=== PATIENT | female | born 1970 | race Caucasian/White ===

== ENCOUNTER 2023-05-29 20:04 | Emergency (ER) | payer OTHER, SELFPAY ==
--- NOTE | ~2023-05-29 | XR_ITS ---
EXAM: XR shoulder LT min 2V DATE: 05/29/2023 23:43 HISTORY: Fall/ LEFT SHOULDER PAIN . COMPARISON: The. FINDINGS: Normal mineralization. No fracture or dislocation. No lytic or blastic lesion. Moderate AC joint and mild glenohumeral joint osteoarthritis. No erosion or periosteal change. Soft tissues with in normal limits. IMPRESSION: No acute osseous finding in the left shoulder. Reviewed, dictated and finalized at location K. SCAPE ARCHITECT AND PLANNER
--- NOTE | ~2023-05-29 | CT_ITS ---
EXAMINATION: CT abdomen pelvis w con DATE: 05/29/2023 23:50 INDICATION: Right abd pain TECHNIQUE: Computed tomography (CT) of the abdomen and pelvis was performed with 100 mL Omnipaque-350 intravenous contrast. Automated exposure control and iterative reconstruction technique were employe d. The dose-length product was 606.83 mGy-cm. COMPARISON: None. FINDINGS: Lower thorax: Bibasilar scar/atelectasis. Small bilateral pleural fluid collections. Liver: Enlarged. Diffusely low density somewhat heterogeneous liver parenchyma. Biliary/Gallbladder: Gallbladder is absent. Mild dilation of the common bile duct likely secondary to cholecystectomy. Pneumobilia. Pancreas: No mass or duct dilation. Spleen: 1.4 cm splenic hypodensity, possible cyst or hemangioma. Small pericapsular fluid collection. Adrenals:No mass. Kidneys: No suspicious mass, obstructing stone, or hydronephrosis. GI tract: Status post gastric surgery. Mild distal esophageal and gastric wall edema. No small or lar ge bowel dilation. Appendix not confidently visualized Mesentery/Peritoneum: No ascites, mass, or free air. Retroperitoneum: No mass. Pelvis: Normal urinary bladder. Absent uterus. Bilateral ovaries not confidently visualized. Soft Tissues: Soft tissues and body wall unremarkable. Bones: No acute osseous finding. IMPRESSION: Small bilateral pleural effusions. Hepatomegaly with steatosis. Heterogeneous liver parenchyma may be secondary to the steatosis, hepati tis, or cirrhosis. Pneumobilia. Correlate with biliary labs and any history of prior biliary/pancreatic procedures. Small perisplenic fluid collection may represent a small hematoma from recent overt or trivial trauma , possibly due to rupture/leakage of the subjacent splenic cyst/hemangioma. Reviewed, dictated and finalized at location K. INSPECTOR IMPRESSION: Small bilateral pleural effusions. Hepatomegaly with steatosis. Heterogeneous liver parenchyma may be secondary to the steatosis, hepatitis, or cirrhosis. Pneumobilia. Correlate with biliary labs and any history of prior biliary/pancr eatic procedures. Small perisplenic fluid collection may represent a small hematoma from recent o vert or trivial trauma, possibly due to rupture/leakage of the subjacent spleni c cyst/hemangioma.
[2023-05-29 20:25] VITALS: BP 121/76; PULSE 68; RESP 18; TEMP 36.6; O2SAT 97
[2023-05-29 21:28] LABS: Appearance Urine Clear (Clear); Bilirubin Urine Negative (Negative); Blood Urine Negative (Negative); Color Urine Yellow (Yellow); Glucose Urine UA Negative (Negative); Ketones Urine Negative (Negative); Leukocyte Esterase Ur Negative LEU/UL (Negative); Nitrate Urine Negative (Negative); Protein Urine Negative (Negative); Specific Grav Ur 1.019 (1.001-1.035)
[2023-05-29 21:35] LABS: Add Urine Microscopic? NO
[2023-05-29 21:58] LABS: Basophils Absolute Auto 0.1 K/mm3 (0.0-0.1); Basophils Percent Auto 0.6 % (0.2-1.2); Eosinophils Absolute Auto 0.1 K/mm3 (0-0.3); Eosinophils Percent Auto 0.5 % (0-4.4); Hematocrit 39.4 % (37.0-47.0); Hemoglobin 12.2 g/dL (12.0-15.0); Immature Granulocyte Absolute 0.04 K/mm3 (0.00-0.031); Immature Granulocyte Percent A 0.4 % (0-0.5); Lymphocytes Absolute Auto 2.66 K/mm3 (0.9-3.2); Lymphocytes Percent Auto 24.1 % (18.3-44.2); Mean Corpuscular Volume 90.6 fl (80-100); Mean Platelet Volume 8.6 fl (7.4-10.4); Monocytes Absolute Auto 0.5 K/mm3 (0.1-0.6); Monocytes Percent Auto 4.9 % (2.6-8.5); Neutrophils Absolute Auto 7.7 K/mm3 (1.3-6.7); Neutrophils Percent Auto 69.5 % (45.5-73.1); Platelet Count Result 342 k/mm3 (150-375); Red Blood Count 4.35 M/mm3 (4.2-5.4); Red Cell Distribution Width 14.2 % (11.5-14.5); White Blood Count 11.1 K/mm3 (4.5-10.0)
[2023-05-29 22:11] LABS: Alanine Aminotransferase 16 U/L (6-35); Albumin Level 4.2 g/dL (3.5-5.1); Alkaline Phosphatase 91 U/L (38-126); Anion Gap 9 mmol/L (8-16); Aspartate Amino Transferase 22 U/L (14-36); Bilirubin,Total 0.5 mg/dL (0.2-1.3); Blood Urea Nitrogen 10 mg/dL (7-17); Calcium 9.1 mg/dL (8.4-10.2); Carbon Dioxide 24 mmol/L (22-30); Chloride 106 mmol/L (98-107); Estimated CRCL calculation 79 ml/min; Estimated Glomerular Filt Rate > 60; Glucose 97 mg/dL (65-110); Lipase 19 U/L (23-300); Potassium 3.7 mmol/L (3.4-5.0); Sodium 139 mmol/L (137-145)
[2023-05-29 22:48] VITALS: BP 121/88; PULSE 57; RESP 14; O2SAT 96
[2023-05-29] MEDS: ONDANSETRON INJ 4 MG/2 ML VIAL IV PUSH (23:26)
[2023-05-29] MEDS: MORPHINE SULFATE (*CRX) 4 MG/ML INJ IV PUSH (23:26)
[2023-05-30] MEDS: METOCLOPRAMIDE HCL INJ 10 MG/2 ML VIAL IV PUSH (00:50)
--- NOTE | 2023-05-30 00:57 | ED.ABDPAIN ---
HPI - Abdominal Pain General Chief Complaint: Abdominal Pain Stated Complaint: abd pain and nausea, hx gastric sleeve 2022 Time Seen by Provider: 05/29/23 22:44 History of Present Illness HPI narrative: Patient is a 52-year-old female who presents to the emergency department this evening complaining of generalized abdominal pain. Patient states that approximately 2-3 weeks ago she was seen in urgent care for abdominal pain and was informed that she has a kidney stone. Patient states at that time she had hematuria and calcium oxalate in her urine. Patient states that she has also been nauseous but denies any vomiting episodes. She denies any current hematuria or dysuria and is currently denying any constipation or diarrhea. Patient states that pain is in her mid epigastric region and sometimes radiates to her right flank. Patient states that she took Zofran at home for her nausea which did not alleviate her symptoms. She is currently denying any chest pain or shortness of breath. There are no other modifying, alleviating, or precipitating factors at this time. Related Data Allergies Allergy/AdvReac Type Severity Reaction Status Date / Time azithromycin Allergy Unknown Unknown Verified 05/29/23 23:31 codeine Allergy Unknown Unknown Verified 05/29/23 23:31 Sulfa (Sulfonamide Allergy Unknown Unknown Verified 05/29/23 23:31 Antibiotics) tetracycline Allergy Unknown Unknown Verified 05/29/23 23:31 lisinopril AdvReac Intermediate Unknown Verified 05/29/23 23:31 Review of Systems Review of Systems: All systems are reviewed and are negative unless stated otherwise in the HPI. Exam Narrative: General: Alert, awake, afebrile, in no acute distress. HEENT: PERRL, no rhinorrhea, no post nasal drip, oropharynx clear. Neck: Trachea midline, no JVD, no lymphadenopathy. Cardiovascular: Regular rate and rhythm, no murmurs, rubs or gallops, no peripheral edema. Respiratory: Clear to auscultation bilaterally, no tachypnea, no wheezing, no rhonchi, no rubs, no respiratory distress. Abdomen: Soft, nontender, nondistended, no rebound, no guarding, no peritoneal signs. Musculoskeletal: No joint swelling or deformity, normal muscle tone. Skin: No rashes or petechia, no signs of infection. Psychiatric: Alert and oriented, normal behavior and judgment for situation. Neurological: Alert and oriented to person, place, and time. Follows all commands. No focal deficits, speech is clear and fluent. Course Vital Signs Vital signs: Vital Signs Temperature 97.9 F 05/29/23 20:25 Pulse Rate 68 05/29/23 20:25 Respiratory Rate 18 05/29/23 20:25 Blood Pressure 121/76 05/29/23 20:25 Pulse Oximetry 97 05/29/23 20:25 Oxygen Delivery Room Air 05/29/23 20:25 Temperature 97.9 F 05/29/23 20:25 Pulse Rate 57 L 05/30/23 01:22 Respiratory Rate 16 05/30/23 01:22 Blood Pressure 129/81 05/30/23 01:22 Pulse Oximetry 97 05/30/23 01:22 Oxygen Delivery Room Air 05/29/23 20:25 MDM - Abdominal Pain MDM Narrative Medical decision making narrative: The patient was evaluated by myself in the emergency department. History is obtained from patient who is an independent historian and physical exam was performed. External medical records were reviewed at this time. IV was established and pertinent tests were ordered. Patient was administered 4 mg of IV Zofran and 4 mg of IV morphine for nausea and pain. Patient's nausea did not improve after the Zofran and she was administered 10 mg of IV Reglan at this time. EKG was obtained which revealed sinus bradycardia at a rate of 55 beats per minute. EKG was independently interpreted by me and is currently pending official cardiology read. Laboratory results obtained revealing no acute process. Imaging studies obtained included CT abdomen and pelvis with IV contrast which was independently interpreted by me revealing hepatic steatosis, splenic hemangioma otherwise no acute process
--- NOTE | 2023-05-30 01:01 | ECG_ITS ---
Measurements Intervals [place] Rate: 55 P: 33 DE: 149 QRS: -7 QRSD: 93 T: -5 QT: 440 QTc: 422 Interpretive Statements SINUS BRADYCARDIA VOLTAGE CRITERIA FOR LVH BORDERLINE ST-T WAVE ABNORMALITY- ANT/INF LEADS BASELINE ARTIFACT- I, III, AVL BORDERLINE ECG COMPARED TO ECG 08/07/2018 13:54:17 SINUS BRADYCARDIA NOW PRESENT Electronically Signed On 05-30-2023 6:49:00 SAFETY ATTENDANT by Shubham Quinn D.O.
[2023-05-30 01:22] VITALS: BP 129/81; PULSE 57; RESP 16; O2SAT 97
== END 2023-05-30 02:12 | disposition home or self-care (01) ==
PROVIDERS: Emergency Provider Emergency Medicine
DX: R10.84 Generalized abdominal pain (principal); K76.0 Fatty (change of) liver, not elsewhere classified; Z98.84 Bariatric surgery status; M25.512 Pain in left shoulder; Z87.442 Personal history of urinary calculi; R00.1 Bradycardia, unspecified; R94.31 Abnormal electrocardiogram [ECG] [EKG]
CPT/HCPCS: 36415; 73030; 74177; 80053; 81003; 83690; 85025; 93005; 96374; 96375; 99284; J2270; J2405; J2765; Q9967

== ENCOUNTER 2023-10-23 18:11 | Emergency (ER) | payer MEDICAID, SELFPAY ==
[2023-10-23 18:20] VITALS: BP 124/79; PULSE 71; RESP 12; TEMP 36.6; O2SAT 99
--- NOTE | 2023-10-23 20:00 | PC.NURSE ---
Patient states she has a history of migraines and feels like this is way worse than migraine pain. 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 patient states that she has had multiple concussions and in CT scans for those concussions she was told that she has degenerative changes to the cervical spine and is concerned with the amount of pain she is feeling.
--- NOTE | 2023-10-23 20:31 | ED.NECK ---
HPI - Neck Pain/Injury General Chief Complaint: Neck Pain/Injury Stated Complaint: NECK PAIN/BILATERAL SHOULDER PAIN Time Seen by Provider: 10/23/23 19:55 Source: patient Limitations: no limitations History of Present Illness HPI Narrative: Patient is a 52-year-old female presents to the emergency department complaining of neck pain that radiates to her bilateral shoulders. Patient notes that back in July towards the end of the month she take a baseball to the head from her son and was diagnosed with a concussion and since then she has been having frequent episodes of pain in her neck that radiates to her bilateral shoulders and she has been worked up for this as an outpatient is seen a neurologist to his planning to refer her to a pain specialist which she has not been referred to a neurosurgeon she also notes that she has had CTs of her head and cervical spine in addition to MRIs of her head and cervical spine in which she was told she has degenerative disc disease. Patient notes that her most recent flare-up is been going on for the past couple days and she has been trying NSAIDs, Tylenol, baclofen, cyclobenzaprine and not getting any significant relief. 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 Patient denies urinary incontinence, stool incontinence, saddle anesthesia, numbness, weakness, paresthesias. Related Data Allergies Allergy/AdvReac Type Severity Reaction Status Date / Time azithromycin Allergy Unknown Unknown Verified 05/29/23 23:31 codeine Allergy Unknown Unknown Verified 05/29/23 23:31 Sulfa (Sulfonamide Allergy Unknown Unknown Verified 05/29/23 23:31 Antibiotics) tetracycline Allergy Unknown Unknown Verified 05/29/23 23:31 lisinopril AdvReac Intermediate Unknown Verified 05/29/23 23:31 Review of Systems Review of Systems: A 10 system review of systems was completed on the patient and is negative except for what is stated in the HPI. Nursing and ancillary documentation was reviewed. PMFSH Comments At time of signature, I have reviewed and agree with nursing past medical, surgical, social and family history unless otherwise noted. Please see the nursing chart for further information. There is no relevant family history pertinent to the presenting complaint. Exam Narrative: CONST: No acute distress. Well nourished. HENMT: Head is normocephalic and atraumatic. Moist mucous membranes. No posterior oropharynx erythema. EYES: No conjunctival icterus, injection, or pallor. PERRL. NECK: No meningeal signs. No carotid bruits bilaterally. Mild bilateral paracervical muscle spasms and mild bilateral trapezius spasms. RESP: Able to speak in full sentences. CARDIO: Regular rate. Regular rhythm. 2+ radial pulses bilaterally. GI: Nondistended. SKIN: No rashes or lesions noted on exposed skin. NEURO: Oriented x3. Moves all extremities. Motor strength is 5/5 bilateral upper extremities. Sensation intact to light touch throughout bilateral upper extremities. EXTREM/MSK/BACK: No pedal edema. PSYCH: Normal affect. Course Vital Signs Vital signs: Vital Signs Temperature 97.9 F 10/23/23 18:20 Pulse Rate 71 10/23/23 18:20 Respiratory Rate 12 10/23/23 18:20 Blood Pressure 124/79 10/23/23 18:20 Pulse Oximetry 99 10/23/23 18:20 Oxygen Delivery Room Air 10/23/23 18:20 Temperature 97.9 F 10/23/23 18:20 Pulse Rate 71 10/23/23 18:20 Respiratory Rate 12 10/23/23 18:20 Blood Pressure 124/79 10/23/23 18:20 Pulse Oximetry 99 10/23/23 18:20 Oxygen Delivery Room Air 10/23/23 18:20 MDM - Neck Pain/Injury MDM Narrative Medical decision making narrative: Patient presents with the above complaint. Initial vitals are remarkable for no significant abnormalities. Physical examination as noted above. Differential diagnosis includes was not limited to: Cervical radiculopathy, muscle spasms, muscul
[2023-10-23] MEDS: KETOROLAC 30 MG/ML VIAL (*BKC) IM (20:45)
[2023-10-23] MEDS: diazePAM (*CRX) 5 MG TABLET PO (20:46)
[2023-10-23] MEDS: HYDROcodone/acetaminophen (*CRX) 5-325 MG TABLET 1 TAB PO (21:09)
[2023-10-23 21:33] VITALS: BP 137/72; PULSE 72; RESP 18; TEMP 36.6; O2SAT 98
== END 2023-10-23 21:35 | disposition home or self-care (01) ==
PROVIDERS: Emergency Provider Student in an Organized Health Care Education/Training Program; PCP Family Medicine
DX: M54.12 Radiculopathy, cervical region (principal); S16.1XXA Strain of muscle, fascia and tendon at neck level, initial encounter; W21.05XA Struck by basketball, initial encounter
CPT/HCPCS: 96372; 99283; A9270; J1885

== ENCOUNTER → 2024-10-03 16:12 | Emergency (ER) | payer OTHER, SELFPAY ==
[2024-10-03 16:16] VITALS: BP 141/85; PULSE 66; TEMP 36.3; O2SAT 98
--- OUTSIDE RECORDS SUMMARY | 2024-10-03 16:16 | XMS_ITS | Encounter Summary ---
Author Organization [facility] Address 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
--- OUTSIDE RECORDS SUMMARY | 2024-10-03 16:16 | XMS_ITS | Encounter Summary ---
Author Organization [facility] Address [facility] [place] [address] Care Team Providers Care Voice Over Announcer Name Role Phone Angel Andrade MD Unavailable [phone] Simon Hughes MD Primary Care Provider [phone] Emerson Watson MD Primary Care Provider [phone] Emerson Watson MD Primary Care Provider [phone] Emerson Watson MD Primary Care Provider [phone] Emerson Watson MD Primary Care Provider [phone] Reji Ramirez MD Unavailable [phone] Encounter Details Date Type Department Care Team (Late st Contact Info) Description 03/25/2022 MyChart Message Enc [facility] [address] [place] [address] Emerson Watson MD [address] [place], [place] [id number] Rose Guallpa 1970 Social History Tobacco Use Types Packs/Day Years Used Date Smoking Tobacco: Never Smokeless Tobacco: Never Alcohol Use Standard Drinks/Week Comments Yes 0 (1 standard drink = 0.6 oz pur e alcohol) 2 drinks per week PHQ-2 Answer Date Recorded PHQ-2 Score - If the patient scores above 3, please move on to questions 3-9 0 10/01/2020 Comments No Sex and Gender Information Value Date Recorded Sex Assigned at Female 04/10/2024 11:52 AM LIVESTOCK LABORER Legal Sex Female 7:00 PM CDT Gender Identity Female 05/08/2024 9:04 PM LIVESTOCK LABORER Sexual Orientation Straight 05/08/2024 9: 04 PM LIVESTOCK LABORER COVID-19 Exposure Response Date Recorded In the last 10 days, have yo u been in contact with someone who was confirmed or suspected to have Coronavirus/COVID-19? No / Unsure 03/23/2022 10:57 AM LIVESTOCK LABORER documented as of this encounter Functional Status * RETIRED Are you deaf or do you have serious difficulty hearing Answer Date of Assessment Author Status No 09/25/2019 10:23 PM CDT Acti ve * RETIRED Are you blind or do you have serious difficulty seeing, even when wearing glasses? Answer Date of Assessment Author Status No 09/25/2019 10:23 PM CDT Acti ve * Do you have serious difficulty walking or climbing stairs? Answer Date of Assessment Author Status No 09/25/2019 10:23 PM CDT Arcelia Ahn RN Active * Do you have difficulty dressing or bathing? Answer Date of Assessment Author Status No 09/25/2019 10:23 PM CDT Arcelia Ahn RN Active * Because of a physical, mental, or emotional condition, do you have difficulty doing errands alone such as visiting a doctor's office or shopping? Answer Date of Assessment Author Status No 09/25/2019 10:23 PM CDT Arcelia Ahn RN Active documented as of this encounter Mental Status * Because of a physical, mental, or emotional condition, do you have serious difficulty concentrating, remembering, or making decisions? Answer Entry Date Author Status No 09/25/2019 10:23 PM CDT Arcelia Ahn, RN Active documented in this encounter Progress Notes * Emerson Watson MD - 03/31/2022 4:55 PM CST Addressed on other thread. Will need OV to assess and med changes STOCK LABORER documented in this encounter Plan of Treatment Upcoming Encounters Date Type Department Care Team (Late st Contact Info) Description 01/21/2025 2:20 PM CDT Office Visit [address] [place] [address] Emerson Watson MD [address] [place] [address] documented as of this encounter Visit Diagnoses Not on filedocumented in this encounter Additional Health Concerns Infection Onset Date Last Indicated Resolved Time COVID-19 Rule Out 07/26/2022 07/26/2022 07/26/2022 4:24 PM CDT COVID-19 Rule Out 03/10/2023 03/10/2023 03/10/2023 2:55 PM LIVESTOCK LABORER COVID-19 Rule Out 03/18/2023 03/18/2023 03/18/2023 2:42 PM LIVESTOCK LABORER RSV 03/18/2023 03/18/2023 03/28/2023 12:3 2 AM LIVESTOCK LABORER Influenza - Seasonal 03/18/2023 03/18/2023 024 12:32 AM LIVESTOCK LABORER COVID-19 Rule Out 11/24/2023 11/24/2023 11/24/2023 10:13 AM CDT COVID-19 Rule Out 03/22/2024 03/22/2024 03/22/2024 4:59 PM LIVESTOCK LABORER COVID-19 Rule Out 04/30/2024 04/30/2024 04/30/2024 1:33 PM LIVESTOCK LABORER Assessment Noted Time PHQ-9 Depression Total Score: 0 10/02/19 2:26 PM CDT documented as of this encounter Care Teams Voice Over Announcer Relationship Specialty Start Date End Date Simon Hughes MD [address] [place] [address] [place] [address] PCP - General INTERNAL MEDICINE 09/10/21 06/15/22 Emerson Watson MD [facility] [place] [address] PCP - General FAMILY PRACTICE 06/16/22 08/01/22 Emerson Watson MD [address] [place] [address] PCP - General FAMILY PRACTICE 08/03/22 08/07/22 Emerson Watson MD [address] [facility] [place] [address] PCP - General FAMILY PRACTICE 08/02/22 08/02/22 Emerson Watson MD [address] [place] [address] [place] [address] PCP - General FAMILY PRACTICE 08/11/22 Angel Andrade MD [address] [address] Referring Physician GASTROENTEROLOGY 12/17/20 [place] [address] [place] [address] SURGERY 03/10/23 documented as of this encounter
--- OUTSIDE RECORDS SUMMARY | 2024-10-03 16:16 | XMS_ITS | Encounter Summary ---
Author Organization [facility] Address [facility] [place] [address] Care Team Providers Care Pipe Welder Name Role Phone Angel Andrade MD Unavailable [phone] Emerson Watson MD Primary Care Provider [phone] Reji Ramirez MD Unavailable [phone] Encounter Details Date Type Department Care Team (Late st Contact Info) Description 10/31/2023 Democracy Enginet Message Enc [facility] [address] [place] [address] Emerson Watson MD [address] [place] [address] Medication Options for neck pain Social History Tobacco Use Types Packs/Day Years Used Date Smoking Tobacco: Never Passive Smoke Exposure: Never Smokeless Tobacco: Never Alcohol Use Standard Drinks/Week Comments Yes 0 (1 standard drink = 0.6 oz pur e alcohol) 2 drinks per week Humiliation, Afraid, Rape, and Kick questionnair e Answer Date Recorded Within the last year, have y ou been afraid of your partner or ex-partner? No 06/27/2022 Within the last year, have y ou been humiliated or emotionally abused in other ways by your partner or ex-partner? No Within the last year, have y ou been kicked, hit, slapped, or otherwise physically hurt by your partner or ex-partner? No 06/27/2022 Within the last year, have y ou been raped or forced to have any kind of sexual activity by your partner or ex-partner? No 06/27/2022 Social Connection and Isolat ion Panel [NHANES] Answer Date Recorded In a typical week, how many times do you talk on the phone with family, friends, or neighbors? More than three times a week 05/16/2022 How often do you get togethe r with friends or relatives? More than three times a week 05/16/2022 How often do you attend chur or adventist services? More than 4 times per year 05/16/2022 Do you belong to any clubs o r organizations such as latter-day groups, unions, fraternal or athletic groups, or school groups? Yes 05/16/2022 How often do you attend meet ings of the clubs or organizations you belong to? More than 4 times per year 05/16/2022 Are you , , di vorced, , never , or living with a partner? 05/16/2022 AUDIT-C Answer Date Recorded Q1: How often do you have a drink containing alc ohol? Monthly or less 05/16/2022 Q2: How many drinks containi ng alcohol do you have on a typical day when you are drinking? 3 or 4 05/16/2022 Q3: How often do you have si x or more drinks on one occasion? Never 05/16/2022 Overall Financial Resource Strain (CARDIA) Answe r Date Recorded How hard is it for you to pa y for the very basics like food, housing, medical care, and heating? Not hard at all 06/27/2022 PHQ-2 Answer Date Recorded Patient Health Questionnaire-2 Score 0 08/24/2023 [facility] - Occupational Stress Questionnaire Answer Date Recorded Do you feel stress - tense, restless, nervous, or anxious, or unable to sleep at night because your mind is troubled all the time - these days? To some extent 05/16/2022 Exercise Vital Sign Answer Date Recorde d On average, how many days pe r week do you engage in moderate to strenuous exercise (like a brisk walk)? 0 days 05/16/2022 On average, how many minutes do you engage in exercise at this level? 0 min 05/16/2022 Hunger Vital Sign Answer Date Recorded Within the past 12 months, y ou worried that your food would run out before you got the money to buy more. Never true 06/28/19 23 Within the past 12 months, t he food you bought just didn't last and you didn't have money to get more. Never true 06/27/2022 PRAPARE - Transportation Answer Date Re corded In the past 12 months, has l ack of transportation kept you from medical appointments or from getting medications? No 05/2022 In the past 12 months, has l ack of transportation kept you from meetings, work, or from getting things needed for daily living? No 06/27/2022 Housing Stability Vital Sign Answer Gregory e Recorded In the last 12 months, was t here a time when you were not able to pay the mortgage or rent on time? No 06/27/2022 In the last 12 months, how many places have you lived? 1 06/27/2022 In the last 12 months, was t here a time when you did not have a steady place to sleep or slept in a custodial (including now)? No 06/27/2022 Comments No Sex and Gender Information Value Date Recorded Sex Assigned at Female 04/10/2024 11:52 AM ROOFER HELPER VINYL COATING Legal Sex Female 7:00 PM CDT Gender Identity Female 05/08/2024 9:04 PM ROOFER HELPER VINYL COATING Sexual Orientation Straight 05/08/2024 9: 04 PM ROOFER HELPER VINYL COATING documented as of this encounter Functional Status * Are you deaf or do you have serious difficulty hearing Answer Date of Assessment Author Status No 06/27/2022 11:33 PM Kimberly Ponce RN Active * Are you blind or do you have serious difficulty seeing, even when wearing glasses? Answer Date of Assessment Author Status No 06/27/2022 11:33 PM Kimberly Ponce RN Active * Do you have serious difficulty walking or climbing stairs? Answer Date of Assessment Author Status No 06/27/2022 11:33 PM Kimberly Ponce RN Active * Do you have difficulty dressing or bathing? Answer Date of Assessment Author Status No 06/27/2022 11:33 PM Kimberly Ponce RN Active * Because of a physical, mental, or emotional condition, do you have difficulty doing errands alone such as visiting a doctor's office or shopping? Answer Date of Assessment Author Status No 06/27/2022 11:33 PM CDT Kimberly Polanco RN Active documented as of this encounter Mental Status * Because of a physical, mental, or emotional condition, do you have serious difficulty concentrating, remembering, or making decisions? Answer Entry Date Author Status No 06/27/2022 11:33 PM CDT Kimberly Polanco RN Active documented in this encounter Progress Notes * Emerson Watson MD - 11/01/2023 10:07 AM CDT TCAs third line treatment for nerve pain. Can trial and would likely see some improvement in symptoms. Would like psych to manage. documented in this encounter Plan of Treatment Upcoming Encounters Date Type Department Care Team (Late st Contact Info) Description 01/21/2025 2:20 PM CDT Office Visit [facility] [address] [place] [address] Emerson Watson MD [address] [place] [address] documented as of this encounter Visit Diagnoses Not on filedocumented in this encounter Additional Health Concerns Infection Onset Date Last Indicated Resolved Time COVID-19 Rule Out 11/24/2023 11/24/2023 11/24/2023 10:13 AM CDT COVID-19 Rule Out 03/22/2024 03/22/2024 03/22/2024 4:59 PM ROOFER HELPER VINYL COATING COVID-19 Rule Out 04/30/2024 04/30/2024 04/30/2024 1:33 PM ROOFER HELPER VINYL COATING Assessment Noted Time PHQ-9 Depression Total Score: 0 02/14/20 12:57 PM ROOFER HELPER VINYL COATING documented as of this encounter Care Teams Pipe Welder Relationship Specialty Start Date End Date Emerson Watson MD [address] [place] [address] PCP - General FAMILY PRACTICE 08/11/22 Angel Andrade MD [address] [facility] [address], [place] [address] Referring Physician GASTROENTEROLOGY 12/17/20 [place] [address] [place] [address] SURGERY 03/10/23 documented as of this encounter
--- OUTSIDE RECORDS SUMMARY | 2024-10-03 16:16 | XMS_ITS | Encounter Summary ---
Author Organization [employer] Address [address] [place] [address] Care Team Providers Care Plant Control Aide Name Role Phone Emerson Watson MD Primary Care Provider Encounter Details Date Type Department Care Team (Latest Contact Info) Description 01/12/2005 Outpatient Historical HIS PATIENT IN A BED Michel Irby MD [address] [place], [place] [id number] DYSMENORRHEA (Primary Dx) Social History Tobacco Use Types Packs/Day Years Used Date Smoking Tobacco: Never Assessed Comments Unknown Sex and Gender Information Value Date Recorded Sex Assigned at Not on file Legal Sex Female 3:33 AM TIP BANDER Gender Identity Not on file Sexual Orientation Not on file documented as of this encounter Plan of Treatment Not on file documented as of this encounter Procedures Procedure Name Priority Date/Time Associated Diagnosis Comments URINALYSIS WITH REFLEX CULTURE Routine 01/13/2005 8:30 AM CDT URINALYSIS W/REFLEX MICROSCOPIC Routine 01/13/2005 8:30 AM CDT CBC WITH DIFFERENTIAL Routine 01/13/2005 4:35 AM CDT CBC WITH DIFFERENTIAL Routine 01/13/2005 4:35 AM CDT POC , URINE Routine 01/12/2005 8:20 AM CDT HEMOGLOBIN AND HEMATOCRIT Routine 01/12/2005 8:05 AM CDT BASIC METABOLIC PANEL Routine 01/12/2005 8:05 AM CDT documented in this encounter Results * URINALYSIS (01/13/2005 8:30 AM CDT) COLOR UA Yellow INTERFACE SYSTEM CLARITY UA Clear Clear INTERFACE SYSTEM SPECIFIC GRAVITY UA 1.010 1.001 - 1.035 INTERFACE SYSTEM PH UA 6.5 5.0 - 8.0 INTERFACE SYSTEM LEUKOCYTE ESTERASE UA Negative Negative INTERFACE SYSTEM NITRITE UA Negative Negative INTERFACE SYSTEM PROTEIN UA Negative Negative INTERFACE SYSTEM GLUCOSE UA Negative Negative INTERFACE SYSTEM KETONES UA Negative Negative INTERFACE SYSTEM UROBILINOGEN UA <1 <1 mg/dL INTE RFACE SYSTEM BILIRUBIN UA Negative Negative INTERFA CE SYSTEM BLOOD UA Negative Negative INTERFACE SYSTEM 01/13/2005 8:30 AM CDT [facility] URINE ORDERABLES Final Result Performing Organization Address [facility] Phone Number INTERFACE SYSTEM Refer to clinic/hospital department * URINALYSIS WITH REFLEX CULTURE (01/13/2005 8:30 AM CDT) Pathologist [facility] URINE CULTURE ORDER Not indicated INTERFACE SYSTEM Comment: Criteria for a reflex culture include one or more of the following: Abn ormal nitrite, leukocyte esterase, WBCs or RBCs. Lack of qualifying criteria does not exclude the possiblity of a urinary tract infection. Dilute urine, drug interference, etc. may decrease the sensitivity of the criteria analytes. 01/13/2005 8:30 AM CDT [facility] URINE ORDERABLES Final Result Performing Organization Address [facility] Phone Number INTERFACE SYSTEM Refer to clinic/hospital department * (ABNORMAL) CBC WITH DIFFERENTIAL (01/13/2005 4:35 AM CDT) NEUTROPHILS 79(H) 45 - 70 % INTERFAC E SYSTEM LYMPHOCYTES 13(L) 16 - 45 % INTERFAC E SYSTEM MONOCYTES 8 3 - 13 % INTERFACE SYSTEM EOSINOPHILS 0 0 - 7 % INTERFAC E SYSTEM BASOPHILS 0 0 - 2 % INTERFACE SYSTEM NEUTROPHIL ABSOLUTE 13.56(H) 1.90 - 7.00 K/uL INTERFACE SYSTEM LYMPHOCYTE ABSOLUTE 2.22 0.70 - 4.50 K/uL INTERFACE SYSTEM MONOCYTE ABSOLUTE 1.36(H) 0.10 - 1.30 K/uL INTERFACE SYSTEM EOSINOPHIL ABSOLUTE 0.01 0.00 - 0.70 K/uL INTERFACE SYSTEM BASOPHILS ABSOLUTE 0.04 0.00 - 0.20 K/uL INTERFACE SYSTEM 01/13/2005 4:35 AM CDT Michel Irby MD HEMATOLOGY ORDERABLES Final R esult Performing Organization Address [facility] Co de Phone Number INTERFACE SYSTEM Refer to clinic/hospital department * (ABNORMAL) CBC WITH DIFFERENTIAL (01/13/2005 4:35 AM CDT) WBC 17.2(H) 4.0 - 9.8 K/uL INTERFACE SYSTEM RBC 4.26 3.90 - 4.90 M/uL INTERFACE SYSTEM HEMOGLOBIN 12.3 11.8 - 14.8 g/dL INTERFACE SYSTEM HEMATOCRIT 38.7 35.5 - 44.0 % INTERFACE SYSTEM MCV 90.8 82.0 - 99.0 fL INTERFACE SYSTEM MCH 28.9 27.2 - 32.6 pg INTERFACE SYSTEM MCHC 31.8 31.5 - 35.5 % INTERFACE SYSTEM RDW 13.7 11.5 - 14.5 % INTERFACE SYSTEM RDW-STDEV 45.1 37.1 - 48.7 fL INTERFACE SYSTEM PLATELETS 357(H) 140 - 350 K/uL INTERFACE SYSTEM MPV 9.0(L) 9.3 - 12.4 fL INTERFACE SYSTEM 01/13/2005 4:35 AM CDT Michel Irby MD HEMATOLOGY ORDERABLES Final R esult Performing Organization Address [facility] Co de Phone Number INTERFACE SYSTEM Refer to clinic/hospital department * POC , URINE (01/12/2005 8:20 AM CDT) HCG QUAL URINE Negative Negative INTER FACE SYSTEM SPECIFIC GRAVITY UA 1.015 1.001 - 1.035 INTERFACE SYSTEM 01/12/2005 8:20 AM CDT Michel Irby MD POINT OF CARE TESTING Final R esult Performing Organization Address [facility] Phone Number INTERFACE SYSTEM Refer to clinic/hospital department * BASIC METABOLIC PANEL (01/12/2005 8:05 AM CDT) GLUCOSE 87 65 - 109 mg/dL INTERFACE SYSTEM CREATININE 0.9 0.4 - 1.2 mg/dL INTERFACE SYSTEM CALCIUM 9.3 8.6 - 10.2 mg/dL INTERFACE SYSTEM BUN 13 6 - 20 mg/dL INTERFACE SYSTEM SODIUM 135 135 - 145 mmol/L INTERFACE SYSTEM POTASSIUM 3.7 3.5 - 4.9 mmol/L INTERFACE SYSTEM CHLORIDE 98 96 - 108 mmol/L INTERFACE SYSTEM CO2 28 22 - 30 mmol/L INTERFACE SYSTEM 01/12/2005 8:05 AM CDT Michel Irby MD CHEMISTRY ORDERABLES Final Re sult Performing Organization Address [facility] Phone Number INTERFACE SYSTEM Refer to clinic/hospital department * HEMOGLOBIN AND HEMATOCRIT (01/12/2005 8:05 AM CDT) HEMOGLOBIN 14.2 11.8 - 14.8 g/dL INTERFACE SYSTEM HEMATOCRIT 42.8 35.5 - 44.0 % INTERFACE SYSTEM 01/12/2005 8:05 AM CDT Michel Irby MD HEMATOLOGY ORDERABLES Final R esult Performing Organization Address [facility] Phone Number INTERFACE SYSTEM Refer to clinic/hospital department documented in this encounter Visit Diagnoses Diagnosis Dysmenorrhea- Primary documented in this encounter Care Teams Plant Control Aide Relationship Specialty Start Date End Date Emerson Watson MD [address] [place] [address] [place] [address] PCP - General Family Practice 09/20/22 documented as of this encounter
--- OUTSIDE RECORDS SUMMARY | 2024-10-03 16:16 | XMS_ITS | Encounter Summary ---
Author Organization [facility] Address [facility] [place] [address] Care Team Providers Care Build Master Name Role Phone Angel Andrade MD Unavailable [phone] Emerson Watson MD Primary Care Provider [phone] Reji Ramirez MD Unavailable [phone] Encounter Details Date Type Department Care Team (Late st Contact Info) Description 09/19/2023 XbyMet Message Enc [facility] [address] [place] [address] Emerson Watson MD [address] [place] [address] Health Form for Work Social History Tobacco Use Types Packs/Day Years [...] How often do you attend chur or catholic services? More than 4 times per year 05/16/2022 Do you belong to any clubs o r organizations such as restorationism groups, unions, fraternal or athletic groups, or [...] Recorded Patient Health Questionnaire-2 Score 0 08/24/2023 [facility] - [...] place to sleep or slept in a nursing home (including now)? No 06/27/2022 Comments No Sex and Gender Information Value Date Recorded Sex Assigned at Female 04/10/2024 11:52 AM BOXER OPERATOR Legal Sex Female 7:00 PM CDT Gender Identity Female 05/08/2024 9:04 PM BOXER OPERATOR Sexual Orientation Straight 05/08/2024 9: 04 PM BOXER OPERATOR documented as of this encounter Functional Status [...] Progress Notes * Emerson Watson MD - 09/19/2023 11:34 AM CDT This was filled out at least a week ago and should have been scanned in/taken care of. Not on my desk. * Rosa Patel MA - 09/19/2023 10:32 AM CDT do you have this form to complete? Please advise documented in this encounter Plan of Treatment Upcoming Encounters Date Type Department Care Team (Late st Contact Info) Description 01/21/2025 2:20 PM CDT Office Visit [facility] [address] [place] [address] Emerson Watson MD [address] [place] [address] documented as of this encounter Visit Diagnoses Not on filedocumented in this encounter Additional Health Concerns Infection Onset Date Last Indicated Resolved Time COVID-19 Rule Out 11/24/2023 11/24/2023 11/24/2023 10:13 AM CDT COVID-19 Rule Out 03/22/2024 03/22/2024 03/22/2024 4:59 PM BOXER OPERATOR COVID-19 Rule Out 04/30/2024 04/30/2024 04/30/2024 1:33 PM BOXER OPERATOR Assessment Noted Time PHQ-9 Depression Total Score: 0 02/14/20 12:57 PM BOXER OPERATOR documented as of this encounter Care Teams Build Master Relationship Specialty Start Date End Date Emerson Watson MD [address] [place] [address] [place] [address] PCP - General FAMILY PRACTICE 08/11/22 Angel Andrade MD [address] [address] Referring Physician GASTROENTEROLOGY 12/17/20 [place] [address] [facility] [address] SURGERY 03/10/23 documented as of this encounter
--- OUTSIDE RECORDS SUMMARY | 2024-10-03 16:16 | XMS_ITS | Encounter Summary ---
Author Organization [employer] Address [address] [place] [address] Care Team Providers Care Manager Intensive Care Unit Name Role Phone Emerson Watson MD Primary Care Provider [phone] Encounter Details Date Type Department Care Team (Latest Contact Info) Description 05/11/2001 Outpatient Historical HIS [facility] Henri Chris MD [address] [facility] [address] [place] [address] HEART DISEASE NOS (Primary Dx) Social History Tobacco Use Types Packs/Day Years Used Date Smoking Tobacco: Never Assessed Comments Unknown Sex and Gender Information Value Date Recorded Sex Assigned at Not on file Legal Sex Female 3:33 AM DIRECTOR OF INDUSTRIAL RELATIONS Gender Identity Not on file Sexual Orientation Not on file documented as of this encounter Plan of Treatment Not on file documented as of this encounter Visit Diagnoses Diagnosis Heart disease, unspecified- Primary documented in this encounter Care Teams Manager Intensive Care Unit Relationship Specialty Start Date End Date Emerson Watson MD [facility] [place] [address] PCP - General Family Practice 09/20/22 documented as of this encounter
--- OUTSIDE RECORDS SUMMARY | 2024-10-03 16:16 | XMS_ITS | Patient Health Record ---
Author Organization [facility] Address [address] [facility] [address] [place] [address] Support Name Relationship Address Phone Rose Guallpa Guarantor Unknown [phone] Reason For Referral No Information Plan Of Treatment No Information
--- OUTSIDE RECORDS SUMMARY | 2024-10-03 16:16 | XMS_ITS | Encounter Summary ---
Author Organization [facility] Address [address] [place] [address] Care Team Providers Care Arbitrator Name Role Phone Emerson Watson MD Primary Care Provider [phone] Encounter Details Date Type Department Care Team (Late st Contact Info) Description 05/11/2001 Outpatient Historical [facility] [address] [facility] [address] [address] Henri Pina MD [address] [facility] [address] [place] [address] Social History Tobacco Use Types Packs/Day Years Used Date Smoking Tobacco: Never Assessed Comments Unknown Sex and Gender Information Value Date Recorded Sex Assigned at Not on file Legal Sex Female 3:33 AM FIELD ARTILLERY OPERATIONS MAN Gender Identity Not on file Sexual Orientation Not on file documented as of this encounter Plan of Treatment Not on file documented as of this encounter Visit Diagnoses Not on filedocumented in this encounter Care Teams Arbitrator Relationship Specialty Start Date End Date Emerson Watson MD [address] [place] [address] [place] [address] PCP - General Family Practice 09/20/22 documented as of this encounter
--- OUTSIDE RECORDS SUMMARY | 2024-10-03 16:16 | XMS_ITS | Clinical Summary ---
Author Organization [facility] Address [address] [place] [address] Care Team Providers Care Diabetes Territory Manager Name Role Phone Dandre Chavez MD Unavailable [phone] Danielito Irving MD Unavailable [phone] Norm Carrillo MD Primary Care Provider [phone] Allergies Active Allergy Reactions Criticality Noted Date Comments Lisinopril Hives,Other (See comments),Edema High Lip swelling Sulfa (Sulfonamide Antibiotics) Hives Medium 09/09/2017 Tetracycline Hives Medium Medications FLUoxetine (PROzac) 40 mg capsule Take 80 mg by mouth daily Active erenumab-aooe (Aimovig Autoinjector) 140 mg/mL auto-injector Inject 140 mg under the skin every 30 (thirty) days Active ALPRAZolam (XANAX) 1 mg tablet Take 1 mg by mouth 4 (four) times a day as needed for anxiety Active metoprolol XL (TOPROL-XL) 50 mg extended release tablet Take 50 mg by mouth 2 (two) times a day Active traZODone (DESYREL) 100 mg tablet Take 200 mg by mouth nightly Active amitriptyline (ELAVIL) 25 mg tablet Take 25 mg by mouth nightly Active amLODIPine (NORVASC) 10 mg tablet Take 10 mg by mouth nightly Active hyoscyamine ER (LEVBID) 0.375 mg 12 hr tabletIndications: diarrhea Take 0.375 mg by mouth 2 (two) times a day Active metoclopramide (REGLAN) 5 mg tablet Take 5 mg by mouth 4 (four) times a day as needed Active pantoprazole DR (PROTONIX) 20 mg EC tablet Take 2 tablets (40 mg total) by mouth daily for 14 days 28 tablet 10/27/19 Active Additional Information Patient not taking.Reported on 01/24/2022 sucralfate (CARAFATE) 1 gram tablet Take 1 tablet (1 g total) by mouth 4 (four) times a day for 10 days 40 tablet 10/27/19 Active Additional Information Patient not taking.Reported on 01/24/2022 SUMAtriptan (IMITREX) 6 mg/0.5 mL solution Inject 0.5 mL (6 mg total) under the skin once as needed (migraine) 0.5 mL 01/05/20 Active ondansetron ODT (ZOFRAN-ODT) 4 mg disintegrating tablet Take 1 tablet (4 mg total) by mouth every 8 (eight) hours as needed for nausea or vomiting 20 tablet 02/04/20 Active Active Problems Problem Noted Date Diagnosed Date Mixed hyperlipidemia 01/25/2022 BMI 39.0-39.9,adult 01/24/2022 Assessment & Plan (01/24/2022 5:05 PM CDT): BMI is elevated, today's instructions and counseling include lifestyle education regarding diet Post-operative state 07/27/2021 Bile duct obstruction 06/18/2021 Overview (06/18/2021): Added automatically from request for surgery [id number] Epigastric pain 05/16/2021 Epigastric abdominal pain 12/17/2020 Hepatic steatosis 12/17/2020 Intractable abdominal pain 10/16/2019 Overview (10/24/2019): Added automatically from request for surgery [id number] Gastroesophageal reflux dise ase with esophagitis without hemorrhage 08/28/2014 Overview (06/30/2016): GERD Benign hypertension 07/08/2013 Overview (06/29/2016): Hypertension, benign Migraine with aura and witho ut status migrainosus, not intractable 08/16/2012 Overview (07/01/2016): Migraines Gastric ulcer 04/04/2012 Overview (06/30/2016): Gastric ulcer Class 2 severe obesity due t o excess calories with serious comorbidity and body mass index (BMI) of 39.0 to 39.9 in adult 11/02/2010 Overview (06/30/2016): Obesity (BMI 30.0-34.9) Assessment & Plan (01/24/2022 5:06 PM CDT): BMI is elevated, today's instructions and counseling include lifestyle education regarding diet Irritable bowel syndrome 11/02/1992 Overview (06/29/2016): IBS (irritable bowel syndrome) Resolved Problems Problem Noted Date Diagnosed Date Resolved Date Candidal esophagitis 12/17/2020 022 Chronic prescription benzodiazepine use 12/17/2020 06/28/2021 Nausea 12/17/2020 06/28/2021 Overview (12/18/2020): Added automatically from request for surgery [id number] Acute tonsillitis due to oth er specified organisms 04/07/2018 06/28/2021 Assessment & Plan (04/07/2018 10:02 AM HEAD MILLER): Patient demonstrates acute exudate of tonsillitis. Patient was initially seen at [facility] urgent care. I spoke with the provider and patient was placed on clindamycin 300 mg q.i.d. And a Medrol Dosepak. Since starting that medication yesterday she has has noticed some improvement. I do not see any evidence of a peritonsillar abscess. Patient is to continue with this medication as prescribed. I expect this to be a self-limiting problem. Patient is also instructed increase her daily water consumption and maintain good oral hygiene care. Patient is to follow back up in my office in two weeks should her symptoms continue to be present. Has tingling sensation 07/03/201506/28 Overview (06/30/2016): Has tingling sensation Aldosteronism ([facility]) 06/29/2015 04/0 06/2021 Overview (07/02/2016): Hyperaldosteronism Fibrositis 08/28/2014 06/28/2021 Overview (06/30/2016): Fibromyalgia Depression 08/28/2014 06/28/2021 Overview (06/30/2016): Depression Hypokalemia 08/25/2014 06/28/2021 Overview (06/30/2016): Hypokalemia Arthralgia 08/06/2014 06/28/2021 Overview (06/30/2016): Joint pain Ankle swelling 07/31/2014 06/28/2021 Overview (06/30/2016): Ankle swelling Low back pain 07/31/2014 06/28/2021 Overview (06/30/2016): Lower back pain Knee pain 03/05/2014 06/28/2021 Overview (06/30/2016): Pain in knee Anaclitic depression 06/01/2011 022 Fatigue 06/01/2011 06/28/2021 Blurring of visual image 06/01/201106/2021 Photophobia 06/01/2011 06/28/2021 Pain in eye 06/01/2011 06/28/2021 Numbness 06/01/2011 06/28/2021 Endometriosis 06/01/2011 06/28/2021 Anxiety 09/02/2009 06/28/2021 Overview (07/06/2017): Description: not under control Hypertension 09/02/2009 01/24/2022 Cephalalgia 09/02/2009 06/28/2021 Immunizations Immunization Administration Dates Next Due Influenza, Quadrivalent, Spl it, Preservative Free, Intradermal 01/29/2015 Influenza, Quadrivalent, Spl it, Preservative Free, Intramuscular 01/24/2022,03/06/2020,12/24/2015 Influenza, Split 01/02/2013 Influenza, Trivalent, IM (MDV) 01/26/2015,2013,01/26/2012 Influenza, Unspecified 01/29/2015,2014,01/02/2013,01/25 Tdap 04/26/2019,09/28/2018 Surgical History Surgery Date Site/Laterality Comments HYSTERECTOMY Hysterectomy OTHER SURGICAL HISTORY benign lump removed from right breast CHOLECYSTECTOMY 2011 lap Cholecystectomy TUBAL LIGATION 2004 tubes tied OTHER SURGICAL HISTORY 2004 benign mass HYSTERECTOMY 2006 Hysterectomy OTHER SURGICAL HISTORY 2012 headache, left arm phlebitis: Drug therapy OTHER SURGICAL HISTORY 2012 Ankle pain: NSAIDS, ice, elevation, short leg orthosis OTHER SURGICAL HISTORY Anxiety: Psychiatric Consult TOTAL ABDOMINAL HYSTERECTOMY W/ BILATERAL SALPINGOOPHORECTOMY Hysterectomy, total abdominal, BSO CHOLECYSTECTOMY Cholecystectomy OTHER SURGICAL HISTORY 2016 Leg pain: Emergency room OTHER SURGICAL HISTORY 2016 Migraine headache: Emergency room visit OTHER SURGICAL HISTORY 2016 Hypokalemia: Hospitalization Medical History Medical History Date Comments Gastric ulcer stomach ulcer Tension headache Headache, tensi on Hypertension Hypertension Hx Other Medical Headache, migra ine Hx Other Medical stomach ulcers Hx Other Medical benign lump rem loc from right breast Anemia Anemia Depression Depression Constipation constipation Irritable bowel syndrome Irritab le bowel disease Hx Other Medical Gastroesophagea l reflux disease Hx Other Medical 2005 Headache, migra ine Hx Other Medical headache, left arm phlebitis; Comments: Discharged home. Hx Other Medical Ankle pain; Com ments: Return x 3 weeks Anxiety disorder Anxiety Hx Other Medical Leg pain; Comme nts: See ER records Hx Other Medical Migraine headac he; Comments: see ER records Hx Other Medical Hypokalemia; Co mments: see hospital records Migraine Family History Medical History Relation Name Comments Anxiety disorder Father Anxiety; Cancer Father Cancer; Gout Father Gout; Hyperlipidemia Father Hyperlipidemi a; Hypertension Father Hypertension; Other Father Alive and well; Prostate cancer Father Cancer, pros ray; Anxiety disorder Mother Anxiety; Gallbladder disease Mother gallblad dae disease; Hyperlipidemia Mother Hyperlipidemi a; Hypertension Mother Hypertension; Melanoma Mother Melanoma; Other Mother Alive and well; Skin cancer Mother cancer, skin; Prostate cancer Other 1 Family histo ry of Cancer, prostate; Heart disease Other 2 Family history of Heart disease; Hypertension Other 3 Family history of Hypertension; Lung cancer Other 4 Family history of Cancer, lung; Other Other 5 Family history of Cancer - stomach; Other Other 6 Family history of Cancer, esophageal; Diabetes Other 7 Family history of Diabetes mellitus; Gallbladder disease Sister 1 gallblad dae disease; Migraines Sister 2 Migraines; Other Sister 3 Urticaria & ang ioedema; Relation Name Status Comments Father Alive Mother Alive Other 1 Other 2 Other 3 Other 4 Other 5 Other 6 Other 7 Sister 1 Sister 2 Sister 3 Social History Tobacco Use Types Packs/Day Years Used Date Smoking Tobacco: Never Smokeless Tobacco: Never Tobacco Cessation:Counseling Given: Not Answered Alcohol Use Standard Drinks/Week Comments Yes 0 (1 standard drink = 0.6 oz pur e alcohol) socially Social Connection and Isolat ion Panel [NHANES] Answer Date Recorded In a typical week, how many times do you talk on the phone with family, friends, or neighbors? More than three times a week 07/06/2021 How often do you get togethe r with friends or relatives? Once a week 07/06/2021 How often do you attend chur or catholic services? More than 4 times per year 07/06/2021 Do you belong to any clubs o r organizations such as yazidi groups, unions, fraternal or athletic groups, or school groups? No 07/06/2021 How often do you attend meet ings of the clubs or organizations you belong to? Never 07/06/2021 Are you , , di vorced, , never , or living with a partner? 07/06/2021 AUDIT-C Answer Date Recorded Q1: How often do you have a drink containing alc ohol? Monthly or less 06/28/2021 Q2: How many drinks containi ng alcohol do you have on a typical day when you are drinking? 1 or 2 06/28/2021 Q3: How often do you have si x or more drinks on one occasion? Never 06/28/2021 Overall Financial Resource Strain (CARDIA) Answe r Date Recorded How hard is it for you to pa y for the very basics like food, housing, medical care, and heating? Not hard at all 07/06/2021 PHQ-2 Answer Date Recorded PHQ-2 Total Score (If total score is 3 or more points, staff should administer the PHQ-9) 0 01/24/2022 PRAPARE - Transportation Answer Date Re corded In the past 12 months, has l ack of transportation kept you from medical appointments or from getting medications? No 06/25 In the past 12 months, has l ack of transportation kept you from meetings, work, or from getting things needed for daily living? No 07/06/2021 Comments No Sex and Gender Information Value Date Recorded Sex Assigned at Not on file Legal Sex Female 5:23 PM HEAD MILLER Gender Identity Not on file Sexual Orientation Not on file Obstetrics History Last Filed Vital Signs Vital Sign Reading Time Taken Comments Blood Pressure 129/87 02/03/2022 5:07 PM [facility] M[facility]ER Pulse 60 02/03/2022 5:07 PM [facility] M[facility]ER Temperature 36.6 C (97.8 F) 02/03/2022 1:04 PM HEAD M[facility]ER Respiratory Rate 16 02/03/2022 5:07 PM HEAD M[facility]ER Oxygen Saturation 95% 02/03/2022 5:07 PM HEAD M[facility]ER Inhaled Oxygen Concentration - - Weight 103.4 kg (227 lb 15.3 oz) 02/03/2022 1:04 PM HEAD M[facility]ER Height 162.6 cm (5' 4) 02/03/2022 1:04 PM [facility] M[facility]ER Body Mass Index 39.13 02/03/2022 1:04 PM HEAD M[facility]ER Plan of Treatment Health Maintenance Due Date Last Done Comments Breast Cancer Screening-Mammogram 1969 Hepatitis B Screening 11/05/1987 Pneumococcal vaccine <65 (1 of 2 - PCV) 1988 Zoster Vaccine (1 of 2) 11/05/2019 Depression Screening 01/24/2023 01/24/2022 Regular Well Visit/Exam 18-64 01/24/2023 01/24/2022 Covid-19 Vaccine (4 - 2023-2 5 season) 2023 04/01/2021, 05/15/2020, 04/17/2020 Colon Cancer Screening-Colonoscopy 10/22/2024 10/22/2014 Influenza Vaccine (Season Ended) 2024 01/24/2022, 03/06/2020, 12/24/2015, Additional history exists DTaP/Tdap/Td Vaccine (3 - Td or Tdap) 04/26/2029 04/26/2019, 09/28/2018 Hepatitis C Screening Completed 04/26/2012 Colon Cancer Screening-CT Colonography Discontinued 10/22/2014 Colon Cancer Screening-DNA Stool Discontinued 10/23/19 15 Colon Cancer Screening-FIT Discontinued 10/22/2014 Colon Cancer Screening-Sigmoidoscopy Discontinued 10/22/2014 Medical Devices Explanted Type Area Casting Room Operator Device Identifier Shelf Expiration Date Model / Serial / Lot [employer] [id number] Shields Flexi-Stent 7fr 9cm Small Pigtail Flexible .035in Stent - [id number] Implanted:Qty : 1 on 12/18/2020 by Dandre Chavez MD at [facility] Explanted:Qty : 1 on 12/21/2020 by Dandre Chavez MD at [facility] [place] Stent N/A: Pancreas [employer] 07/24/2025 [id number] / / [id number] Conmed Aranza [id number] [place] Viabil 10mm 8.5fr 6cm 200cm Fully Covered Self Expand Pull - [id number] - [id number] Implanted:Qty : 1 on 12/18/2020 by Dandre Chavez MD at [facility] [place] Explanted:Qty : 1 on 12/21/2020 by Dandre Chavez MD at [facility] [place] Stent N/A: Bile Duct [employer] Aranza 01/22/2023 [id number] / [id number] / [employer] [id number] [place] Viabil 10mm 8.5fr 6cm 200cm Fully Covered Self Expand Pull - [id number] - [id number] Implanted:Qty : 1 on 10/23/2019 by Dandre Chavez MD at [facility] [place] Explanted:Qty : 1 on 10/25/2019 by Dandre Chavez MD N/A: Bile Duct [employer]med Aranza 06/09/2022 [id number] / [id number] / [employer] [id number] Shields Flexi-Stent 5fr 9cm Small Pigtail Flexible .035in Stent - [id number] Implanted:Qty : 1 on 10/23/2019 by Dandre Chavez MD at [facility] [place] Explanted:Qty : 1 on 10/25/2019 by Dandre Chavez MD N/A: Pancreas [employer] 04/26/2024 [id number] / / [id number] Procedures Procedure Name Priority Date/Time Associated Diagnosis Comments COLONOSCOPY REPORT 10/22/2014 SERUM HEPATITIS PANEL Routine 04/26/2012 12:36 PM [facility] M[facility]ER from Last 3 Months or Most Recently Relevant to Health Maintenance Results * COLONOSCOPY REPORT (10/22/2014) Anatomical Region Laterality Modality Other Narrative 10/22/2014 Ordered by an unspecified provider. us Historical Provider GI PROCEDURE ORDERABLES F inal Result * Serum Hepatitis panel (04/26/2012 12:36 PM HEAD MILLER) HBV surface ag NONREAC NONREAC HISTO RICAL RESULTS HAV ab, IgM NONREAC NONREAC HISTORIC AL RESULTS Comment: Early acute infection (within the prior 2 weeks) is not ruled out by this test. HBV core ab, IgM NONREAC NONREAC HISTORICAL RESULTS HCV ab NONREAC NONREAC HISTORICAL RESULTS Comment: EARLY ACUTE INFECTION (OCCURING DURING THE PRIOR 8-9 WEEKS) IS NOT RULED OUT BY THIS TEST. Serum 04/26/2012 12:3 6 PM [facility]ER Yamilka Oropeza MD LAB BLOOD ORDERABLES Final Result HISTORICAL RESULTS from Last 3 Months or Most Recently Relevant to Health Maintenance Insurance [facility] CHOICE PLUS [facility] CHOICE PLUS Advance Directives For more information, please contact: [phone] * Full Code (Latest Code Status on File) Date Activated Date Inactivated Comments 07/02/2021 1:38 PM 07/08/2021 9:14 PM * Full Code Date Activated Date Inactivated Comments 05/17/2021 12:52 AM 05/18/2021 9:19 PM * Full Code Date Activated Date Inactivated Comments 05/16/2021 11:59 PM 05/17/2021 12:52 AM * Full Code Date Activated Date Inactivated Comments 12/17/2020 9:04 PM 12/22/2020 6:37 PM * Full Code Date Activated Date Inactivated Comments 12/17/2020 7:26 PM 12/17/2020 9:04 PM Care Teams Diabetes Territory Manager Relationship Specialty Start Date End Date Norm Carrillo MD [address] [facility] [address], [place] [address] PCP - General Internal Medicine 01/06/22 Dandre Chavez MD [address] [facility] [address] [place] [address] Consulting Physician Gastroenterology 10/25/19 Danielito Irving MD [address] [facility] [address] [place] [address] Surgeon General Surgery 07/07/21
--- OUTSIDE RECORDS SUMMARY | 2024-10-03 16:16 | XMS_ITS | Clinical Summary ---
Author Organization [facility] Address [address] [place]: Epic Prelude ADT [place] [address] Care Team Providers Care Plywood Layup Line Core Feeder Name Role Phone Emerson Watson MD Primary Care Provider [phone] Allergies Active Allergy Reactions Criticality Noted Date Comments Jam Inhibitors Swelling,Hives,Unkn own High 12/24/2015 Other reaction(s): Unknown Amoxicillin Hives High 06/05/2018 Azithromycin Hives High 11/09/2011 Other reaction(s): Unknown Other reaction(s): Unknown Lisinopril Swelling High 08/31/2022 Sulfa (Sulfonamide Antibiotics) Hives,Other (See Comments),Rash,Unkn own High 12/24/2015 Reaction: Hives, Skin Rash, , , Reaction: Unknown, , , , Other reaction(s): Unknown Sulfa Dyne Hives High 06/07/2011 Tetracycline Hives High 06/07/2011 Other reaction(s): Hives, Unknown, Urticaria Other reaction(s): Unknown Reaction: Hives, , , , , , Topiramate Other (See Comments) 06/07/2011 Valsartan-Hydrochlorot hiazide Other (See Comments) 04/23/2020 Severe hypokalemia Medications ALPRAZolam 1 mg tablet Take 1 mg by mouth 4 times daily as needed. Active traZODone (DESYREL) 100 mg Oral tablet Take 300 mg by mouth daily at bedtime. Active FLUoxetine (PROzac) 20 mg capsule Take 40 mg by mouth daily. Takes 2 capsules every AM for a total of 80 mg per day. Active amLODIPine 5 mg tablet Take 5 mg by mouth daily. Active SPIRONOLACTONE ORAL Take 25 mg by mouth daily. Active cyclobenzaprine (FLEXERIL) 5 mg Tablet Take 5 mg by mouth 2 times daily as needed. 3 Active ondansetron (ZOFRAN ODT) 4 mg Tablet, Rapid Dissolve Take 4 mg by mouth every 8 hours as needed. 2 Active SUMAtriptan (IMITREX) 6 mg/0.5 mL Pen Injector Inject 6 mg by subcutaneous injection every 1 hour as needed. 3 Active famotidine (PEPCID) 20 mg tablet Take 1 Tablet (20 mg) by mouth 2 times daily. 60 Tablet 2 09/27/2022 4:00 PM CDT 3 Active ondansetron (Zofran) 4 mg Tablet Take 1 Tablet (4 mg) by mouth every 8 hours as needed for Nausea or Nausea/Vomiting. 50 Tablet 09/27/2022 4:00 PM CDT 3 Active HYDROcodone-jam taminophen (HYCET) 7.5-325 mg/15 mL SolutionIndicat ions:Postoperat madisyn abdominal pain,SBO (small bowel obstruction) (CMS/HCC) Take 15 mL by mouth every 6 hours as needed for Pain. Max Daily Amount: 60 mL 280 mL 3 Active Active Problems Patient Care Coordination No te Formatting of this note migh t be different from the original. Primary Care: Simon Hughes MD Referring Provider: Simon Hughes MD [address] [place] [address] Other: Dr Aleah Peraza MD Problem Noted Date Diagnosed Date SBO (small bowel obstruction) 09/30/2022 Postoperative abdominal pain 09/30/2022 Nausea and vomiting 09/30/2022 Insomnia, unspecified 09/23/2011 Fibromyalgia syndrome 09/23/2011 High blood pressure 06/07/2011 MDD (major depressive disorder) 06/07/2011 Generalized anxiety disorder 06/07/2011 OCD (obsessive compulsive disorder) 06/07/2011 Gastric ulcer, unspecified a s acute or chronic, without mention of hemorrhage, perforation, or obstruction 06/07/2011 IBS (irritable bowel syndrome) 06/07/2011 Family History Medical History Relation Name Comments Anxiety Father Cancer Father Hypertension Father Breast Cancer Maternal Aunt Anxiety Mother Hypertension Mother Relation Name Status Comments Father Maternal Aunt Mother Social History Tobacco Use Types Packs/Day Years Used Date Smoking Tobacco: Never Smokeless Tobacco: Never Tobacco Cessation:Counseling Given: Not Answered Alcohol Use Standard Drinks/Week Comments Not Currently 0 (1 standard drink = 0.6 oz pur e alcohol) rare Feeling Safe Answer Date Recorded Are you in a relationship wi th someone who hurts you emotionally and/or physically? 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 Gender Identity Not on file Sexual Orientation Not on file Occupation Industry Job Start Date Job End Date Not on file Not on file Not on file Not on file Last Filed Vital Signs Vital Sign Reading Time Taken Comments Blood Pressure 143/76 09/30/2022 8:28 AM CDT Pulse 58 09/30/2022 8:28 AM CDT Temperature 36.5 C (97.7 F) 09/30/2022 8:28 AM CDT Respiratory Rate 16 09/30/2022 8:28 AM CDT Oxygen Saturation 95% 09/30/2022 8:28 AM CDT Inhaled Oxygen Concentration - - Weight 99.8 kg (220 lb) 09/29/2022 3:43 PM CDT Height 162.6 cm (5' 4) 09/29/2022 3:43 PM CDT Body Mass Index 37.76 09/29/2022 3:43 PM CDT Plan of Treatment Health Maintenance Due Date Last Done Comments HEPATITIS B VACCINES (1 of 3 - 19+ 3-dose series) 1988 COLORECTAL SCREENING 2014 Colorectal Cancer Screening 2014 FIT-DNA Q 3 years 2014 FIT/FOBT Q 1 year 2014 Flex Sig/CT Colonography Q 5 years 2014 ZOSTER VACCINE (1 of 2) 11/05/2019 BREAST CANCER SCREENING 07/15/2021 07/16/19 21, 02/01/2016, 12/15/2004 INFLUENZA VACCINE (#1) 2024 0, 12/24/2015, 01/29/2015, Additional history exists DTAP/TDAP/TD VACCINES (3 - T d or Tdap) 04/26/2029 04/26/2019, 09/28/2018 Medical Devices Implanted Type Area Cheese Specialist Device Identifier Shelf Expiration Date Model / Serial / Lot Seamguard Endogia 60 Prpl [id number] - [id number] Implanted:Qt y: 1 on 09/26/2022 by Reji Ramirez MD at [facility] N/A: Stomach [employer] [id number] 05/14/2025 12BSGTRI 60P / / [id number] Seamguard Endogia 60 Blk [id number] - [id number] Implanted:Qt y: 1 on 09/26/2022 by Reji Ramirez MD at [facility] N/A: Stomach [employer] [id number] 03/01/2025 12BSGTRI 60B / / [id number] Seamguard Endogia 60 Blk [id number] - [id number] Implanted:Qt y: 1 on 09/26/2022 by Reji Ramirez MD at [facility] N/A: Stomach [employer] [id number] 03/01/2025 12BSGTRI 60B / / [id number] Seamguard Endogia 60 Prpl [id number] - [id number] Implanted:Qt y: 1 on 09/26/2022 by Reji Ramirez MD at [facility] N/A: Stomach [employer] [id number] 05/14/2025 12BSGTRI 60P / / [id number] Seamguard Endogia 60 Prpl [id number] - [id number] Implanted:Qt y: 1 on 09/26/2022 by Reji Ramirez MD at [facility] N/A: Stomach [employer] [id number] 05/14/2025 12BSGTRI 60P / / [id number] Procedures Procedure Name Priority Date/Time Associated Diagnosis Comments MAMMO 3D RANJANA DIAGNOSTIC BILAT W OR WO CAD Routine 07/15/2020 1:01 PM CDT Lump of right breast from Last 3 Months or Most Recently Relevant to Health Maintenance Results * MAMMO DIAG BILAT 3D RANJANA W OR WO CAD (07/15/2020 1:01 PM CDT) Anatomical Region Laterality Modality Breast Bilateral Mammography 07/15/2020 1:01 PM CDT Impressions 07/16/2020 7:15 AM CDT IMPRESSION: Negative and stable bilateral diagnostic tomogram. Negative limited right breast sonogram. Recommend clinical follow-up. OVERALL FINAL ASSESSMENT: BI-RADS CATEGORY 1: Negative DICTATION LOCATION: [facility] Narrative 07/16/2020 7:15 AM CDT BILATERAL DIAGNOSTIC DIGITAL MAMMOGRAM WITH 3D TOMOSYNTHESIS AND CAD AND LIMITED RIGHT BREAST SONOGRAM DATE: 07/15/2020 1:01 PM HISTORY: Abnormal outside CT report right breast. TECHNIQUE: A bilateral diagnostic tomogram was performed and is compared to outside studies from [facility] dated 09/21/2007. Low Dose full field Digital Breast tomosynthesis examination was performed with 2D and 3D acquisitions. Examination is read in conjunction with computer aided detection. BREAST COMPOSITION: Scattered fibroglandular densities. FINDINGS: No new masses, suspicious calcifications, or areas of asymmetry or distortion are identified. The images were reviewed using the CAD system. Sonography of the lower outer right breast was performed. This is where the CT described an abnormal finding. Sonography demonstrates heterogeneously dense or echogenic fibroglandular tissue. There is a tiny collection of benign-appearing cysts at 8:00. No suspicious mass, shadowing or distortion is identified. Procedure Note Nora Reilly MD - 07/16/2020 BILATERAL DIAGNOSTIC DIGITAL MAMMOGRAM WITH 3D TOMOSYNTHESIS AND CAD AND LIMITED RIGHT BREAST SONOGRAM DATE: 07/15/2020 1:01 PM HISTORY: Abnormal outside CT report right breast. TECHNIQUE: A bilateral diagnostic tomogram was performed and is compared to outside studies from [facility] dated 09/21/2007. Low Dose full field Digital Breast tomosynthesis examination was performed with 2D and 3D acquisitions. Examination is read in conjunction with computer aided detection. BREAST COMPOSITION: Scattered fibroglandular densities. FINDINGS: No new masses, suspicious calcifications, or areas of asymmetry or distortion are identified. The images were reviewed using the CAD system. Sonography of the lower outer right breast was performed. This is where the CT described an abnormal finding. Sonography demonstrates heterogeneously dense or echogenic fibroglandular tissue. There is a tiny collection of benign-appearing cysts at 8:00. No suspicious mass, shadowing or distortion is identified. IMPRESSION: Negative and stable bilateral diagnostic tomogram. Negative limited right breast sonogram. Recommend clinical follow-up. OVERALL FINAL ASSESSMENT: BI-RADS CATEGORY 1: Negative DICTATION LOCATION: [facility] Aleah Peraza MD MAMMO ORDERABLES Final Result from Last 3 Months or Most Recently Relevant to Health Maintenance [place] [address] [address] [id number] RX [employer] RX Member Subscriber Plan / Payer (Ef fective 2022-Present) Name:Rose Guallpa Relation to Subscriber:Spouse Payer ID:Not on file Group ID:[id number] Type:RX Commercial Address: [place] RX AGUILAR PLANS (INTERNAL) [facility] Plans Advance Directives For more information, please contact: [phone] * Full Code (Latest Code Status on File) Date Activated Date Inactivated Comments 09/30/2022 1:24 AM 09/30/2022 7:01 PM * Full Code Date Activated Date Inactivated Comments 09/26/2022 3:36 PM 09/28/2022 9:04 PM * Full Code Date Activated Date Inactivated Comments 09/26/2022 8:56 AM 09/26/2022 3:36 PM * Full Code Date Activated Date Inactivated Comments 09/01/2022 11:32 AM 09/01/2022 5:31 PM Care Teams Plywood Layup Line Core Feeder Relationship Specialty Start Date End Date Emerson Watson MD [address] [place] [address] [place] [address] PCP - General Family Practice 09/20/22
--- OUTSIDE RECORDS SUMMARY | 2024-10-03 16:16 | XMS_ITS | Patient Health Record ---
Author Organization [facility] Address [address] [place] [address] Care Team Providers Care Prevention Rn Name Role Phone Mitali Wade Primary Care Provider Unavail able JOANN ERAZO, INOCENTE Unavailable [phone] Allergies Allergen (clinical drug ingredient) Drug/Non Drug Allergy documented on EMR Reaction Allergy Type Onset Date Status Codeine Sulfate Unknown Drug Allergy A ctive Lisinopril Unknown Drug Allergy Active Sulfamethoxazole Unknown Drug Allergy Active Tetracycline HCl Unknown Drug Allergy Active Reason For Referral No Information Medications Medication SIG (Take, Route, Frequency, Duration) Notes Start Date End Date Status ALPRAZolam Active Hyoscyamine Sulfate SL 0.125 MG 1 tablet under the tongue and allow to dissolve as needed Sublingual QID for 30 days 11/25/2020 Active Protonix 40 MG 1 tablet Orally BID before meals for 30 day(s) 11/25/2020 Active oxyCODONE HCl 5 MG 1 tablet as needed Orally every 6 hrs Active Ondansetron 4 MG DISSOLVE 1 TABLET ON TONGUE 4 TIMES A DAY for 30 Active Reglan 5 MG 1 tablet before meal s Orally Twice a day Active Cyclobenzaprine HCl Not-Taking Metoprolol Tartrate 50 MG 1 tablet with food Orally Twice a day Active Bystolic Not-Taking Fluoxetine Active Dicyclomine HCl 10 MG 1 capsules Orally 3 times a day for 90 Not-Taking Aimovig Active traZODone HCl Active Ubrelvy Active SUMAtriptan Succinate 6 MG/0.5ML 0.5 ml may repeat dose after 1 hour as needed Subcutaneous Once a day Active Hyoscyamine Sulfate ER 0.375 MG TAKE 1 TABLET BY MOUTH EVERY 12 HOURS for 30 Active Dicyclomine HCl 20 MG 1 tablet Orally 3 time a day for 30 day(s) 05/24/2021 Active Ondansetron 4 MG 1 tablet on the tong ue and allow to dissolve Orally Once a day for 30 day(s) 05/24/2021 Active Social History Tobacco Use: Social History Observation Description Date Details (start date - stop date) Never Smoker NA - NA Tobacco Use/Smoking Question Answer Notes Are you a nonsmoker Problems Problem Type SNOMED Code ICD Code Onset Dates Problem Status W/U Status Risk Notes Problem Irritable bowel syndrome with diarrhea (095881726) Irritable bowel syndrome with diarrhea (K58.0) Active confirmed Problem 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 Problem Dysphagia (34710950) Dysphagia, unspecified (R13.10) Active confirmed Problem 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 Plan Of Treatment Pending Test Test Name Order Date Endoscopic Retrograde Cholangiopancreato graphy (ERCP) 10/16/2019 Insurance Providers Payer Name Payer Address Payer Phone Subscriber Number Group Number Insured Name Patient Relationship to Insured Coverage Start Date Coverage End Date [facility] [address] [place], [place] [id number] [phone] [id number] Rose Quintana Self - patient is the insured Medical (General) History Medical History History ICD Code Anxiety, depression, fibromy algia, GERD, Hypertension, Migraines, IBS, gallbladder disease SOD/papillary stenosis Pancreas divisum Surgical History Surgery Date(Month/Year) EGD [place] slight tortuosit y of esophagus, gastric erythema and nodularity, mild duodenal petechial erythema. Path- minimal chronic gastritis, neg for HP. Mild chronic duodentitis. No increase in IEL. Cholecystectomy Breast lumpectomy Hysterectomy Colonsocopy yrs ago ERCP 10/23/2019 Aliperti federico iary papillary stenosis s/p biliary sphincterotomy. Pancreas divisum s/p minor papilla sphincterotomy. Dual duct stents placed. Stents removed 10/25/2019. Morphologic changes of the P D of unclear clinical significance, might represent chronic pancreatitis. ERCP Aliperti biliary sphinecterotomy mi nor papilla sphincterotomy 10/23/2019 ERCP Aliperti biliary sphinc terotomywith dual stenting removed 12/21/20 12/18/20 EUS [place] 12/07/20
--- OUTSIDE RECORDS SUMMARY | 2024-10-03 16:16 | XMS_ITS | Referral Summary ---
Author Organization [facility] Address [address] [place] [address] Care Team Providers Care Installer Inspector Final Name Role Phone Dandre Chavez MD Unavailable [phone] Danielito Irving MD Unavailable [phone] Norm Carrillo MD Primary Care Provider [phone] Allergies Active Allergy Reactions Criticality Noted Date [...] (06/18/2021): Added automatically from request for surgery [id number] Epigastric pain 05/16/2021 Epigastric abdominal pain 12/17/2020 Hepatic steatosis 12/17/2020 Intractable abdominal pain 10/16/2019 Overview (10/24/2019): Added automatically from request for surgery [id number] Gastroesophageal reflux dise ase with esophagitis without [...] (12/18/2020): Added automatically from request for surgery [id number] Acute tonsillitis due to oth er specified organisms 04/07/2018 06/28/2021 Assessment & Plan (04/07/2018 10:02 AM CONE FORMER): Patient demonstrates acute exudate of tonsillitis. Patient was initially seen at [facility] urgent care. I spoke with the [...] 07/03/201506/28 Overview (06/30/2016): Has tingling sensation Aldosteronism ([facility]/HCC) 06/29/2015 04/0 06/2021 Overview (07/02/2016): Hyperaldosteronism Fibrositis [...] (MDV) 01/26/2015,2013,01/26/2012 Influenza, Unspecified 01/29/2015,2014,01/02/2013,01/25 Tdap 04/26/2019,09/28/2018 Social History Tobacco Use Types Packs/Day Years [...] week 07/06/2021 How often do you attend [facility] or jew services? More than 4 times per year 07/06/2021 Do you belong to any clubs o r organizations such as gnosticism groups, unions, fraternal or athletic groups, or [...] on file Legal Sex Female 5:23 PM CONE FORMER Gender Identity Not on file Sexual Orientation Not on file Last Filed Vital Signs Vital Sign Reading Time Taken Comments Blood Pressure 129/87 02/03/2022 5:07 PM CONE FORMER Pulse 60 02/03/2022 5:07 PM CONE FORMER Temperature 36.6 C (97.8 F) 02/03/2022 1:04 PM CONE FORMER Respiratory Rate 16 02/03/2022 5:07 PM CONE FORMER Oxygen Saturation 95% 02/03/2022 5:07 PM CONE FORMER Inhaled Oxygen Concentration - - Weight 103.4 kg (227 lb 15.3 oz) 02/03/2022 1:04 PM CONE FORMER Height 162.6 cm (5' 4) 02/03/2022 1:04 PM CONE FORMER Body Mass Index 39.13 02/03/2022 1:04 PM CONE FORMER Plan of Treatment Not on file Medical Devices Explanted Type Area Fruit Shipper Device Identifier Shelf Expiration Date Model / Serial / Lot [employer] 6575 Shields Flexi-Stent 7fr 9cm Small Pigtail Flexible .035in Stent - [id number] Implanted:Qty : 1 on 12/18/2020 by Dandre Chavez MD at [facility] Explanted:Qty : 1 on 12/21/2020 by Dandre Chavez MD at [facility] Stent N/A: Pancreas [employer] 07/24/2025 [id number] / / [id number] Conmed Aranza [id number] [place] Viabil 10mm 8.5fr 6cm 200cm Fully Covered Self Expand Pull - [id number] - [id number] Implanted:Qty : 1 on 12/18/2020 by Dandre Chavez MD at [facility] Explanted:Qty : 1 on 12/21/2020 by Dandre Chavez MD at [facility] Stent N/A: Bile Duct Conmed Aranza 01/22/2023 [id number] / [id number] / Conmed Aranza [id number] [place] Viabil 10mm 8.5fr 6cm 200cm Fully Covered Self Expand Pull - [id number] - [id number] Implanted:Qty : 1 on 10/23/2019 by Dandre Chavez MD at [facility] Explanted:Qty : 1 on 10/25/2019 by Dandre Chavez MD N/A: Bile Duct Conmed Arnaza 06/09/2022 [id number] / [id number] / [employer] [id number] Shields Flexi-Stent 5fr 9cm Small Pigtail Flexible .035in Stent - [id number] Implanted:Qty : 1 on 10/23/2019 by Dandre Chavez MD at [facility] Explanted:Qty : 1 on 10/25/2019 by Dandre Chavez MD N/A: Pancreas [employer] 04/26/2024 [id number] / / [id number] Procedures Procedure Name Priority Date/Time Associated Diagnosis Comments COLONOSCOPY REPORT 10/22/2014 SERUM HEPATITIS PANEL Routine 04/26/2012 12:36 PM CONE FORMER from Last 3 Months or Most Recently Relevant to Health Maintenance Results * COLONOSCOPY REPORT (10/22/2014) Anatomical Region Laterality Modality Other Narrative 10/22/2014 Ordered by an unspecified provider. us Historical Provider MD DAVIS PROCEDURE ORDERABLES F inal Result * Serum Hepatitis panel (04/26/2012 12:36 PM CONE FORMER) HBV surface ag NONREAC NONREAC HISTO RICAL [...] THIS TEST. Serum 04/26/2012 12:3 6 PM CONE FORMER Yamilka Oropeza MD LAB BLOOD ORDERABLES Final Result HISTORICAL RESULTS from Last 3 Months or Most Recently Relevant to Health Maintenance Insurance [facility] CHOICE PLUS [facility] CHOICE PLUS [place] [id number] Advance Directives For more information, please contact: [phone] * Full Code (Latest Code Status on [...] 7:26 PM 12/17/2020 9:04 PM Care Teams Installer Inspector Final Relationship Specialty Start Date End Date Norm Carrillo MD [address] [address] PCP - General Internal Medicine 01/06/22 Dandre Chavez MD [address] [facility] [address] [place] [address] Consulting Physician Gastroenterology 10/25/19 Danielito Irving MD [address] [facility] [address] [place] [address] Surgeon General Surgery 07/07/21
--- OUTSIDE RECORDS SUMMARY | 2024-10-03 16:16 | XMS_ITS | Clinical Summary ---
Author Organization [facility] Address [address] [place] [address] Care Team Providers Care Linter Operator Name Role Phone Angel Andrade MD Unavailable Emerson Watson MD Primary Care Provider Reji Ramirez MD Unavailable [phone] Allergies Active Allergy Reactions Criticality Noted Date Comments Jam Inhibitors Swelling,Other (see comment) 09/14/2023 Amoxicillin-Pot Clavulanate Swelling 09/14/2023 Azithromycin Hives 09/14/2023 Valsartan-Hydrochlorot hiazide Other (see comment) 04/23/2020 Severe hypokalemia Lisinopril Swelling High 08/17/2019 Tetracycline Hives,Unknown Medium 08/17/2019 Medications traZODone 100 MG tablet Take 2 tablets (200 mg total) by mouth nightly at bedtime. Active ALPRAZolam (XANAX) 1 MG tablet Take 1 tablet (1 mg total) by mouth 3 (three) times daily as needed for Anxiety. 2 Active vilazodone (VIIBRYD) 40 MG tablet Take 1 tablet (40 mg total) by mouth every morning. 5 Active ondansetron (ZOFRAN-ODT) 4 MG disintegrating tabletIndications:N ausea Take 1 tablet (4 mg total) by mouth every 8 (eight) hours as needed for Nausea. 20 tablet 5 Active amLODIPine (NORVASC) 5 MG tabletIndications:E ssential hypertension Take 1 tablet (5 mg total) by mouth daily. 90 tablet 1 5 Active spironolactone (ALDACTONE) 25 MG tabletIndications:E ssential hypertension,Hypera ldosteronism ([facility]) Take 1 tablet (25 mg total) by mouth daily. 90 tablet 1 5 Active pantoprazole EC (PROTONIX) 40 MG tabletIndications:G astroesophageal reflux disease without esophagitis Take 1 tablet (40 mg total) by mouth daily. 90 tablet 1 5 Active famotidine (PEPCID) 20 MG tabletIndications:G astroesophageal reflux disease without esophagitis Take 1 tablet (20 mg total) by mouth 2 (two) times daily as needed for Heartburn. 180 tablet 1 5 Active Cholecalciferol (VITAMIN D3) 50 MCG (2000 UT) CapIndications:Santa min D deficiency Take 1 caps. PO DAILY 90 capsule 1 5 Active SUMAtriptan Succinate (IMITREX) 6 MG/0.5ML Solution Auto-injectorIndica tions:Migraine with aura and without status migrainosus, not intractable Inject 0.5 mLs (6 mg total) into the skin every hour as needed. Maximum of 2 doses per day. 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 Vitamin D deficiency 02/15/2023 Prediabetes 02/13/2023 Nausea and vomiting 09/30/2022 SBO (small bowel obstruction) ([facility]) 09/30/2022 Colitis 08/03/2022 Overview (08/03/2022): Added automatically from request for surgery [id number] Postoperative abdominal pain 08/03/2022 Overview (09/14/2023): Added automatically from request for surgery [id number] Skin lesion 08/03/2022 Overview (09/06/2022): Added automatically from request for surgery [id number] Stage 2 chronic kidney disease 03/23/2022 Post-operative state 07/27/2021 Epigastric pain 12/17/2020 Hepatic steatosis 12/17/2020 Elevated C-reactive protein 11/02/2020 Shortness of breath 10/12/2020 Sunburn, second degree 09/16/2020 Overview (09/14/2023): Last Assessment & Plan: Supportive care Concern for some mild dehydration, however due to lower extremity edema we will hold off on IV fluids Encourage p.o. intake of fluids Mixed hyperlipidemia 10/18/2019 Intractable abdominal pain 10/16/2019 Overview (09/14/2023): Added automatically from request for surgery [id number] Added automatically from request for surgery [id number] Gastritis and duodenitis 10/11/2019 Migraine without aura and wi thout status migrainosus, not intractable 07/14/2017 B12 deficiency anemia 12/24/2015 PN (peripheral neuropathy) 12/24/2015 Hyperaldosteronism (HHS/HCC) 06/29/2015 Overview (09/11/2019): Hyperaldosteronism GERD (gastroesophageal reflux disease) 5 Overview (09/14/2023): GERD Gastroesophageal reflux dise ase with esophagitis without hemorrhage 08/28/2014 Overview (09/14/2023): GERD Hypokalemia 08/25/2014 Overview (09/14/2023): Hypokalemia Migraine with aura and witho ut status migrainosus, not intractable 08/16/2012 Overview (09/14/2023): Migraines Fibromyalgia syndrome 09/23/2011 Insomnia, unspecified 09/23/2011 Acute stomach ulcer 06/07/2011 Overview (09/14/2023): Gastric ulcer OCD (obsessive compulsive disorder) 06/07/2011 MDD (major depressive disorder) 06/07/2011 Overview (09/11/2019): Depression Tiredness 06/01/2011 HERNANDEZ (generalized anxiety disorder) 09/02/2009 Overview (09/04/2019): Description: not under control Hypertension 09/02/2009 Overview (09/14/2023): Hypertension, benign Irritable bowel syndrome with diarrhea 3 Overview (09/14/2023): IBS (irritable bowel syndrome) Overweight (BMI 25.0-29.9) Resolved Problems Problem Noted Date Diagnosed Date Resolved Date Skin lesion 08/03/2022 08/16/2022 Overview (08/03/2022): Added automatically from request for surgery [id number] Chest pain 05/16/2022 02/03/2023 Encounter for health-related screening 10/12/2020 09/18/2023 Atypical chest pain 09/25/2019 08/17/19 Acute tonsillitis due to oth er specified organisms 04/07/2018 09/19/2019 Overview (09/11/2019): Last Assessment & Plan: Patient demonstrates acute exudate of tonsillitis. Patient was initially seen at [facility] urgent care. I spoke with the [...] should her symptoms continue to be present. Ankle swelling 07/31/2014 08/16/2022 Overview (09/11/2019): Ankle swelling Endometriosis 06/01/2011 03/06/2020 Overview (09/11/2019): Obesity (BMI 30.0-34.9) Encounters Date Type Department Care Team Description 07/26/2024 2:16 PM CDT - 07/26/2024 8:27 PM CDT Emergency [facility] Emergency [place] [address] Rikki Hopson DO Headache Discharge Disposition: Home or Self Care (Routine Discharge) 07/26/2024 Travel 07/19/[address] [place] [id number] Emerson Watson MD Medication Problem 07/18/2024 Results Follow-Up [address] [place] [id number] Emerson Watson MD CHLAMYDIA GC RNA 07/17/2024 Results Follow-Up [address] [place] [id number] Emerson Watson MD VAGINITIS SCREEN (VDS) 07/17/[address] [facility] Med/Surg [address] [place] [address] Renee Martin, RN Follow Up Call (Sent to [employer], left message w/ Call back number.) 07/16/2024 3:23 PM CDT - 07/16/2024 11:59 PM CDT Hospital Encounter [facility] Laboratory [address] [place] [address] Emerson Watson MD Discharge Disposition: Home or Self Care (Routine Discharge) 07/16/2024 Travel 07/16/[address] [place] [id number] Emerson Watson MD Lab Order 07/16/2024 Orders Only [facility] [address] [address] Emerson Watson MD 07/15/2024 7:32 PM CDT - 07/15/2024 11:59 PM CDT Hospital Encounter [facility] [address] [place] [address] Emerson Watson MD Discharge Disposition: Home or Self Care (Routine Discharge) 07/15/2024 1:40 PM CDT Office Visit [address] [place] [address] Emerson Watson MD Urinary Incontinence (Patient is presenting with lower back pain, burning with urinating. /Symptoms started over a week ago./Just hasn't got any better. /Pt was in the ER a couple of weeks ago and did have a urinalysis./Patient is concerned about possible STIs and wants a women provider to do a women exam on her. /) 07/15/2024 Travel 07/11/2024 Results Follow-Up [address] [place] [address] Emerson Watson MD CBC W/DIFF AUTOMATED, COMPREHENSIVE METABOLIC PANEL, LIPID PANEL, Additional followed-up results: 4 07/09/2024 11:51 AM CDT - 07/09/2024 11:59 PM CDT Hospital Encounter [facility] Laboratory [address] [place] [address] Emerson Watson MD Discharge Disposition: Home or Self Care (Routine Discharge) 07/09/2024 Travel 07/05/2024 2:40 PM CDT Office Visit [facility] [address] [address] Emerson Watson MD TCM (Pt is here for TCM from [facility]) 07/05/2024 Travel 07/05/[address] [place] [address] Emerson Watson MD TCM from Last 3 Months Immunizations Immunization Administration Dates Next Due Fluzone 6 Months+ Quad (0.5 mL Prefilled Syringe) 02/13/2023,03/06/2020 Influenza (Generic) 01/01/2024, 5,01/14/2014,2012,01/26/2012 Influenza Adult (Generic) 01/24/2022,,12/24/2015,2014 PFIZER COVID-19 (12+) MRNA, LNP-S, PF, MASHA-SUCROSE, 30 MCG/0.3 ML (COMIRNATY) 02/13/2023 Tdap (Generic) 04/26/2019,09/28/2018 Family History Medical History Relation Comments No Known Problems Daughter 1 No Known Problems Daughter 2 Anxiety Father Hypertension Father Heart Attack Maternal Grandfather Cancer Maternal Grandmother stomach ca Diabetes Maternal Grandmother Heart Attack Maternal Grandmother Anxiety Mother Hypertension Mother Cancer Paternal Grandfather ? Cancer Paternal Grandmother esophageal Heart Attack Paternal Uncle Anxiety Sister afib Sister No Known Problems Son 1 No Known Problems Son 2 No Known Problems Son 3 No Known Problems Son 4 Relation Status Comments Daughter 1 Alive Daughter 2 Alive Father Alive Maternal Grandfather Maternal Grandmother Mother Alive Paternal Grandfather Alive Paternal Grandmother Paternal Uncle Sister Alive Son 1 Alive Son 2 Alive Son 3 Alive Son 4 Alive Social History Tobacco Use Types Packs/Day Years Used Date Smoking Tobacco: Never Passive Smoke Exposure: Never Smokeless Tobacco: Never Tobacco Cessation:Counseling Given: Not Answered Alcohol Use Standard Drinks/Week Comments Yes 0 (1 standard drink = 0.6 oz pur e alcohol) socially [id number] Health Literacy Answer Date Recor ded How often do you need to hav e someone help you when you read instructions, pamphlets, or other written material from your doctor or pharmacy? Never 07/02/2024 [facility] Utilities Answer Date Recorded In the past 12 months has e [employer], [employer], oil, or water [employer] threatened to shut off services in your home? No 07/02/2024 Humiliation, Afraid, Rape, and Kick questionnair e Answer Date Recorded Within the last year, have y ou been afraid of your partner or ex-partner? No 07/02/2024 Within the last year, have y ou been humiliated or emotionally abused in other ways by your partner or ex-partner? No Within the last year, have y ou been kicked, hit, slapped, or otherwise physically hurt by your partner or ex-partner? No 07/02/2024 Within the last year, have y ou been raped or forced to have any kind of sexual activity by your partner or ex-partner? No 07/02/2024 Social Connection and Isolat ion Panel [NHANES] Answer Date Recorded In a typical week, how many times do you talk on the phone with family, friends, or neighbors? More than three times a week 05/16/2022 How often do you get togethe r with friends or relatives? More than three times a week 05/16/2022 How often do you attend chur or faith services? More than 4 times per year 05/16/2022 Do you belong to any clubs o r organizations such as gnosticist groups, unions, fraternal or athletic groups, or school groups? Yes 05/16/2022 How often do you attend meet ings of the clubs or organizations you belong to? More than 4 times per year 05/16/2022 Are you , , di vorced, , never , or living with a partner? 05/16/2022 AUDIT-C Answer Date Recorded Q1: How often do you have a drink containing alcohol? 4 or more times a week 07/02/2024 Q2: How many drinks containi ng alcohol do you have on a typical day when you are drinking? 3 or 4 Q3: How often do you have si x or more drinks on one occasion? Less than monthly 07/02/2024 Overall Financial Resource Strain (CARDIA) Answe r Date Recorded How hard is it for you to pa y for the very basics like food, housing, medical care, and heating? Not very hard 07/02/2024 PHQ-2 Answer Date Recorded Patient Health Questionnaire-2 Score 0 07/05/2024 [facility] - Occupational Stress [...] the money to buy more. Never true 07/03/19 25 Within the past 12 months, t he food you bought just didn't last and you didn't have money to get more. Never true 07/02/2024 PRAPARE - Transportation Answer Date Re corded In the past 12 months, has l ack of transportation kept you from medical appointments or from getting medications? No 10/2024 In the past 12 months, has l ack of transportation kept you from meetings, work, or from getting things needed for daily living? No 07/02/2024 Housing Stability Vital Sign Answer Gregory e [...] place to sleep or slept in a fci (including now)? No 06/27/2022 Housing Stability Vital Sign Answer Gregory e Recorded In the last 12 months, was t here a time when you were not able to pay the mortgage or rent on time? No 07/02/2024 In the past 12 months, how m any times have you moved where you were living? 0 07/02/2024 At any time in the past 12 m [facility], were you homeless or living in a fci (including now)? No 07/02/2024 Comments No Sex and Gender Information Value Date Recorded Sex Assigned at Female 04/10/2024 11:52 AM FORMULATION SCIENTIST Legal Sex Female 7:00 PM CDT Gender Identity Female 05/08/2024 9:04 PM FORMULATION SCIENTIST Sexual Orientation Straight 05/08/2024 9: 04 PM FORMULATION SCIENTIST Last Filed Vital Signs Vital Sign Reading Time Taken Comments Blood Pressure 133/76 07/26/2024 8:20 PM CDT Pulse 59 07/26/2024 8:20 PM CDT Temperature 36.4 C (97.6 F) 07/26/2024 1:52 PM CDT Respiratory Rate 16 07/26/2024 8:20 PM CDT Oxygen Saturation 94% 07/26/2024 8:20 PM CDT Inhaled Oxygen Concentration - - Weight 72.4 kg (159 lb 9.8 oz) 07/26/2024 1:52 P M CDT Height 162.6 cm (5' 4) 07/26/2024 1:52 PM CDT Body Mass Index 27.4 07/26/2024 1:52 PM CDT Plan of Treatment Upcoming Encounters Date Type Department Care Team (Late st Contact Info) Description 01/21/2025 2:20 PM CDT Office Visit [facility] [place] [address] Emerson Watson MD [address] [place] [address] Health Maintenance Due Date Last Done Comments Annual Physical 1972 Hepatitis C 11/05/1987 Hepatitis B Vaccines (1 of 3 - 19+ 3-dose series) 1988 Pneumococcal Vaccine: 50+ Years (1 of 1 - PCV) 11/05/2019 Zoster Vaccines (1 of 2) 11/05/2019 COVID-19 Vaccine (5 - season) 2023 02/13/2023, 04/01/2021, 05/15/2020, Additional history exists Colorectal Cancer Screening Colonoscopy (10 Years) 10/22/2024 10/22/2014 Mammogram Screening 06/28/2025 06/29/2023, 07/15/2020, 02/01/2016 DTaP, Tdap and Td Vaccines (3 - Td or Tdap) 04/26/2029 04/26/2019, 09/28/2018 PHQ-2 (Physician [place]) Completed 07/05/2024 Meningococcal B Vaccine Aged Out No l onger eligible based on patient's age to complete this topic Meningococcal Vaccine Aged Out No lizett zee eligible based on patient's age to complete this topic RSV Immunizations Under 20 Months Aged Out No longer eligible based on patient's age to complete this topic Goals Goal Patient Goal Type Associated Problems Recent Progress Patient-Stated? Author Patient will return to prior living situation and remain independent in ADLs upon discharge from hospital Lifestyle Isabel Herring RN Procedures Procedure Name Priority Date/Time Associated Diagnosis Comments CBC W/DIFF AUTOMATED STAT 07/26/2024 4:20 PM CDT COMPREHENSIVE METABOLIC PANEL STAT 07/26/2024 4:20 PM CDT CHLAMYDIA GC RNA Routine 07/16/2024 3:32 PM CDT Dysuria Vaginal irritation VAGINITIS SCREEN (VDS) Routine 07/15/2024 2:13 PM CDT Dysuria Vaginal irritation URINALYSIS AUTO DIP Routine 07/15/2024 1 :51 PM CDT Dysuria VITAMIN B-12 Routine 07/09/2024 11:53 AM CDT Encounter for vitamin deficiency screening Gastroesophageal reflux disease without esophagitis Anemia due to vitamin B12 deficiency, unspecified B12 deficiency type VITAMIN D, 25 OH Routine 07/09/2024 11:5 3 AM CDT Annual physical exam Overweight (BMI 25.0-29.9) Encounter for vitamin deficiency screening Gastroesophageal reflux disease without esophagitis TSH W/REFLEX Routine 07/09/2024 11:53 AM CDT Annual physical exam Overweight (BMI 25.0-29.9) Thyroid disorder screen Essential hypertension HEMOGLOBIN, GLYCOSYLATED Routine 07/09/2024 11:53 AM CDT Annual physical exam Overweight (BMI 25.0-29.9) Screening for diabetes mellitus (DM) LIPID PANEL Routine 07/09/2024 11:53 AM CDT Annual physical exam Overweight (BMI 25.0-29.9) Lipid screening Mixed hyperlipidemia COMPREHENSIVE METABOLIC PANEL Routine 07/09/2024 11:53 AM CDT Annual physical exam Overweight (BMI 25.0-29.9) Essential hypertension Hyperaldosteronism (HHS/HCC) Gastroesophageal reflux disease without esophagitis CBC W/DIFF AUTOMATED Routine 07/09/2024 11:53 AM CDT Annual physical exam Overweight (BMI 25.0-29.9) Essential hypertension Gastroesophageal reflux disease without esophagitis Anemia due to vitamin B12 deficiency, unspecified B12 deficiency type MAMMOGRAM GENERIC (SCAN ORDER) 06/29/2023 COLONOSCOPY GENERIC (SCAN ORDER) 10/22/2014 from Last 3 Months or Most Recently Relevant to Health Maintenance Results * (ABNORMAL) COMPREHENSIVE METABOLIC PANEL (07/26/2024 4:20 PM CDT) Only the most recent of2 resultswithin the time period is included. GLUCOSE 88 70 - 99 MG/DL 07/26/2024 4:57 PM CDT [facility] BUN 8 7 - 18 MG/DL 07/26/2024 4:57 PM CDT [facility] CREATININE S/P/B 0.79 0.55 - 1.02 MG/DL 07/26/2024 4:57 PM CDT [facility] SODIUM S/P/B 142 136 - 145 MMOL/L 07/26/2024 4:57 PM CDT [facility] POTASSIUM S/P/B 3.5 3.5 - 5.1 MMOL/L 07/26/2024 4:57 PM CDT [facility] CHLORIDE S/P/B 111 97 - 115 MMOL/L 07/26/2024 4:57 PM CDT [facility] CO2 23.4 21 - 32 MMOL/L 07/26/2024 4:57 PM CDT [facility] CALCIUM S/P/B 8.8 8.5 - 10.1 MG/DL 07/26/2024 4:57 PM CDT [facility] BILIRUBIN TOTAL S/P/B 0.5 0.2 - 1.2 MG/DL 07/26/2024 4:57 PM CDT [facility] Comment: THIS ASSAY IS NOT RECOMMENDED FOR PATIENTS UNDERGOING TREATMENT WITH ELTROMBOPAG DUE TO THE POTENTIAL FOR FALSELY ELEVATED RESULTS. TOTAL PROTEIN S/P/B 7.0 6.4 - 8.2 G/DL 07/26/2024 4:57 PM CDT [facility] ALBUMIN S/P/B 3.7 3.4 - 5.0 G/DL 07/26/2024 4:57 PM CDT [facility] AST 13(L) 15 - 37 U/L 07/26/2024 4:57 PM CDT [facility] ALT 20 14 - 55 U/L 07/26/2024 4:57 PM CDT [facility] ALKALINE PHOSPHATASE S/P/B 82 50 - 136 U/L 07/26/2024 4:57 PM CDT [facility] ANION GAP 7.6 2 - 10 MMOL/L 07/26/2024 4:57 PM CDT [facility] BUN CREATININE RATIO 10.1 6 - 26 07/26/2024 4:57 PM T [facility] A/G RATIO 1.1 1.0 - 2.0 RATIO 07/26/2024 4:57 PM T [facility] GFR ESTIMATE 89(L) >90 ML/MIN/1.7 3 M2 07/26/2024 4:57 PM CDT [facility] Comment: NOTE: eGFR is not calculated for patients <18 years of age or gender unknown. This is an estimated GFR calculation using the new CKD EPI creatinine equation without race and so does not require a correction factor for race. This estimated GFR should not be used for calculating drug doses. 07/26/2024 4:20 PM CDT us Rikki Hopson DO LABORATORY Final Result [facility] [address] [place] [address], [place] [phone] * (ABNORMAL) CBC W/DIFF AUTOMATED (07/26/2024 4:20 PM CDT) Only the most recent of2 resultswithin the time period is included. WBC 8.69 4.5 - 11.0 x10'3/uL 07/26/2024 4:37 PM CDT [facility] RBC 4.48 4.20 - 5.40 x10'6/uL 07/26/2024 4:37 PM CDT [facility] HGB 13.0 12.0 - 16.0 G/DL 07/26/2024 4:37 PM CDT [facility] HCT 40.3 38.0 - 48.0 % 07/26/2024 4:37 PM CDT [facility] MCV 90.0 81.0 - 99.0 FL 07/26/2024 4:37 PM CDT [facility] MCH 29.0 27.0 - 31.0 PG 07/26/2024 4:37 PM CDT [facility] MCHC 32.3 32.0 - 36.0 G/DL 07/26/2024 4:37 PM CDT [facility] RDW 12.8 11.5 - 14.5 % 07/26/2024 4:37 PM CDT [facility] PLT 281 130 - 400 x10'3/uL 07/26/2024 4:37 PM CDT [facility] MPV 8.9(L) 9.3 - 12.2 FL 07/26/2024 4:37 PM CDT [facility] DIFFERENTIAL TYPE AUTOMATED DIFFERENTIAL 07/26/2024 4:37 PM CDT [facility] NEUTROPHILS % 73.4 % 07/26/2024 4:37 PM CDT [facility] LYMPHOCYTES % 20.4 % 07/26/2024 4:37 PM CDT [facility] MONOCYTES % 4.8 % 07/26/2024 4:37 PM CDT [facility] EOSINOPHILS 0.6 % 07/26/2024 4:37 PM CDT [facility] BASOPHILS 0.6 % 07/26/2024 4:37 PM CDT [facility] IMMATURE GRANS % 0.2 % 07/27/19 4:37 PM CDT [facility] ABS. NEUTROPHILS 6.38 1.80 - 7.70 x10'3/uL 07/26/2024 4:37 PM CDT [facility] ABS. LYMPHOCYTES 1.77 1.00 - 4.80 x10'3/uL 07/26/2024 4:37 PM CDT [facility] ABS. MONOCYTES 0.42 0.24 - 0.86 x10'3/uL 07/26/2024 4:37 PM CDT [facility] ABS. EOSINOPHILS 0.05 0.04 - 0.36 x10'3/uL 07/26/2024 4:37 PM CDT [facility] ABS. BASOPHILS 0.05 0.01 - 0.08 x10'3/uL 07/26/2024 4:37 PM CDT [facility] ABS. IMMATURE GRANULOCYTES 0.02 0.00 - 0.49 x10'3/uL 07/26/2024 4:37 PM CDT [facility] 07/26/2024 4:20 PM CDT us Rikki Hopson DO LABORATORY Final Result [facility] [address] [place] [address], [place] [phone] * CHLAMYDIA GC RNA (07/16/2024 3:32 PM CDT) SPECIMEN SOURCE URINE 3:30 PM CDT [facility] CHLAMYDIA PCR NEGATIVE NEGATIVE 07/18/2024 11:43 AM CDT [facility] Comment:PERFORMED BY NUCLEIC ACID AMPLIFICATION N.GONORRHOEAE RNA TMA NEGATIVE NEGATIVE 07/18/2024 11:43 AM CDT [facility] Comment:PERFORMED BY NUCLEIC ACID AMPLIFICATION URINE SPECIMEN / Unknown 07/16/2024 3:32 PM CDT Emerson Watson MD MICROBIOLOGY - GENERAL ORDER KHANH Final Result [facility] [address] [place] [address], [place] [phone] [facility] [address] [place] [address], [place] [phone] * VAGINITIS SCREEN (VDS) (07/15/2024 2:13 PM CDT) SOURCE VAGINAL SPECIMEN 07/16/2024 3:52 PM CDT [facility] TRICHOMONAS NEGATIVE 07/16/2024 3:52 PM CDT [facility] Comment:NOT DETECTED BY DNA PROBE GARDNERELLA VAGINALIS POSITIVE 07/16/2024 3:52 PM CDT [facility] Comment:DETECTED BY DNA PROB E PHYLLIS SPECIES NEGATIVE 3:52 PM CDT [facility] Comment:NOT DETECTED BY DNA PROBE VAGINAL STRUCTURE / Unknown 07/15/2024 2:13 PM CDT us Emerson Watson MD MICROBIOLOGY - GENERAL ORDER KHANH Final Result [facility] [address] [place] [address], [place] [phone] [id number] * URINALYSIS AUTO DIP (07/15/2024 1:51 PM CDT) COLOR (U) YELLOW YELLOW [facility] [address]), [place] [employer] CLEAR CLEAR [facility] (201), [place] GLUCOSE (U) NEGATIVE NEGATIVE MG/DL [facility] (201), [place] BILIRUBIN (U) NEGATIVE NEGATIVE [facility] (201), [place] KETONES MG/DL (U) NEGATIVE NEGATIVE MG/DL [facility] (201), [place] SPECIFIC GRAVITY (U) 1.010 1.001 - 1.035 [facility] (201), [place] BLOOD (U) NEGATIVE NEGATIVE [facility] [address]), [place] U PH 6.5 5.0 - 9.[address] [facility] [address]), [place] PROTEIN (U) NEGATIVE NEGATIVE mg/dL [facility] DR [address]ie201), [place] UROBILINOGEN 0.2 0.2 - 1.0 EU/dL = mg/dL [facility] (201), [place] NITRITES NEGATIVE NEGATIVE MG/DL [facility] (201), [place] LEUKOCYTES (U) NEGATIVE NEGATIVE [facility] [address]ie201), [place] URINE SPECIMEN OBTAINED BY CLEAN CATCH PROCEDURE / Unknown 07/15/2024 1:51 PM CDT Emerson Watson MD URINE ORDERABLES Final Resul t [facility] (201), [place] [address] [place] [address], * TSH W/REFLEX (07/09/2024 11:53 AM CDT) TSH 1.472 0.358 - 3.74 uIU/ML 07/09/2024 1:07 PM CDT [facility] Comment: HIGH DOSES OF BIOTIN MAY INTERFERE WITH THIS TEST RESULT. CORRELATION TO CLINICAL HISTORY AND PRESENTATION RECOMMENDED. FREE T4 NOT INDICATED 07/09/2024 11:5 3 AM CDT us Emerson Watson MD LABORATORY Final Result [facility] [address] [place] [address], [place] [phone] * HEMOGLOBIN, GLYCOSYLATED (07/09/2024 11:53 AM CDT) HGB A1C 5.5 <5.7 % 07/09/2024 9:15 PM CDT [facility] Comment: ADA GUIDELINES 2010 5.7 TO 6.4% INCREASED RISK OF DIABETES > OR = 6.5% CONSISTENT WITH DIABETES ESTIMATED AVG GLUCOSE 111 mg/dL 07/09/2024 9:15 PM CDT [facility] 07/09/2024 11:5 3 AM CDT us Emerson Watson MD LABORATORY Final Result Performing Organization Address City/[facility]/ZIP Co de Phone Number [facility] [address] [place] [address], [place] [phone] * VITAMIN B-12 (07/09/2024 11:53 AM CDT) VITAMIN B12 S/P/B 457 193 - 986 PG/ML 07/09/2024 1:07 PM CDT [facility] 07/09/2024 11:5 3 AM CDT us Emerson Watson MD LABORATORY Final Result [facility] [address] [place] [address], * LIPID PANEL (07/09/2024 11:53 AM CDT) CHOLESTEROL 146 <200 MG/DL 07/09/2024 1:07 PM CDT [facility] TRIGLYCERIDES 88 <150 MG/DL 07/09/2024 1:07 PM T [facility] HDL 62 >40.0 MG/DL 07/09/2024 1:07 PM T [facility] LDL (CALCULATED) 66 <100 MG/DL 07/10/19 1:07 PM CDT [facility] NON HDL CHOLESTEROL 84 <130 MG/DL 07/09 1:07 PM CDT [facility] Comment: NOTE: WHEN THE TRIGLYCERIDES ARE >200 mg/dL, NON HDL C IS A SECONDARY TARGET OF THERAPY, WITH A GOAL 30 mg/dL HIGHER THAN THE IDENTIFIED LDL C GOAL. CHOL/HDL RATIO 2.4 0.0 - 4.5 07/09/2024 1:07 PM T [facility] VLDL CALCULATION 18 5 - 55 MG/DL 07/09/2024 1:07 PM T [facility] LIPID INTERPRETATION 07/09/2024 1:07 PM T [facility] Comment: NIH CONCENSUS REPORT RECOMMENDATIONS: ADULT CHILD LOW RISK: CHOLESTEROL <200 <170 TRIGLYCERIDE <150 --- HDL >=60 --- LDL <100 <110 BORDERLINE: CHOLESTEROL 200-239 170-199 TRIGLYCERIDE 150-199 --- HDL 40-59 --- LDL 100-159 110-129 HIGH RISK: CHOLESTEROL >=240 >=200 TRIGLYCERIDE >=200 --- HDL <40 --- LDL >=160 >=130 07/09/2024 11:5 3 AM CDT Emerson Watson MD LABORATORY Final Result [facility] [address] [place] [address], [place] [phone] * VITAMIN D, 25 OH (07/09/2024 11:53 AM CDT) VITAMIN D 25 HYDROXY S/P/B 40 30 - 100 NG/ML 07/09/2024 1:09 PM CDT [facility] Comment: INTERPRETATION DEFICIENT <20 INSUFFICIENT 20-29 SUFFICIENT 30-100 07/09/2024 11:5 3 AM CDT Emerson Watson MD LABORATORY Final Result [facility] [address] [place] [address], [place] [phone] * MAMMOGRAM GENERIC (SCAN ORDER) (06/29/2023) Anatomical Region Laterality Modality Other 06/29/2023 [facility] Scanned SCANNING Final Resu lt * COLONOSCOPY GENERIC (10/22/2014) 10/22/2014 Narrative 10/22/2014 Ordered by an unspecified provider. us Documents Scanned SCANNING Final Result from Last 3 Months or Most Recently Relevant to Health Maintenance Insurance [employer] Advance Directives * Full Code (Latest Code Status on File) Date Activated Date Inactivated Comments 07/02/2024 10:36 AM 07/03/2024 12:19 PM * Full Code Date Activated Date Inactivated Comments 06/27/2022 11:54 PM 06/28/2022 6:50 PM * Full Code Date Activated Date Inactivated Comments 05/17/2022 4:01 AM 05/17/2022 3:27 PM * Full Code Date Activated Date Inactivated Comments 09/25/2019 8:34 PM 09/26/2019 8:32 PM Care Teams Linter Operator Relationship Specialty Start Date End Date Emerson Watson MD [address] [place] [address] [place] [address] PCP - General FAMILY PRACTICE 08/11/22 Angel Andrade MD [address] [facility] [address] [address] Referring Physician GASTROENTEROLOGY 12/17/20 [place] [address] [place] [address] SURGERY 03/10/23
--- OUTSIDE RECORDS SUMMARY | 2024-10-03 16:16 | XMS_ITS | Encounter Summary ---
Author Organization [facility] Address [facility] [place] [address] Care Team Providers Care Yield Analyst Name Role Phone Delia Ozuna MD Primary Care Provider Un available None, Provider Primary Care Provider Unavaila Mitali Branch PA-C Primary Care Provider + [phone] Angel Andrade MD Unavailable [phone] Simon Hughes MD Primary Care Provider [phone] Pedro Phan MD Primary Care Provider + Simon Hughes MD Primary Care Provider [phone] Emerson Watson MD Primary Care Provider + [phone] Emerson Watson MD Primary Care Provider [phone] Emerson Watson MD Primary Care Provider + [phone] Emerson Watson MD Primary Care Provider [phone] Reji Ramirez MD Unavailable [phone] Encounter Details Date Type Department Care Team (Late st Contact Info) Description 09/26/2019 Prep for Procedure [facility] [address] [place] [address] Adeola Ng MD [address] [place] [address] Social History Tobacco Use Types Packs/Day Years Used Date Smoking Tobacco: Never Smokeless Tobacco: Never Alcohol Use Standard Drinks/Week Comments Yes 0 (1 standard drink = 0.6 oz pur e alcohol) socially Comments No Sex and Gender Information Value Date Recorded Sex Assigned at Female 04/10/2024 11:52 AM NURSE ANESTHESIA PROGRAM DIRECTOR Legal Sex Female 7:00 PM CDT Gender Identity Female 05/08/2024 9:04 PM NURSE ANESTHESIA PROGRAM DIRECTOR Sexual Orientation Straight 05/08/2024 9: 04 PM NURSE ANESTHESIA PROGRAM DIRECTOR COVID-19 Exposure Response Date Recorded In the last month, have you been in contact with someone who was confirmed or suspected to have Coronavirus / COVID-19? No / Unsure 09/28/2019 1:41 PM CDT documented as of this encounter Functional Status [...] PM CDT Arcelia Ahn RN Active documented in this encounter Plan of Treatment Upcoming Encounters Date Type Department Care Team (Late st Contact Info) Description 01/21/2025 2:20 PM CDT Office Visit [facility] [address] [place] [address] Emerson Watson MD [address] [place] [address] [place] [address] documented as of this encounter Results * PRE-SURGICAL/PRE-PROCEDURE CORONAVIRUS (COVID 19) (09/28/2019 1:40 PM CDT) CORONAVIRUS SARS COV 2 PCR (RESP) NOT DETECTED NOT DETECTED 09/29/2019 8:59 PM CDT [facility] Comment: A Not Detected (negative) test result for this test means that SARS- CoV-2 RNA was not present in the specimen above the limit of detection. A negative result does not rule out the possibility of COVID-19 and should not be used as the sole basis for treatment or patient management decisions. If COVID-19 is still suspected, based on exposure history together with other clinical findings, re-testing should be considered in consultation with public health authorities. Laboratory test results should always be considered in the context of clinical observations and epidemiological data in making a final diagnosis and patient management decisions. Please review the Fact Sheets and FDA authorized labeling available for health care providers and patients using the following websites: https://www.[employer]Duck.com/home/Covid-19/HCP/Quest[employer]/fact- sheet.html https://[email or web address]/home/Covid-19/Patients/ Quest[employer]/fact-sheet.html This test has been authorized by the FDA under an Emergency Use Authorization (EUA) for use by authorized laboratories. Due to the current public health emergency, [facility] is receiving a high volume of samples from a wide variety of swabs and media for COVID-19 testing. In order to serve patients during this public health crisis, samples from appropriate clinical sources are being tested. Negative test results derived from specimens received in non-commercially manufactured viral collection and transport media, or in media and sample collection kits not yet authorized by FDA for COVID-19 testing should be cautiously evaluated and the patient potentially subjected to extra precautions such as additional clinical monitoring, including collection of an additional specimen. Methodology: Nucleic Acid Amplification Test (NAAT) includes PCR or TMA Additional information about COVID-19 can be found at the [facility] website: www.My[employer]du.[email or web address]/Covid19. Test performed at [facility] [place] [address] [id number] Director: SKINNY MOLINA DO,MPH NASOPHARYNGEAL SWAB / Unknown 09/28/2019 1:40 PM CDT us Adeola Ng MD MICROBIOLOGY - GENERAL ORDER KHANH Final Result [facility] [address] [facility] [place] [address] documented in this encounter Visit Diagnoses Diagnosis Pre-op testing- Primary Preoperative examination, unspecified documented in this encounter Additional Health Concerns Infection Onset Date Last Indicated Resolved Time COVID-19 Rule Out 09/28/2019 09/28/2019 09/29/2019 8:59 PM CDT COVID-19 Rule Out 10/02/2019 10/02/2019 10/04/2019 2:08 AM CDT COVID-19 Rule Out 11/22/2019 11/22/2019 11/24/2019 11:10 AM CDT COVID-19 Rule Out 12/12/2019 12/12/2019 12/15/2019 2:30 AM CDT COVID-19 Rule Out 02/24/2020 02/24/2020 02/26/2020 4:47 PM NURSE ANESTHESIA PROGRAM DIRECTOR COVID-19 Rule Out 04/23/2020 04/23/2020 04/24/2020 5:21 PM NURSE ANESTHESIA PROGRAM DIRECTOR COVID-19 Rule Out 09/24/2020 09/24/2020 09/24/2020 9:55 PM CDT COVID-19 Rule Out 02/21/2021 02/21/2021 02/21/2021 5:22 PM NURSE ANESTHESIA PROGRAM DIRECTOR COVID-19 Rule Out 03/13/2021 03/13/2021 03/13/2021 3:13 AM NURSE ANESTHESIA PROGRAM DIRECTOR COVID-19 Rule Out 04/04/2021 04/04/2021 04/04/2021 2:40 PM NURSE ANESTHESIA PROGRAM DIRECTOR COVID-19 Rule Out 04/04/2021 04/04/2021 04/06/2021 2:04 AM NURSE ANESTHESIA PROGRAM DIRECTOR COVID-19 Rule Out 12/11/2021 12/11/2021 12/11/2021 8:30 PM CDT COVID-19 Rule Out 07/26/2022 07/26/2022 07/26/2022 4:24 PM CDT COVID-19 Rule Out 03/10/2023 03/10/2023 03/10/2023 2:55 PM NURSE ANESTHESIA PROGRAM DIRECTOR COVID-19 Rule Out 03/18/2023 03/18/2023 03/18/2023 2:42 PM NURSE ANESTHESIA PROGRAM DIRECTOR RSV 03/18/2023 03/18/2023 03/28/2023 12:3 2 AM NURSE ANESTHESIA PROGRAM DIRECTOR Influenza - Seasonal 03/18/2023 03/18/2023 024 12:32 AM NURSE ANESTHESIA PROGRAM DIRECTOR COVID-19 Rule Out 11/24/2023 11/24/2023 11/24/2023 10:13 AM CDT COVID-19 Rule Out 03/22/2024 03/22/2024 03/22/2024 4:59 PM NURSE ANESTHESIA PROGRAM DIRECTOR COVID-19 Rule Out 04/30/2024 04/30/2024 04/30/2024 1:33 PM NURSE ANESTHESIA PROGRAM DIRECTOR documented as of this encounter Care Teams Yield Analyst Relationship Specialty Start Date End Date Delia Ozuna MD PCP - General INTERNAL MEDICINE 09/16/19 03/25/20 None, MD Verito PCP - General 03/27/20 04/22/20 Mitali Mcdowell PA-C [address] [facility] [address] [place] [address] PCP - General PHYSICIAN ADULT CROSSING GUARD 04/23/20 02/07/21 Simon Hughes MD [address] [place] [address] PCP - General INTERNAL MEDICINE 02/08/21 08/03/21 Pedro Phan MD [address] [place] [id number] PCP - General FAMILY PRACTICE 08/04/21 09/09/21 Simon Hughes MD [address] [place] [address] PCP - General INTERNAL MEDICINE 09/10/21 06/15/22 Emerson Watson MD [address] [place] [address] PCP - General FAMILY PRACTICE 06/16/22 08/01/22 Emerson Watson MD [address] [place] [address] PCP - General FAMILY PRACTICE 08/03/22 08/07/22 Emerson Watson MD [address] [place] [address] PCP - General FAMILY PRACTICE 08/02/22 08/02/22 Emerson Watson MD [address] [place] [address] PCP - General FAMILY PRACTICE 08/11/22 Angel Andrade MD [address] [facility] [address], [place] [address] Referring Physician GASTROENTEROLOGY 12/17/20 [place] [address] [place] [address] SURGERY 03/10/23 documented as of this encounter
--- OUTSIDE RECORDS SUMMARY | 2024-10-03 16:16 | XMS_ITS | Encounter Summary ---
Author Organization [employer] Address 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 Gender Identity Not on file Sexual Orientation Not on file documented as of this encounter Plan of Treatment Not on file documented as of this encounter Procedures Procedure Name Priority Date/Time Associated Diagnosis Comments CBC WITH DIFFERENTIAL Routine 10/03/2006 8:08 AM CDT CBC WITH DIFFERENTIAL Routine 10/03/2006 8:08 AM CDT CBC WITH DIFFERENTIAL Routine 10/02/2006 12:07 PM CDT CBC WITH DIFFERENTIAL Routine 10/02/2006 12:07 PM CDT DIC PROFILE Routine 10/02/2006 9:15 AM CDT CBC WITH DIFFERENTIAL Routine 10/02/2006 8:00 AM CDT CBC WITH DIFFERENTIAL Routine 10/02/2006 8:00 AM CDT CBC WITH DIFFERENTIAL Routine 10/02/2006 3:55 AM CDT CBC WITH DIFFERENTIAL Routine 10/02/2006 3:55 AM CDT ED HOLD Routine 10/01/2006 9:12 PM CDT CBC WITH DIFFERENTIAL Routine 10/01/2006 9:12 PM CDT CBC WITH DIFFERENTIAL Routine 10/01/2006 9:12 PM CDT C-REACTIVE PROTEIN Routine 10/01/2006 9: 12 PM CDT COMPREHENSIVE METABOLIC PANEL Routine 10/01/2006 9:12 PM CDT documented in this encounter Results * (ABNORMAL) CBC WITH DIFFERENTIAL (10/03/2006 8:08 AM CDT) NEUTROPHILS 73(H) 45 - 70 % INTERFAC E SYSTEM LYMPHOCYTES 15(L) 16 - 45 % INTERFAC E SYSTEM MONOCYTES 10 3 - 13 % INTERFACE SYSTEM EOSINOPHILS 3 0 - 7 % INTERFAC E SYSTEM BASOPHILS 0 0 - 2 % INTERFACE SYSTEM NEUTROPHIL ABSOLUTE 8.00(H) 1.90 - 7.00 K/uL INTERFACE SYSTEM LYMPHOCYTE ABSOLUTE 1.61 0.70 - 4.50 K/uL INTERFACE SYSTEM MONOCYTE ABSOLUTE 1.06 0.10 - 1.30 K/uL INTERFACE SYSTEM EOSINOPHIL ABSOLUTE 0.28 0.00 - 0.70 K/uL INTERFACE SYSTEM BASOPHILS ABSOLUTE 0.03 0.00 - 0.20 K/uL INTERFACE SYSTEM 10/03/2006 8:08 AM CDT Narrative INTERFACE SYSTEM - 10/03/2006 8:26 AM CDT Ordered by an unspecified provider. us Historical Provider HEMATOLOGY ORDERABLES Edited INTERFACE SYSTEM Refer to clinic/hospital department * (ABNORMAL) CBC WITH DIFFERENTIAL (10/03/2006 8:08 AM CDT) Pathologist [facility] WBC 11.0(H) 4.0 - 9.8 K/uL INTERFACE SYSTEM RBC 3.22(L) 3.90 - 4.90 M/uL INTERFACE SYSTEM HEMOGLOBIN 9.2(L) 11.8 - 14.8 g/dL INTERFACE SYSTEM HEMATOCRIT 28.4(L) 35.5 - 44.0 % INTERFACE SYSTEM MCV 88.2 82.0 - 99.0 fL INTERFACE SYSTEM MCH 28.6 27.2 - 32.6 pg INTERFACE SYSTEM MCHC 32.4 31.5 - 35.5 % INTERFACE SYSTEM RDW 14.5 11.5 - 14.5 % INTERFACE SYSTEM RDW-STDEV 45.6 37.1 - 48.7 fL INTERFACE SYSTEM PLATELETS 324 140 - 350 K/uL INTERFACE SYSTEM MPV 8.7(L) 9.3 - 12.4 fL INTERFACE SYSTEM 10/03/2006 8:08 AM CDT Narrative INTERFACE SYSTEM - 10/03/2006 8:26 AM CDT Ordered by an unspecified provider. Historical Provider HEMATOLOGY ORDERABLES Edited Performing Organization Address City/State/[facility] Co de Phone Number INTERFACE SYSTEM Refer to clinic/hospital department * (ABNORMAL) CBC WITH DIFFERENTIAL (10/02/2006 12:07 PM CDT) Pathologist [facility] NEUTROPHILS 83(H) 45 - 70 % INTERFAC E SYSTEM LYMPHOCYTES 10(L) 16 - 45 % INTERFAC E SYSTEM MONOCYTES 6 3 - 13 % INTERFACE SYSTEM EOSINOPHILS 1 0 - 7 % INTERFAC E SYSTEM BASOPHILS 0 0 - 2 % INTERFACE SYSTEM NEUTROPHIL ABSOLUTE 10.93(H) 1.90 - 7.00 K/uL INTERFACE SYSTEM LYMPHOCYTE ABSOLUTE 1.27 0.70 - 4.50 K/uL INTERFACE SYSTEM MONOCYTE ABSOLUTE 0.80 0.10 - 1.30 K/uL INTERFACE SYSTEM EOSINOPHIL ABSOLUTE 0.10 0.00 - 0.70 K/uL INTERFACE SYSTEM BASOPHILS ABSOLUTE 0.02 0.00 - 0.20 K/uL INTERFACE SYSTEM 10/02/2006 12:0 7 PM CDT Michel Irby MD HEMATOLOGY ORDERABLES Edited INTERFACE SYSTEM Refer to clinic/hospital department * (ABNORMAL) CBC WITH DIFFERENTIAL (10/02/2006 12:07 PM CDT) WBC 13.1(H) 4.0 - 9.8 K/uL INTERFACE SYSTEM RBC 3.37(L) 3.90 - 4.90 M/uL INTERFACE SYSTEM HEMOGLOBIN 9.5(L) 11.8 - 14.8 g/dL INTERFACE SYSTEM HEMATOCRIT 29.5(L) 35.5 - 44.0 % INTERFACE SYSTEM MCV 87.5 82.0 - 99.0 fL INTERFACE SYSTEM MCH 28.2 27.2 - 32.6 pg INTERFACE SYSTEM MCHC 32.2 31.5 - 35.5 % INTERFACE SYSTEM RDW 14.1 11.5 - 14.5 % INTERFACE SYSTEM RDW-STDEV 44.0 37.1 - 48.7 fL INTERFACE SYSTEM PLATELETS 354(H) 140 - 350 K/uL INTERFACE SYSTEM MPV 8.9(L) 9.3 - 12.4 fL INTERFACE SYSTEM 10/02/2006 12:0 7 PM CDT us Michel Irby MD HEMATOLOGY ORDERABLES Edited Performing Organization Address [facility] Phone Number INTERFACE SYSTEM Refer to clinic/hospital department * (ABNORMAL) DIC PROFILE (10/02/2006 9:15 AM CDT) FIBRINOGEN 562(H) 211 - 402 mg/dL INTERFACE SYSTEM PROTIME 13.2 12.7 - 15.1 Seconds INTERFACE SYSTEM INR 1.0 0.9 - 1.1 INTERFACE SYSTEM Comment: INR Therapeutic Range: Adult: 2.0 - 3.0 for pulmonary embolism or prophylaxis against venous thrombosis or systemic embolization. 2.0 - 3.0 for patients with tissue heart valves. 2.5 - 3.5 for patients with mechanical heart valves or post AL. Pediatric (12 years and under): 1.5 - 3.0 Although the target range in children is not well established , INR values of 1.5 - 3.0 are recommended for most patients. Higher values have been used in children with prosthetic cardiac valves and hereditary clotting disorders. (<3 days) therapeutic ranges have not been established. PTT 27.0 24.4 - 36.4 Seconds INTERFACE SYSTEM Comment: PTT Therapeutic Range: Heparin Level PTT (seconds) <0.10 units/mL <53 0.10 - 0.30 units/mL 53 - 67 0.30 - 0.70 units/mL* 67 - 95* 0.70 - 1.00 units/mL 95 - 116 *corresponds to therapeutic range for unfractionated heparin D-DIMER QUANT 2.12(H) <=0.42 ug/mL FEU INTERFACE SYSTEM Comment: DVT Screen reference range <0.45 ug/mL FEU D. Dimer Interpretation: The reference range is not clearly established in uncomplicated pregnanc ies. Values above the upper limit of the reference range are common from the 31st to 40th week of . High negative predictive values for DVT have been reported with the current methodology, as part of a comprehensive medical examination, including risk stratification. 10/02/2006 9:15 AM CDT Narrative INTERFACE SYSTEM - 10/02/2006 9:54 AM CDT Ordered by an unspecified provider. [facility] Provider HEMATOLOGY ORDERABLES Edited Performing Organization Address City/[facility] de Phone Number INTERFACE SYSTEM Refer to clinic/hospital department * (ABNORMAL) CBC WITH DIFFERENTIAL (10/02/2006 8:00 AM CDT) NEUTROPHILS 75(H) 45 - 70 % INTERFAC E SYSTEM LYMPHOCYTES 15(L) 16 - 45 % INTERFAC E SYSTEM MONOCYTES 8 3 - 13 % INTERFACE SYSTEM EOSINOPHILS 2 0 - 7 % INTERFAC E SYSTEM BASOPHILS 0 0 - 2 % INTERFACE SYSTEM NEUTROPHIL ABSOLUTE 8.38(H) 1.90 - 7.00 K/uL INTERFACE SYSTEM LYMPHOCYTE ABSOLUTE 1.66 0.70 - 4.50 K/uL INTERFACE SYSTEM MONOCYTE ABSOLUTE 0.86 0.10 - 1.30 K/uL INTERFACE SYSTEM EOSINOPHIL ABSOLUTE 0.27 0.00 - 0.70 K/uL INTERFACE SYSTEM BASOPHILS ABSOLUTE 0.02 0.00 - 0.20 K/uL INTERFACE SYSTEM 10/02/2006 8:00 AM CDT Faustino Hood MD HEMATOLOGY ORDERABLES Edited Performing Organization Address [facility] Co de Phone Number INTERFACE SYSTEM Refer to clinic/hospital department * (ABNORMAL) CBC WITH DIFFERENTIAL (10/02/2006 8:00 AM CDT) WBC 11.2(H) 4.0 - 9.8 K/uL INTERFACE SYSTEM RBC 3.18(L) 3.90 - 4.90 M/uL INTERFACE SYSTEM HEMOGLOBIN 9.0(L) 11.8 - 14.8 g/dL INTERFACE SYSTEM HEMATOCRIT 27.8(L) 35.5 - 44.0 % INTERFACE SYSTEM MCV 87.4 82.0 - 99.0 fL INTERFACE SYSTEM MCH 28.3 27.2 - 32.6 pg INTERFACE SYSTEM MCHC 32.4 31.5 - 35.5 % INTERFACE SYSTEM RDW 14.0 11.5 - 14.5 % INTERFACE SYSTEM RDW-STDEV 43.8 37.1 - 48.7 fL INTERFACE SYSTEM PLATELETS 329 140 - 350 K/uL INTERFACE SYSTEM MPV 8.7(L) 9.3 - 12.4 fL INTERFACE SYSTEM 10/02/2006 8:00 AM CDT Faustino Hood MD HEMATOLOGY ORDERABLES Edited INTERFACE SYSTEM Refer to clinic/hospital department * (ABNORMAL) CBC WITH DIFFERENTIAL (10/02/2006 3:55 AM CDT) NEUTROPHILS 73(H) 45 - 70 % INTERFAC E SYSTEM LYMPHOCYTES 17 16 - 45 % INTERFAC E SYSTEM MONOCYTES 7 3 - 13 % INTERFACE SYSTEM EOSINOPHILS 2 0 - 7 % INTERFAC E SYSTEM BASOPHILS 0 0 - 2 % INTERFACE SYSTEM NEUTROPHIL ABSOLUTE 8.25(H) 1.90 - 7.00 K/uL INTERFACE SYSTEM LYMPHOCYTE ABSOLUTE 1.91 0.70 - 4.50 K/uL INTERFACE SYSTEM MONOCYTE ABSOLUTE 0.79 0.10 - 1.30 K/uL INTERFACE SYSTEM EOSINOPHIL ABSOLUTE 0.26 0.00 - 0.70 K/uL INTERFACE SYSTEM BASOPHILS ABSOLUTE 0.03 0.00 - 0.20 K/uL INTERFACE SYSTEM 10/02/2006 3:55 AM CDT Narrative INTERFACE SYSTEM - 10/02/2006 4:04 AM CDT Ordered by an unspecified provider. us Historical Provider HEMATOLOGY ORDERABLES Edited Performing Organization Address City/[facility] de Phone Number INTERFACE SYSTEM Refer to clinic/hospital department * (ABNORMAL) CBC WITH DIFFERENTIAL (10/02/2006 3:55 AM CDT) WBC 11.2(H) 4.0 - 9.8 K/uL INTERFACE SYSTEM RBC 3.13(L) 3.90 - 4.90 M/uL INTERFACE SYSTEM HEMOGLOBIN 9.0(L) 11.8 - 14.8 g/dL INTERFACE SYSTEM HEMATOCRIT 27.3(L) 35.5 - 44.0 % INTERFACE SYSTEM MCV 87.2 82.0 - 99.0 fL INTERFACE SYSTEM MCH 28.8 27.2 - 32.6 pg INTERFACE SYSTEM MCHC 33.0 31.5 - 35.5 % INTERFACE SYSTEM RDW 14.0 11.5 - 14.5 % INTERFACE SYSTEM RDW-STDEV 43.7 37.1 - 48.7 fL INTERFACE SYSTEM PLATELETS 312 140 - 350 K/uL INTERFACE SYSTEM MPV 8.6(L) 9.3 - 12.4 fL INTERFACE SYSTEM 10/02/2006 3:55 AM CDT Narrative INTERFACE SYSTEM - 10/02/2006 4:04 AM CDT Ordered by an unspecified provider. Historical Provider HEMATOLOGY ORDERABLES Edited Performing Organization Address [facility] Phone Number INTERFACE SYSTEM Refer to clinic/hospital department * (ABNORMAL) CBC WITH DIFFERENTIAL (10/01/2006 9:12 PM CDT) NEUTROPHILS 74(H) 45 - 70 % INTERFAC E SYSTEM LYMPHOCYTES 17 16 - 45 % INTERFAC E SYSTEM MONOCYTES 7 3 - 13 % INTERFACE SYSTEM EOSINOPHILS 3 0 - 7 % INTERFAC E SYSTEM BASOPHILS 0 0 - 2 % INTERFACE SYSTEM NEUTROPHIL ABSOLUTE 8.74(H) 1.90 - 7.00 K/uL INTERFACE SYSTEM LYMPHOCYTE ABSOLUTE 1.98 0.70 - 4.50 K/uL INTERFACE SYSTEM MONOCYTE ABSOLUTE 0.81 0.10 - 1.30 K/uL INTERFACE SYSTEM EOSINOPHIL ABSOLUTE 0.32 0.00 - 0.70 K/uL INTERFACE SYSTEM BASOPHILS ABSOLUTE 0.02 0.00 - 0.20 K/uL INTERFACE SYSTEM 10/01/2006 9:12 PM CDT Norris Perdomo MD HEMATOLOGY ORDERABLES Edited Performing Organization Address City/[facility] Phone Number INTERFACE SYSTEM Refer to clinic/hospital department * (ABNORMAL) CBC WITH DIFFERENTIAL (10/01/2006 9:12 PM CDT) WBC 11.9(H) 4.0 - 9.8 K/uL INTERFACE SYSTEM RBC 3.59(L) 3.90 - 4.90 M/uL INTERFACE SYSTEM HEMOGLOBIN 10.4(L) 11.8 - 14.8 g/dL INTERFACE SYSTEM HEMATOCRIT 31.6(L) 35.5 - 44.0 % INTERFACE SYSTEM MCV 88.0 82.0 - 99.0 fL INTERFACE SYSTEM MCH 29.0 27.2 - 32.6 pg INTERFACE SYSTEM MCHC 32.9 31.5 - 35.5 % INTERFACE SYSTEM RDW 14.0 11.5 - 14.5 % INTERFACE SYSTEM RDW-STDEV 43.9 37.1 - 48.7 fL INTERFACE SYSTEM PLATELETS 391(H) 140 - 350 K/uL INTERFACE SYSTEM MPV 9.1(L) 9.3 - 12.4 fL INTERFACE SYSTEM 10/01/2006 9:12 PM CDT Norris Perdomo MD HEMATOLOGY ORDERABLES Edited Performing Organization Address [facility] Phone Number INTERFACE SYSTEM Refer to clinic/hospital department * (ABNORMAL) C-REACTIVE PROTEIN (10/01/2006 9:12 PM CDT) CRP 2.1(H) 0.0 - 0.8 mg/dL INTERFACE SYSTEM 10/01/2006 9:12 PM CDT Norris Perdomo MD CHEMISTRY ORDERABLES Edited Performing Organization Address [facility] Phone Number INTERFACE SYSTEM Refer to clinic/hospital department * COMPREHENSIVE METABOLIC PANEL (10/01/2006 9:12 PM CDT) GLUCOSE 99 65 - 99 mg/dL INTERFACE SYSTEM CREATININE 0.61 0.51 - 0.95 mg/dL INTERFACE SYSTEM CALCIUM 8.8 8.4 - 10.2 mg/dL INTERFACE SYSTEM ALKALINE PHOSPHATASE 64 35 - 104 U/L INTERFACE SYSTEM AST 16 12 - 32 U/L INTERFACE SYSTEM ALT 9 0 - 31 U/L INTERFACE SYSTEM TOTAL PROTEIN 6.4 6.3 - 8.6 g/dL INTERFACE SYSTEM ALBUMIN 3.9 3.4 - 4.8 g/dL INTERFACE SYSTEM BILIRUBIN TOTAL 0.7 0.2 - 1.0 mg/dL INTERFACE SYSTEM BUN 10 6 - 20 mg/dL INTERFACE SYSTEM SODIUM 138 135 - 145 mmol/L INTERFACE SYSTEM POTASSIUM 4.1 3.5 - 4.9 mmol/L INTERFACE SYSTEM CHLORIDE 104 96 - 108 mmol/L INTERFACE SYSTEM CO2 24 22 - 30 mmol/L INTERFACE SYSTEM GFR, >60 >=60 mL/min/1.7 sq meter INTERFACE SYSTEM GFR >60 >=60 mL/min/1.7 sq meter INTERFACE SYSTEM Comment: Estimated GFR rate interpretative information for both Americans and non- Americans is available on the [facility] Intranet at: [email or web address] Select: Lab Policies and Procedures Select: Reference Ranges - GFR 10/01/2006 9:12 PM CDT Norris Perdomo MD CHEMISTRY ORDERABLES Edited Performing Organization Address City/[facility] Co de Phone Number INTERFACE SYSTEM Refer to clinic/hospital department * ED HOLD (10/01/2006 9:12 PM CDT) SPECIMEN HOLD, BLOOD 7 days INTERFACE SYSTEM 10/01/2006 9:12 PM CDT Norris Perdomo MD CHEMISTRY ORDERABLES Edited Performing Organization Address City/[facility] Co de Phone Number INTERFACE SYSTEM Refer to clinic/hospital department documented in this encounter Visit Diagnoses Diagnosis Abdominal pain, unspecified site- Primary documented in this encounter Care Teams Stripper Cutter Machine Relationship Specialty Start Date End Date Emerson Watson MD [address] [place] [address] [place] [address] PCP - General Family Practice 09/20/22 documented as of this encounter
--- OUTSIDE RECORDS SUMMARY | 2024-10-03 16:16 | XMS_ITS | Encounter Summary ---
Author Organization [facility] Address [facility] [place] [address] Care Team Providers Care Binder Cutter Name Role Phone Angel Andrade MD Unavailable [phone] Simon Hughes MD Primary Care Provider [phone] Emerson Watson MD Primary Care Provider [phone] Emerson Watson MD Primary Care Provider [phone] Emerson Watson MD Primary Care Provider [phone] Emerson Watson MD Primary Care Provider [phone] Reji Ramirez MD Unavailable [phone] Encounter Details Date Type Department Care Team (Late st Contact Info) Description 04/13/2022 MyChart Message Enc [facility] [address] [place] [address] Emerson Watson MD [address] [place] [id number] Recent blood pressures Social History Tobacco Use Types Packs/Day Years Used Date Smoking Tobacco: Never Smokeless Tobacco: Never Alcohol Use Standard Drinks/Week Comments Yes 0 (1 standard drink = 0.6 oz pur e alcohol) 2 drinks per week PHQ-2 Answer Date Recorded Patient Health Questionnaire-2 Score 0 04/01/2022 Comments No Sex and Gender Information Value Date Recorded Sex Assigned at Female 04/10/2024 11:52 AM ROVING TELLER Legal Sex Female 7:00 PM CDT Gender Identity Female 05/08/2024 9:04 PM ROVING TELLER Sexual Orientation Straight 05/08/2024 9: 04 PM ROVING TELLER COVID-19 Exposure Response Date Recorded In the last 10 days, have yo u been in contact with someone who was confirmed or suspected to have Coronavirus/COVID-19? No / Unsure 04/01/2022 4:19 PM ROVING TELLER documented as of this encounter Functional Status [...] Ahn RN Active documented in this encounter Progress Notes * Emerson Watson MD - 04/14/2022 7:17 AM CST Continue to monitor and bring in logs to visit next week. No changes at this time NG TELLER documented in this encounter Plan of Treatment Upcoming Encounters Date Type Department Care Team (Late st Contact Info) Description 01/21/2025 2:20 PM CDT Office Visit [address] [place] [address] Emerson Watson MD [address] [place] [address] documented as of this encounter Visit Diagnoses Not on filedocumented in this encounter Additional Health Concerns Infection Onset Date Last Indicated Resolved Time COVID-19 Rule Out 07/26/2022 07/26/2022 07/26/2022 4:24 PM CDT COVID-19 Rule Out 03/10/2023 03/10/2023 03/10/2023 2:55 PM ROVING TELLER COVID-19 Rule Out 03/18/2023 03/18/2023 03/18/2023 2:42 PM ROVING TELLER RSV 03/18/2023 03/18/2023 03/28/2023 12:3 2 AM ROVING TELLER Influenza - Seasonal 03/18/2023 03/18/2023 024 12:32 AM ROVING TELLER COVID-19 Rule Out 11/24/2023 11/24/2023 11/24/2023 10:13 AM CDT COVID-19 Rule Out 03/22/2024 03/22/2024 03/22/2024 4:59 PM ROVING TELLER COVID-19 Rule Out 04/30/2024 04/30/2024 04/30/2024 1:33 PM ROVING TELLER Assessment Noted Time PHQ-9 Depression Total Score: 0 10/02/19 2:26 PM CDT documented as of this encounter Care Teams Binder Cutter Relationship Specialty Start Date End Date Simon Hughes MD [address] [place] [address] [place] [address] PCP - General INTERNAL MEDICINE 09/10/21 06/15/22 Emerson Watson MD [address] [place] [address] PCP - General FAMILY PRACTICE 06/16/22 08/01/22 Emerson Watson MD [address] [place] [address] PCP - General FAMILY PRACTICE 08/03/22 08/07/22 Emerson Watson MD [address] [place] [address] PCP - General FAMILY PRACTICE 08/02/22 08/02/22 Emerson Watson MD [address] [place] [address] [place] [address] PCP - General FAMILY PRACTICE 08/11/22 Angel Andrade MD [address] [address] Referring Physician GASTROENTEROLOGY 12/17/20 [place] [address], [place] [address] SURGERY 03/10/23 documented as of this encounter
--- OUTSIDE RECORDS SUMMARY | 2024-10-03 16:16 | XMS_ITS | Encounter Summary ---
Author Organization [employer] Address [address] [place] [address] Care Team Providers Care Movie Stunt Performer Name Role Phone Emerson Watson MD Primary Care Provider Encounter Details Date Type Department Care Team (Late st Contact Info) Description 09/26/2006 Outpatient Historical HIS PATIENT IN A BED Michel Irby MD [address] [place], [place] [id number] Pelvic Peritoneal Adhesions, Female (Postoperative) (Postinfection) (Primary Dx) Social History Tobacco Use Types Packs/Day Years Used Date Smoking Tobacco: Never Assessed Comments Unknown Sex and Gender Information Value Date Recorded Sex Assigned at Not on file 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 Gender Identity Not on file Sexual Orientation Not on file documented as of this encounter Plan of Treatment Not on file documented as of this encounter Procedures Procedure Name Priority Date/Time Associated Diagnosis Comments HEMOGLOBIN AND HEMATOCRIT Routine 09/26/2006 12:37 PM CDT documented in this encounter Results * HEMOGLOBIN AND HEMATOCRIT (09/26/2006 12:37 PM CDT) HEMOGLOBIN 13.7 11.8 - 14.8 g/dL INTERFACE SYSTEM HEMATOCRIT 40.8 35.5 - 44.0 % INTERFACE SYSTEM 09/26/2006 12:3 7 PM CDT us Michel Irby MD HEMATOLOGY ORDERABLES Edited INTERFACE SYSTEM Refer to clinic/hospital department documented in this encounter Visit Diagnoses Diagnosis Pelvic peritoneal adhesions, female (postoperative) (postinfection)- Primary documented in this encounter Care Teams Movie Stunt Performer Relationship Specialty Start Date End Date Emerson Watson MD [address] [place] [address] [place] [address] PCP - General Family Practice 09/20/22 documented as of this encounter
--- NOTE | 2024-10-03 18:13 | ED.HA ---
HPI - Headache General Chief Complaint: Headache Stated Complaint: migraine x 2 days, vaginal pain x 2 days Focused HPI: 53 y/o F with hx of migraines presents to the ED for a migraine x2 days. Pt states the pain is behind her right eye and travels to the top of her head and then to the back. Pt endorses associated blurred vision, n/v, photophobia, phonophobia. Pt states staring at her computer at work today made her sx worse. Pt took sumatriptan yesterday and this morning without improvement. Pt has a neurologist at [facility] but has not seen him in a year. Denies focal numbness or weakness. Pt is also endorsing vaginal pain x2 days. Pt states she feels something down there that thomson when she urinates. Denies vaginal discharge. Reports recent unprotected sex and is concerned she may have an STD. 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 Denies abdominal pain, fevers. GENERAL: Well-appearing, well-nourished, and in no acute distress. HEAD: Normocephalic, atraumatic. CHEST: Clear to auscultation. ?No respiratory distress. HEART: Regular rate and rhythm.? NEURO: ?Alert and oriented x3. No ataxia Patient screened in triage and initial orders placed.? ?Additional care and disposition to be based upon?diagnostic testing and treatment. Related Data Allergies Allergy/AdvReac Type Severity Reaction Status Date / Time azithromycin Allergy Unknown Unknown Verified 05/29/23 23:31 codeine Allergy Unknown Unknown Verified 05/29/23 23:31 Sulfa (Sulfonamide Allergy Unknown Unknown Verified 05/29/23 23:31 Antibiotics) tetracycline Allergy Unknown Unknown Verified 05/29/23 23:31 lisinopril AdvReac Intermediate Unknown Verified 05/29/23 23:31 Course Vital Signs Vital signs: Vital Signs Temperature 97.4 F L 10/03/24 16:16 Pulse Rate 66 10/03/24 16:16 Blood Pressure 141/85 H 10/03/24 16:16 Pulse Oximetry 98 10/03/24 16:16 Temperature 97.4 F L 10/03/24 16:16 Pulse Rate 66 10/03/24 16:16 Blood Pressure 141/85 H 10/03/24 16:16 Pulse Oximetry 98 10/03/24 16:16 Discharge Plan Discharge Clinical Impression: Headache Qualifiers: Headache type: unspecified Headache chronicity pattern: acute headache Intractability: intractable Qualified Code(s): R51.9 - Headache, unspecified Patient Disposition: Elopement After Seen by Prov Patient Language: [place] Islander Prescriptions: No Action hydrocodone-acetaminophen 7.5-325 mg tablet 1 tablet PO Q6H MDD 4 tabs PRN (Reason: pain) 3 Days Qty: 12 0RF metoclopramide HCl [Reglan] 10 mg tablet 10 mg PO Q6H PRN (Reason: nausea and vomiting) Qty: 14 0RF Follow-up/Referrals: Walter,Emerson Fong MD [Primary Care Provider] -
--- NOTE | 2024-10-03 20:15 | PC.NURSE ---
patient reports that she is leaving and will follow up with her primary doctor. patient ambulatory to leave ED without difficulty and in no distress.
--- OUTSIDE RECORDS SUMMARY | 2024-10-03 20:22 | XMS_ITS | Clinical Summary ---
Author Organization [facility] Address [address] 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 Gender Identity Not on file Sexual Orientation [...] 04/26/2019, 09/28/2018 Medical Devices Implanted Type Area Human Resources Generalist Device Identifier Shelf Expiration Date Model / Serial / Lot Seamguard Endogia 60 Prpl [id number] - [id number] Implanted:Qt y: 1 on 09/26/2022 by Reji Ramirez MD at [facility] N/A: Stomach [employer] [id number] 05/14/2025 12BSGTRI 60P / / [id number] Seamguard Endogia 60 Blk [id number] - [id number] Implanted:Qt y: 1 on 09/26/2022 by Reji Ramirez MD at [facility] N/A: Stomach [employer] [id number] 03/01/2025 12BSGTRI 60B / / [id number] Seamguard Endogia 60 Blk [id number] - [id number] Implanted:Qt y: 1 on 09/26/2022 by Reji Ramirez MD at [facility] N/A: Stomach [employer] [id number] 03/01/2025 12BSGTRI 60B / / [id number] Seamguard Endogia 60 Prpl [id number] - [id number] Implanted:Qt y: 1 on 09/26/2022 by Reji Ramirez MD at [facility] N/A: Stomach [employer] [id number] 05/14/2025 12BSGTRI 60P / / [id number] Seamguard Endogia 60 Prpl [id number] - [id number] Implanted:Qt y: 1 on 09/26/2022 by Reji Ramirez MD at [facility] N/A: Stomach [employer] [id number] 05/14/2025 12BSGTRI 60P / / [id number] Procedures Procedure Name Priority Date/Time Associated Diagnosis [...] ASSESSMENT: BI-RADS CATEGORY 1: Negative DICTATION LOCATION: [facility] Narrative 07/16/2020 7:15 AM CDT BILATERAL DIAGNOSTIC DIGITAL MAMMOGRAM WITH 3D TOMOSYNTHESIS AND CAD AND LIMITED RIGHT BREAST SONOGRAM DATE: 07/15/2020 1:01 PM HISTORY: Abnormal outside CT report right breast. TECHNIQUE: A bilateral diagnostic tomogram was performed and is compared to outside studies from [facility] dated 09/21/2007. Low Dose full field [...] and is compared to outside studies from [facility] dated 09/21/2007. Low Dose full field [...] ASSESSMENT: BI-RADS CATEGORY 1: Negative DICTATION LOCATION: [facility] Aleah Peraza MD MAMMO ORDERABLES Final Result from Last 3 Months or Most Recently Relevant to Health Maintenance [place] [id number] RX [employer] RX Member Subscriber Plan / Payer (Ef fective 2022-Present) Name:Rose Guallpa Relation to Subscriber:Spouse Payer ID:Not on file Group ID:[id number] Type:RX Commercial Address: GENIE KOEHLER RX AGUILAR PLANS (INTERNAL) [facility] Internal Plans Advance Directives For more information, please contact: [phone] * Full Code (Latest Code Status on File) Date Activated Date Inactivated Comments 09/30/2022 1:24 AM 09/30/2022 7:01 PM * Full Code Date Activated Date Inactivated Comments 09/26/2022 3:36 PM 09/28/2022 9:04 PM * Full Code Date Activated Date Inactivated Comments 09/26/2022 8:56 AM 09/26/2022 3:36 PM * Full Code Date Activated Date Inactivated Comments 09/01/2022 11:32 AM 09/01/2022 5:31 PM Care Teams Fitting Room Supervisor Relationship Specialty Start Date End Date Emerson Watson MD [address] [place] [address] [place] [address] PCP - General Family Practice 09/20/22
--- OUTSIDE RECORDS SUMMARY | 2024-10-03 20:23 | XMS_ITS | Encounter Summary ---
Author Organization [employer] Address 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
--- OUTSIDE RECORDS SUMMARY | 2024-10-03 20:23 | XMS_ITS | Encounter Summary ---
Author Organization [employer] Address [address] [place] [address] Care Team Providers Care Hospital Carrier Name Role Phone Emerson Watson MD Primary Care Provider Encounter Details Date Type Department Care Team (Late st Contact Info) Description 09/26/2006 Outpatient Historical HIS PATIENT IN A BED Michel Irby MD [address] [place], [place] [id number] Pelvic Peritoneal Adhesions, Female (Postoperative) (Postinfection) (Primary Dx) Social History Tobacco Use Types Packs/Day Years Used Date Smoking Tobacco: Never Assessed Comments Unknown Sex and Gender Information Value Date Recorded Sex Assigned at Not on file 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
--- OUTSIDE RECORDS SUMMARY | 2024-10-03 20:23 | XMS_ITS | Encounter Summary ---
Author Organization [facility] Address [facility] [place] [address] Care Team Providers Care Program Medical Director Name Role Phone Angel Andrade MD Unavailable [phone] Simon Hughes MD Primary Care Provider [phone] Emerson Watson MD Primary Care Provider + [phone] Emerson Watson MD Primary Care Provider [phone] Emerson Watson MD Primary Care Provider [phone] Emerson Watson MD Primary Care Provider [phone] Reji Ramirez MD Unavailable [phone] Encounter Details Date Type Department Care Team (Late st Contact Info) Description 03/25/2022 MyChart Message Enc [facility] [address] [place] [address] Emerson Watson MD [address] [place], [place] [id number] Rose Guallpa 1970 Social History Tobacco Use [...] Sex Assigned at Female 04/10/2024 11:52 AM PHOTOGRAPHS CURATOR Legal Sex Female 7:00 PM CDT Gender Identity Female 05/08/2024 9:04 PM PHOTOGRAPHS CURATOR Sexual Orientation Straight 05/08/2024 9: 04 PM PHOTOGRAPHS CURATOR COVID-19 Exposure Response Date Recorded In the last 10 days, have yo u been in contact with someone who was confirmed or suspected to have Coronavirus/COVID-19? No / Unsure 03/23/2022 10:57 AM PHOTOGRAPHS CURATOR documented as of this encounter Functional Status [...] need OV to assess and med changes OGRAPHS CURATOR documented in this encounter Plan of Treatment Upcoming Encounters Date Type Department Care Team (Late st Contact Info) Description 01/21/2025 2:20 PM CDT Office Visit [address] [place] [address] Emerson Watson MD [address] [place] [address] documented as of this encounter Visit Diagnoses Not on filedocumented in this encounter Additional Health Concerns Infection Onset Date Last Indicated Resolved Time COVID-19 Rule Out 07/26/2022 07/26/2022 07/26/2022 4:24 PM CDT COVID-19 Rule Out 03/10/2023 03/10/2023 03/10/2023 2:55 PM PHOTOGRAPHS CURATOR COVID-19 Rule Out 03/18/2023 03/18/2023 03/18/2023 2:42 PM PHOTOGRAPHS CURATOR RSV 03/18/2023 03/18/2023 03/28/2023 12:3 2 AM PHOTOGRAPHS CURATOR Influenza - Seasonal 03/18/2023 03/18/2023 024 12:32 AM PHOTOGRAPHS CURATOR COVID-19 Rule Out 11/24/2023 11/24/2023 11/24/2023 10:13 AM CDT COVID-19 Rule Out 03/22/2024 03/22/2024 03/22/2024 4:59 PM PHOTOGRAPHS CURATOR COVID-19 Rule Out 04/30/2024 04/30/2024 04/30/2024 1:33 PM PHOTOGRAPHS CURATOR Assessment Noted Time PHQ-9 Depression Total Score: 0 10/02/19 2:26 PM CDT documented as of this encounter Care Teams Program Medical Director Relationship Specialty Start Date End Date Simon Hughes MD [address] [place] [address] [place] [address] PCP - General INTERNAL MEDICINE 09/10/21 06/15/22 Emerson Watson MD [facility] [place] [address] PCP - General FAMILY PRACTICE 06/16/22 08/01/22 Emerson Watson MD [address] [place] [address] PCP - General FAMILY PRACTICE 08/03/22 08/07/22 Emerson Watson MD [address] [facility] [place] [facility] [place] [address] PCP - General FAMILY PRACTICE 08/02/22 08/02/22 Emerson Watson MD [address] [place] [address] [place] [address] PCP - General FAMILY PRACTICE 08/11/22 Angel Andrade MD [address] [address] Referring Physician GASTROENTEROLOGY 12/17/20 [place] [address] [place] [address] SURGERY 03/10/23 documented as of this encounter
--- OUTSIDE RECORDS SUMMARY | 2024-10-03 20:23 | XMS_ITS | Encounter Summary ---
Author Organization [employer] Address 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 Gender Identity Not on file Sexual Orientation [...] Negative INTERFACE SYSTEM 01/13/2005 8:30 AM CDT [facility] vivit URINE ORDERABLES Final Result Performing Organization Address [facility] Phone Number INTERFACE SYSTEM Refer to clinic/hospital department * URINALYSIS WITH REFLEX CULTURE (01/13/2005 8:30 AM CDT) Pathologist [facility] URINE CULTURE ORDER Not indicated INTERFACE SYSTEM Comment: Criteria for a reflex culture include one or more of the following: Abn ormal nitrite, leukocyte esterase, WBCs or RBCs. Lack of qualifying criteria does not exclude the possiblity of a urinary tract infection. Dilute urine, drug interference, etc. may decrease the sensitivity of the criteria analytes. 01/13/2005 8:30 AM CDT [facility] URINE ORDERABLES Final Result Performing Organization Address [facility] Phone Number INTERFACE SYSTEM Refer to clinic/hospital [...] ORDERABLES Final R esult Performing Organization Address [facility] Co de Phone Number INTERFACE SYSTEM Refer [...] ORDERABLES Final R esult Performing Organization Address [facility] Co de Phone Number INTERFACE SYSTEM Refer to clinic/hospital department * POC , URINE (01/12/2005 8:20 AM CDT) HCG QUAL URINE Negative Negative INTER FACE SYSTEM SPECIFIC GRAVITY UA 1.015 1.001 - 1.035 INTERFACE SYSTEM 01/12/2005 8:20 AM CDT Michel Irby MD POINT OF CARE TESTING Final R esult Performing Organization Address [facility] Phone Number INTERFACE SYSTEM Refer to clinic/hospital [...] ORDERABLES Final Re sult Performing Organization Address [facility] Phone Number INTERFACE SYSTEM Refer to clinic/hospital department * HEMOGLOBIN AND HEMATOCRIT (01/12/2005 8:05 AM CDT) HEMOGLOBIN 14.2 11.8 - 14.8 g/dL INTERFACE SYSTEM HEMATOCRIT 42.8 35.5 - 44.0 % INTERFACE SYSTEM 01/12/2005 8:05 AM CDT Michel Irby MD HEMATOLOGY ORDERABLES Final R esult Performing Organization Address [facility] Phone Number INTERFACE SYSTEM Refer to clinic/hospital department documented in this encounter Visit Diagnoses Diagnosis Dysmenorrhea- Primary documented in this encounter Care Teams Stemmer Machine Relationship Specialty Start Date End Date Emerson Watson MD [address] [place] [address] [place] [address] PCP - General Family Practice 09/20/22 documented as of this encounter
--- OUTSIDE RECORDS SUMMARY | 2024-10-03 20:23 | XMS_ITS | Encounter Summary ---
Author Organization [facility] Address [facility] [place] [address] Care Team Providers Care Large Animal Veterinarian Name Role Phone Delia Ozuna MD Primary Care Provider Un available None, Provider Primary Care Provider Unavaila Mitali Branch PA-C Primary Care Provider + [phone] Angel Andrade MD Unavailable [phone] Simon Hughes MD Primary Care Provider [phone] Pedro Phan MD Primary Care Provider + Simon Hughes MD Primary Care Provider [phone] Emerson Watson MD Primary Care Provider [phone] Emerson Watson MD Primary Care Provider [phone] Emerson Watson MD Primary Care Provider [phone] Emerson Watson MD Primary Care Provider [phone] Reji Ramirez MD Unavailable [phone] Encounter Details Date Type Department Care Team (Late st Contact Info) Description 09/26/2019 Prep for Procedure [facility] [address] [place] [address] Adeola Ng MD [address] [place] [address] Social History Tobacco Use Types Packs/Day Years Used Date Smoking Tobacco: Never Smokeless Tobacco: Never Alcohol Use Standard Drinks/Week Comments Yes 0 (1 standard drink = 0.6 oz pur e alcohol) socially Comments No Sex and Gender Information Value Date Recorded Sex Assigned at Female 04/10/2024 11:52 AM FILTER TANK OPERATOR Legal Sex Female 7:00 PM CDT Gender Identity Female 05/08/2024 9:04 PM FILTER TANK OPERATOR Sexual Orientation Straight 05/08/2024 9: 04 PM FILTER TANK OPERATOR COVID-19 Exposure Response Date Recorded In the [...] Description 01/21/2025 2:20 PM CDT Office Visit [facility] [address] [place] [address] Emerson Watson MD [address] [place] [address] [place] [address] documented as of this encounter Results * PRE-SURGICAL/PRE-PROCEDURE CORONAVIRUS (COVID 19) (09/28/2019 1:40 PM CDT) CORONAVIRUS SARS COV 2 PCR (RESP) NOT DETECTED NOT DETECTED 09/29/2019 8:59 PM CDT [facility] Comment: A Not Detected (negative) test result [...] providers and patients using the following websites: https://www.[employer].com/home/Covid-19/HCP/Quest[employer]/fact- sheet.html https://www.[employer]/home/Covid-19/Patients/ QuestIVD/fact-sheet.html This test has been authorized by the FDA under an Emergency Use Authorization (EUA) for use by authorized laboratories. Due to the current public health emergency, [facility] is receiving a high volume of samples [...] about COVID-19 can be found at the [facility] website: www.[employer]ics/Covid19. Test performed at [facility] [place] [address] [address] Director: SKINNY MOLINA DO,MPH NASOPHARYNGEAL SWAB / Unknown 09/28/2019 1:40 PM CDT us Adeola Ng MD MICROBIOLOGY - GENERAL ORDER KHANH Final Result [facility] [address] [facility] [place] [address] documented in this encounter Visit Diagnoses Diagnosis [...] Rule Out 02/24/2020 02/24/2020 02/26/2020 4:47 PM FILTER TANK OPERATOR COVID-19 Rule Out 04/23/2020 04/23/2020 04/24/2020 5:21 PM FILTER TANK OPERATOR COVID-19 Rule Out 09/24/2020 09/24/2020 09/24/2020 9:55 PM CDT COVID-19 Rule Out 02/21/2021 02/21/2021 02/21/2021 5:22 PM FILTER TANK OPERATOR COVID-19 Rule Out 03/13/2021 03/13/2021 03/13/2021 3:13 AM FILTER TANK OPERATOR COVID-19 Rule Out 04/04/2021 04/04/2021 04/04/2021 2:40 PM FILTER TANK OPERATOR COVID-19 Rule Out 04/04/2021 04/04/2021 04/06/2021 2:04 AM FILTER TANK OPERATOR COVID-19 Rule Out 12/11/2021 12/11/2021 12/11/2021 8:30 PM CDT COVID-19 Rule Out 07/26/2022 07/26/2022 07/26/2022 4:24 PM CDT COVID-19 Rule Out 03/10/2023 03/10/2023 03/10/2023 2:55 PM FILTER TANK OPERATOR COVID-19 Rule Out 03/18/2023 03/18/2023 03/18/2023 2:42 PM FILTER TANK OPERATOR RSV 03/18/2023 03/18/2023 03/28/2023 12:3 2 AM FILTER TANK OPERATOR Influenza - Seasonal 03/18/2023 03/18/2023 024 12:32 AM FILTER TANK OPERATOR COVID-19 Rule Out 11/24/2023 11/24/2023 11/24/2023 10:13 AM CDT COVID-19 Rule Out 03/22/2024 03/22/2024 03/22/2024 4:59 PM FILTER TANK OPERATOR COVID-19 Rule Out 04/30/2024 04/30/2024 04/30/2024 1:33 PM FILTER TANK OPERATOR documented as of this encounter Care Teams Large Animal Veterinarian Relationship Specialty Start Date End Date Delia Ozuna MD PCP - General INTERNAL MEDICINE 09/16/19 03/25/20 None, MD Verito PCP - General 03/27/20 04/22/20 Mitali Mcdowell PA-C [address] [facility] [address] [place] [address] PCP - General PHYSICIAN ORTHOPAEDIC GENERAL 04/23/20 02/07/21 Simon [place] MD [address] [facility] [place] [address] PCP - General INTERNAL MEDICINE 02/08/21 08/03/21 Pedro Phan MD [address] [place] [id number] PCP - General FAMILY PRACTICE 08/04/21 09/09/21 Simon Hughes MD [address] [facility] [address] [place] [address] PCP - General INTERNAL MEDICINE 09/10/21 06/15/22 Emerson Watson MD [address] [place] [address] PCP - General FAMILY PRACTICE 06/16/22 08/01/22 Emerson Watson MD [address] [place] [address] PCP - General FAMILY PRACTICE 08/03/22 08/07/22 Emerson Watson MD [address] [facility] [place] [address] PCP - General FAMILY PRACTICE 08/02/22 08/02/22 Emerson Watson MD [address] [place] [address] PCP - General FAMILY PRACTICE 08/11/22 Angel Andrade MD [address] [facility] [address], [place] [address] Referring Physician GASTROENTEROLOGY 12/17/20 [place] [address] [place] [address] SURGERY 03/10/23 documented as of this encounter
--- OUTSIDE RECORDS SUMMARY | 2024-10-03 20:23 | XMS_ITS | Encounter Summary ---
Author Organization [facility] Address [facility] [place] [address] Care Team Providers Care Application Packaging Consultant Name Role Phone Angel Andrade MD Unavailable [phone] Simon Hughes MD Primary Care Provider [phone] Emerson Watson MD Primary Care Provider [phone] Emerson Watson MD Primary Care Provider [phone] Emerson Watson MD Primary Care Provider [phone] Emerson Watson MD Primary Care Provider [phone] Reji Ramirez MD Unavailable [phone] Encounter Details Date Type Department Care Team (Late st Contact Info) Description 04/13/2022 MyChart Message Enc [facility] [address] [place] [address] Emerson Watson MD [address] [place] [id number] Recent blood pressures Social History Tobacco Use [...] Sex Assigned at Female 04/10/2024 11:52 AM HOSPITAL ADMINISTRATIVE ASSISTANT Legal Sex Female 7:00 PM CDT Gender Identity Female 05/08/2024 9:04 PM HOSPITAL ADMINISTRATIVE ASSISTANT Sexual Orientation Straight 05/08/2024 9: 04 PM HOSPITAL ADMINISTRATIVE ASSISTANT COVID-19 Exposure Response Date Recorded In the last 10 days, have yo u been in contact with someone who was confirmed or suspected to have Coronavirus/COVID-19? No / Unsure 04/01/2022 4:19 PM HOSPITAL ADMINISTRATIVE ASSISTANT documented as of this encounter Functional Status [...] next week. No changes at this time ITAL ADMINISTRATIVE ASSISTANT documented in this encounter Plan of Treatment Upcoming Encounters Date Type Department Care Team (Late st Contact Info) Description 01/21/2025 2:20 PM CDT Office Visit [address] [place] [address] Emerson Watson MD [address] [place] [address] documented as of this encounter Visit Diagnoses Not on filedocumented in this encounter Additional Health Concerns Infection Onset Date Last Indicated Resolved Time COVID-19 Rule Out 07/26/2022 07/26/2022 07/26/2022 4:24 PM CDT COVID-19 Rule Out 03/10/2023 03/10/2023 03/10/2023 2:55 PM HOSPITAL ADMINISTRATIVE ASSISTANT COVID-19 Rule Out 03/18/2023 03/18/2023 03/18/2023 2:42 PM HOSPITAL ADMINISTRATIVE ASSISTANT RSV 03/18/2023 03/18/2023 03/28/2023 12:3 2 AM HOSPITAL ADMINISTRATIVE ASSISTANT Influenza - Seasonal 03/18/2023 03/18/2023 024 12:32 AM HOSPITAL ADMINISTRATIVE ASSISTANT COVID-19 Rule Out 11/24/2023 11/24/2023 11/24/2023 10:13 AM CDT COVID-19 Rule Out 03/22/2024 03/22/2024 03/22/2024 4:59 PM HOSPITAL ADMINISTRATIVE ASSISTANT COVID-19 Rule Out 04/30/2024 04/30/2024 04/30/2024 1:33 PM HOSPITAL ADMINISTRATIVE ASSISTANT Assessment Noted Time PHQ-9 Depression Total Score: 0 10/02/19 2:26 PM CDT documented as of this encounter Care Teams Application Packaging Consultant Relationship Specialty Start Date End Date Simon Hughes MD [address] [place] [address] [place] [address] PCP - General INTERNAL MEDICINE 09/10/21 06/15/22 Emerson Watson MD [address] [place] [address] PCP - General FAMILY PRACTICE 06/16/22 08/01/22 Emerson Watson MD [address] [place] [address] PCP - General FAMILY PRACTICE 08/03/22 08/07/22 Emerson Watson MD [address] [place] [address] PCP - General FAMILY PRACTICE 08/02/22 08/02/22 Emerson Watson MD [address] [place] [address] [place] [address] PCP - General FAMILY PRACTICE 08/11/22 Angel Andrade MD [address] [address] Referring Physician GASTROENTEROLOGY 12/17/20 [place] [address], [place] [address] SURGERY 03/10/23 documented as of this encounter
--- OUTSIDE RECORDS SUMMARY | 2024-10-03 20:23 | XMS_ITS | Clinical Summary ---
Author Organization [facility] Address [address] [place] [address] Care Team Providers Care Environmental Planner Name Role Phone Dandre Chavez MD Unavailable [phone] Danielito Irving MD Unavailable [phone] Norm Carrillo MD Primary Care Provider [phone] Allergies Active Allergy Reactions Criticality Noted Date [...] (06/18/2021): Added automatically from request for surgery [id number] Epigastric pain 05/16/2021 Epigastric abdominal pain 12/17/2020 Hepatic steatosis 12/17/2020 Intractable abdominal pain 10/16/2019 Overview (10/24/2019): Added automatically from request for surgery [id number] Gastroesophageal reflux dise ase with esophagitis without [...] (12/18/2020): Added automatically from request for surgery [id number] Acute tonsillitis due to oth er specified organisms 04/07/2018 06/28/2021 Assessment & Plan (04/07/2018 10:02 AM PROOF TECHNICIAN HELPER): Patient demonstrates acute exudate of tonsillitis. Patient was initially seen at [facility] urgent care. I spoke with the [...] 07/03/201506/28 Overview (06/30/2016): Has tingling sensation Aldosteronism ([facility]/HCC) 06/29/2015 04/0 06/2021 Overview (07/02/2016): Hyperaldosteronism Fibrositis [...] How often do you attend chur or jewish services? More than 4 times per year 07/06/2021 Do you belong to any clubs o r organizations such as hindu groups, unions, fraternal or athletic groups, or [...] on file Legal Sex Female 5:23 PM PROOF TECHNICIAN HELPER Gender Identity Not on file Sexual Orientation Not on file Obstetrics History Last Filed Vital Signs Vital Sign Reading Time Taken Comments Blood Pressure 129/87 02/03/2022 5:07 PM PROOF TECHNICIAN HELPER Pulse 60 02/03/2022 5:07 PM PROOF TECHNICIAN HELPER Temperature 36.6 C (97.8 F) 02/03/2022 1:04 PM PROOF TECHNICIAN HELPER Respiratory Rate 16 02/03/2022 5:07 PM PROOF TECHNICIAN HELPER Oxygen Saturation 95% 02/03/2022 5:07 PM PROOF TECHNICIAN HELPER Inhaled Oxygen Concentration - - Weight 103.4 kg (227 lb 15.3 oz) 02/03/2022 1:04 PM PROOF TECHNICIAN HELPER Height 162.6 cm (5' 4) 02/03/2022 1:04 PM PROOF TECHNICIAN HELPER Body Mass Index 39.13 02/03/2022 1:04 PM PROOF TECHNICIAN HELPER Plan of Treatment Health Maintenance Due Date [...] Discontinued 10/22/2014 Medical Devices Explanted Type Area Lead Quality Control Technician Device Identifier Shelf Expiration Date Model / Serial / Lot [employer] 6575 Shields Flexi-Stent 7fr 9cm Small Pigtail Flexible .035in Stent - [id number] Implanted:Qty : 1 on 12/18/2020 by Dandre Chavez MD at [facility] Explanted:Qty : 1 on 12/21/2020 by Dandre Chavez MD at [facility] Stent N/A: Pancreas [employer] 07/24/2025 [id number] / / [id number] Conmed Aranza [id number] Zebulon Viabil 10mm 8.5fr 6cm 200cm Fully Covered Self Expand Pull - [id number] - [id number] Implanted:Qty : 1 on 12/18/2020 by Dandre Chavez MD at [facility] Explanted:Qty : 1 on 12/21/2020 by Dandre Chavez MD at [facility] Stent N/A: Bile Duct Conmed Aranza 01/22/2023 [id number] / [id number] / Conmed Aranza [id number] Zebulon Viabil 10mm 8.5fr 6cm 200cm Fully Covered Self Expand Pull - [id number] - [id number] Implanted:Qty : 1 on 10/23/2019 by Dandre Chavez MD at [facility] Explanted:Qty : 1 on 10/25/2019 by Dandre Chavez MD N/A: Bile Duct Conmed Aranza 06/09/2022 [id number] / [id number] / [employer] [id number] Shields Flexi-Stent 5fr 9cm Small Pigtail Flexible .035in Stent - [id number] Implanted:Qty : 1 on 10/23/2019 by Dandre Chavez MD at [facility] Explanted:Qty : 1 on 10/25/2019 by Dandre Chavez MD N/A: Pancreas [employer] 04/26/2024 [id number] / / [id number] Procedures Procedure Name Priority Date/Time Associated Diagnosis Comments COLONOSCOPY REPORT 10/22/2014 SERUM HEPATITIS PANEL Routine 04/26/2012 12:36 PM PROOF TECHNICIAN HELPER from Last 3 Months or Most Recently Relevant to Health Maintenance Results * COLONOSCOPY REPORT (10/22/2014) Anatomical Region Laterality Modality Other Narrative 10/22/2014 Ordered by an unspecified provider. us Historical Provider GI PROCEDURE ORDERABLES F inal Result * Serum Hepatitis panel (04/26/2012 12:36 PM PROOF TECHNICIAN HELPER) HBV surface ag NONREAC NONREAC HISTO RICAL [...] THIS TEST. Serum 04/26/2012 12:3 6 PM PROOF TECHNICIAN HELPER Yamilka Oropeza MD LAB BLOOD ORDERABLES Final Result HISTORICAL RESULTS from Last 3 Months or Most Recently Relevant to Health Maintenance Insurance [facility] H[facility]/PPO Address: [address] [place] [address] [facility] HMO/PPO Address: [address] [place] [address] Advance Directives For more information, please contact: [phone] * Full Code (Latest Code Status on [...] 7:26 PM 12/17/2020 9:04 PM Care Teams Environmental Planner Relationship Specialty Start Date End Date Norm Carrillo MD [address] [facility] [address], [place] [address] PCP - General Internal Medicine 01/06/22 Dandre Chavez MD [address] [facility] [address] [place] [address] Consulting Physician Gastroenterology 10/25/19 Danielito Irving MD [address] [facility] [address] [place] [address] Surgeon General Surgery 07/07/21
--- OUTSIDE RECORDS SUMMARY | 2024-10-03 20:23 | XMS_ITS | Encounter Summary ---
Author Organization [facility] Address [address] [place] [address] Care Team Providers Care Blending Tank Helper Name Role Phone Emerson Watson MD Primary Care Provider [phone] Encounter Details Date Type Department Care Team (Latest Contact Info) Description 05/11/2001 Outpatient Historical [facility] Henri Chris MD [address] [facility] [address] [place] [id number] HEART DISEASE NOS (Primary Dx) Social History Tobacco Use Types Packs/Day Years Used Date Smoking Tobacco: Never Assessed Comments Unknown Sex and Gender Information Value Date Recorded Sex Assigned at Not on file Legal Sex Female 3:33 AM MANAGER LAW Gender Identity Not on file Sexual Orientation Not on file documented as of this encounter Plan of Treatment Not on file documented as of this encounter Visit Diagnoses Diagnosis Heart disease, unspecified- Primary documented in this encounter Care Teams Blending Tank Helper Relationship Specialty Start Date End Date Emerson Watson MD [facility] [place] [address] [place] [address] PCP - General Family Practice 09/20/22 documented as of this encounter
--- OUTSIDE RECORDS SUMMARY | 2024-10-03 20:23 | XMS_ITS | Encounter Summary ---
Author Organization [facility] Address Formerly [facility] [place] [address] Care Team Providers Care Manager New Product Name Role Phone Angel Andrade MD Unavailable [phone] Emerson Watson MD Primary Care Provider [phone] Reji Ramirez MD Unavailable [phone] Encounter Details Date Type Department Care Team (Late st Contact Info) Description 10/31/2023 Motility Countt Message Enc [facility] [address] [place] [address] Emerson Watson MD [address] [place] [address] Medication Options for neck pain Social [...] How often do you attend chur or scientologist services? More than 4 times per year 05/16/2022 Do you belong to any clubs o r organizations such as pentecostal groups, unions, fraternal or athletic groups, or [...] Recorded Patient Health Questionnaire-2 Score 0 08/24/2023 [facility] - [...] place to sleep or slept in a senior living (including now)? No 06/27/2022 Comments No Sex and Gender Information Value Date Recorded Sex Assigned at Female 04/10/2024 11:52 AM HEALTH UNDERWRITER Legal Sex Female 7:00 PM CDT Gender Identity Female 05/08/2024 9:04 PM HEALTH UNDERWRITER Sexual Orientation Straight 05/08/2024 9: 04 PM HEALTH UNDERWRITER documented as of this encounter Functional Status [...] Status No 06/27/2022 11:33 PM CDT Kimberly oPlanco RN Active documented as of this encounter [...] Description 01/21/2025 2:20 PM CDT Office Visit [facility] [address] [address] Emerson Watson MD [address] [place] [address] documented as of this encounter Visit Diagnoses Not on filedocumented in this encounter Additional Health Concerns Infection Onset Date Last Indicated Resolved Time COVID-19 Rule Out 11/24/2023 11/24/2023 11/24/2023 10:13 AM CDT COVID-19 Rule Out 03/22/2024 03/22/2024 03/22/2024 4:59 PM HEALTH UNDERWRITER COVID-19 Rule Out 04/30/2024 04/30/2024 04/30/2024 1:33 PM HEALTH UNDERWRITER Assessment Noted Time PHQ-9 Depression Total Score: 0 02/14/20 12:57 PM HEALTH UNDERWRITER documented as of this encounter Care Teams Manager New Product Relationship Specialty Start Date End Date Emerson Watson MD [address] [place] [address] PCP - General FAMILY PRACTICE 08/11/22 Angel Andrade MD [address] [facility] [address], [place] [address] Referring Physician GASTROENTEROLOGY 12/17/20 [place] [address] [place] [address] SURGERY 03/10/23 documented as of this encounter
--- OUTSIDE RECORDS SUMMARY | 2024-10-03 20:23 | XMS_ITS | Clinical Summary ---
Author Organization [facility] Address [address] [place] [address] Care Team Providers Care Dry Press Operator Name Role Phone Angel Andrade MD Unavailable Emerson Watson MD Primary Care Provider Reji Ramirez MD Unavailable Allergies Active Allergy Reactions Criticality Noted Date [...] (ALDACTONE) 25 MG tabletIndications:E ssential hypertension,Hypera ldosteronism ([facility]) Take 1 tablet (25 mg total) by [...] Problems Problem Noted Date Diagnosed Date Pancreatitis ([facility]) 07/02/2024 Overactive bladder 09/14/2023 Dysphagia 09/14/2023 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 Vitamin D deficiency 02/15/2023 Prediabetes 02/13/2023 Nausea and vomiting 09/30/2022 SBO (small bowel obstruction) ([facility]) 09/30/2022 Colitis 08/03/2022 Overview (08/03/2022): Added automatically from request for surgery [id number] Postoperative abdominal pain 08/03/2022 Overview (09/14/2023): Added automatically from request for surgery [id number] Skin lesion 08/03/2022 Overview (09/06/2022): Added automatically from request for surgery [id number] Stage 2 chronic kidney disease 03/23/2022 Post-operative [...] (09/14/2023): Added automatically from request for surgery [id number] Added automatically from request for surgery [id number] Gastritis and duodenitis 10/11/2019 Migraine without aura [...] (08/03/2022): Added automatically from request for surgery [id number] Chest pain 05/16/2022 02/03/2023 Encounter for health-related screening 10/12/2020 09/18/2023 Atypical chest pain 09/25/2019 08/17/19 Acute tonsillitis due to oth er specified organisms 04/07/2018 09/19/2019 Overview (09/11/2019): Last Assessment & Plan: Patient demonstrates acute exudate of tonsillitis. Patient was initially seen at [facility] urgent care. I spoke with the provider [...] CDT - 07/26/2024 8:27 PM CDT Emergency [facility] [place] [address] Rikki Hopson DO Headache Discharge Disposition: Home or Self Care (Routine Discharge) 07/26/2024 Travel 07/19/[address] [place] [address] Emerson Watson MD Medication Problem 07/18/2024 Results Follow-Up [address] [place] [address] Emerson Watson MD CHLAMYDIA GC RNA 07/17/2024 Results Follow-Up [address] [place] [address] Emerson Watson MD VAGINITIS SCREEN (VDS) 07/17/2024 Telephone [facility] Med/Surg [address] [place] [address] Renee Martin, RN Follow Up Call (Sent to [email or web address], left message w/ Call back number.) 07/16/2024 3:23 PM CDT - 07/16/2024 11:59 PM CDT Hospital Encounter [facility] [address] [place] [address] Emerson Watson MD Discharge Disposition: Home or Self Care (Routine Discharge) 07/16/2024 Travel 07/16/[address] [place] [address] Emerson Watson MD Lab Order 07/16/2024 Orders Only [facility] [address] [place] [address] Emerson Watson MD 07/15/2024 7:32 PM CDT - 07/15/2024 11:59 PM CDT Hospital Encounter [facility] [address] [place] [address] Emerson Watson MD Discharge Disposition: Home or Self Care (Routine Discharge) 07/15/2024 1:40 PM CDT Office Visit [address] [place] [address] Emerson Watson MD Urinary Incontinence (Patient is presenting with lower back pain, burning with urinating. /Symptoms started over a week ago./Just hasn't got any better. /Pt was in the ER a couple of weeks ago and did have a urinalysis./Patient is concerned about possible STIs and wants a women provider to do a women exam on her. /) 07/15/2024 Travel 07/11/2024 Results Follow-Up [address] [place] [address] Emerson Watson MD CBC W/DIFF AUTOMATED, COMPREHENSIVE METABOLIC PANEL, LIPID PANEL, Additional followed-up results: 4 07/09/2024 11:51 AM CDT - 07/09/2024 11:59 PM CDT Hospital Encounter [facility] [address] [place] [address] Emerson Watson MD Discharge Disposition: Home or Self Care (Routine Discharge) 07/09/2024 Travel 07/05/2024 2:40 PM CDT Office Visit [facility] [address] [place] [address] Emerson Watson MD TCM (Pt is here for TCM from [facility]) 07/05/2024 Travel 07/05/[address] [place] [address] Emerson Watson MD TCM from Last 3 [...] from your doctor or pharmacy? Never 07/02/2024 [facility] Utilities Answer Date Recorded In the past 12 months has e QBE, Delivery [employer], oil, or water youwho threatened to shut off services in your [...] How often do you attend chur or tenriism services? More than 4 times per year 05/16/2022 Do you belong to any clubs o r organizations such as quaker groups, unions, fraternal or athletic groups, or [...] Recorded Patient Health Questionnaire-2 Score 0 07/05/2024 [facility] of Occupat ional Health - Occupational Stress [...] place to sleep or slept in a care home (including now)? No 06/27/2022 Housing Stability Vital Sign Answer Gregory e Recorded In the last 12 months, was t here a time when you were not able to pay the mortgage or rent on time? No 07/02/2024 In the past 12 months, how m any times have you moved where you were living? 0 07/02/2024 At any time in the past 12 m [facility], were you homeless or living in a care home (including now)? No 07/02/2024 Comments No Sex and Gender Information Value Date Recorded Sex Assigned at Female 04/10/2024 11:52 AM QUILLER OPERATOR Legal Sex Female 7:00 PM CDT Gender Identity Female 05/08/2024 9:04 PM QUILLER OPERATOR Sexual Orientation Straight 05/08/2024 9: 04 PM QUILLER OPERATOR Last Filed Vital Signs Vital Sign Reading [...] Description 01/21/2025 2:20 PM CDT Office Visit [facility] [address] [place] [address] Emerson Watson MD [address] [place] [address] Health Maintenance Due Date Last Done [...] or Tdap) 04/26/2029 04/26/2019, 09/28/2018 PHQ-2 (Physician [place]) Completed 07/05/2024 Meningococcal B Vaccine Aged Out [...] - 99 MG/DL 07/26/2024 4:57 PM CDT [facility] BUN 8 7 - 18 MG/DL 07/26/2024 4:57 PM CDT [facility] CREATININE S/P/B 0.79 0.55 - 1.02 MG/DL 07/26/2024 4:57 PM CDT [facility] SODIUM S/P/B 142 136 - 145 MMOL/L 07/26/2024 4:57 PM CDT [facility] POTASSIUM S/P/B 3.5 3.5 - 5.1 MMOL/L 07/26/2024 4:57 PM CDT [facility] CHLORIDE S/P/B 111 97 - 115 MMOL/L 07/26/2024 4:57 PM CDT [facility] CO2 23.4 21 - 32 MMOL/L 07/26/2024 4:57 PM CDT [facility] CALCIUM S/P/B 8.8 8.5 - 10.1 MG/DL 07/26/2024 4:57 PM CDT [facility] BILIRUBIN TOTAL S/P/B 0.5 0.2 - 1.2 MG/DL 07/26/2024 4:57 PM CDT [facility] Comment: THIS ASSAY IS NOT RECOMMENDED FOR PATIENTS UNDERGOING TREATMENT WITH ELTROMBOPAG DUE TO THE POTENTIAL FOR FALSELY ELEVATED RESULTS. TOTAL PROTEIN S/P/B 7.0 6.4 - 8.2 G/DL 07/26/2024 4:57 PM CDT [facility] ALBUMIN S/P/B 3.7 3.4 - 5.0 G/DL 07/26/2024 4:57 PM CDT [facility] AST 13(L) 15 - 37 U/L 07/26/2024 4:57 PM CDT [facility] ALT 20 14 - 55 U/L 07/26/2024 4:57 PM CDT [facility] ALKALINE PHOSPHATASE S/P/B 82 50 - 136 U/L 07/26/2024 4:57 PM CDT [facility] ANION GAP 7.6 2 - 10 MMOL/L 07/26/2024 4:57 PM CDT [facility] BUN CREATININE RATIO 10.1 6 - 26 07/26/2024 4:57 PM T [facility] A/G RATIO 1.1 1.0 - 2.0 RATIO 07/26/2024 4:57 PM T [facility] GFR ESTIMATE 89(L) >90 ML/MIN/1.7 3 M2 07/26/2024 4:57 PM CDT [facility] Comment: NOTE: eGFR is not [...] us Rikki Hopson DO LABORATORY Final Result [facility] [address] [place] [address], [place] [phone] * (ABNORMAL) CBC W/DIFF AUTOMATED (07/26/2024 4:20 PM CDT) Only the most recent of2 resultswithin the time period is included. WBC 8.69 4.5 - 11.0 x10'3/uL 07/26/2024 4:37 PM CDT [facility] RBC 4.48 4.20 - 5.40 x10'6/uL 07/26/2024 4:37 PM CDT [facility] HGB 13.0 12.0 - 16.0 G/DL 07/26/2024 4:37 PM CDT [facility] HCT 40.3 38.0 - 48.0 % 07/26/2024 4:37 PM CDT [facility] MCV 90.0 81.0 - 99.0 FL 07/26/2024 4:37 PM CDT [facility] MCH 29.0 27.0 - 31.0 PG 07/26/2024 4:37 PM CDT [facility] MCHC 32.3 32.0 - 36.0 G/DL 07/26/2024 4:37 PM CDT [facility] RDW 12.8 11.5 - 14.5 % 07/26/2024 4:37 PM CDT [facility] PLT 281 130 - 400 x10'3/uL 07/26/2024 4:37 PM CDT [facility] MPV 8.9(L) 9.3 - 12.2 FL 07/26/2024 4:37 PM CDT [facility] DIFFERENTIAL TYPE AUTOMATED DIFFERENTIAL 07/26/2024 4:37 PM CDT [facility] NEUTROPHILS % 73.4 % 07/26/2024 4:37 PM CDT [facility] LYMPHOCYTES % 20.4 % 07/26/2024 4:37 PM CDT [facility] MONOCYTES % 4.8 % 07/26/2024 4:37 PM CDT [facility] EOSINOPHILS 0.6 % 07/26/2024 4:37 PM CDT [facility] BASOPHILS 0.6 % 07/26/2024 4:37 PM CDT [facility] IMMATURE GRANS % 0.2 % 07/27/19 4:37 PM CDT [facility] ABS. NEUTROPHILS 6.38 1.80 - 7.70 x10'3/uL 07/26/2024 4:37 PM CDT [facility] ABS. LYMPHOCYTES 1.77 1.00 - 4.80 x10'3/uL 07/26/2024 4:37 PM CDT [facility] ABS. MONOCYTES 0.42 0.24 - 0.86 x10'3/uL 07/26/2024 4:37 PM CDT [facility] ABS. EOSINOPHILS 0.05 0.04 - 0.36 x10'3/uL 07/26/2024 4:37 PM CDT [facility] ABS. BASOPHILS 0.05 0.01 - 0.08 x10'3/uL 07/26/2024 4:37 PM CDT [facility] ABS. IMMATURE GRANULOCYTES 0.02 0.00 - 0.49 x10'3/uL 07/26/2024 4:37 PM CDT [facility] 07/26/2024 4:20 PM CDT us Rikki Hopson DO LABORATORY Final Result [facility] [address] [place] [address], [place] [phone] * CHLAMYDIA GC RNA (07/16/2024 3:32 PM CDT) SPECIMEN SOURCE URINE 3:30 PM CDT [facility] CHLAMYDIA PCR NEGATIVE NEGATIVE 07/18/2024 11:43 AM CDT [facility] Comment:PERFORMED BY NUCLEIC ACID AMPLIFICATION N.GONORRHOEAE RNA TMA NEGATIVE NEGATIVE 07/18/2024 11:43 AM CDT [facility] Comment:PERFORMED BY NUCLEIC ACID AMPLIFICATION URINE SPECIMEN / Unknown 07/16/2024 3:32 PM CDT Emerson Watson MD MICROBIOLOGY - GENERAL ORDER KHANH Final Result [facility] [address] [place] [address], [place] [phone] [facility] [address] [place] [address], [place] [phone] * VAGINITIS SCREEN (VDS) (07/15/2024 2:13 PM CDT) SOURCE VAGINAL SPECIMEN 07/16/2024 3:52 PM CDT [facility] TRICHOMONAS NEGATIVE 07/16/2024 3:52 PM CDT [facility] Comment:NOT DETECTED BY DNA PROBE GARDNERELLA VAGINALIS POSITIVE 07/16/2024 3:52 PM CDT [facility] Comment:DETECTED BY DNA PROB E PHYLLIS SPECIES NEGATIVE 3:52 PM CDT [facility] Comment:NOT DETECTED BY DNA PROBE VAGINAL STRUCTURE / Unknown 07/15/2024 2:13 PM CDT us Emerson Watson MD MICROBIOLOGY - GENERAL ORDER KHANH Final Result [facility] [address] [place] [address], [place] [phone] [id number] * URINALYSIS AUTO DIP (07/15/2024 1:51 PM CDT) COLOR (U) YELLOW YELLOW [facility] [address]), [place] TRANSPARENCY CLEAR CLEAR [facility] (201), [place] GLUCOSE (U) NEGATIVE NEGATIVE MG/DL [facility] (201), [place] BILIRUBIN (U) NEGATIVE NEGATIVE MG-[facility] (201), [place] KETONES MG/DL (U) NEGATIVE NEGATIVE MG/DL [facility] (201), [place] SPECIFIC GRAVITY (U) 1.010 1.001 - 1.035 [facility] (201), [place] BLOOD (U) NEGATIVE NEGATIVE [facility] [address]), [place] U PH 6.5 5.0 - 9.[address] [facility] [address]), [place] PROTEIN (U) NEGATIVE NEGATIVE mg/dL [facility] [address]), [place] UROBILINOGEN 0.2 0.2 - 1.0 EU/dL = mg/dL [facility] (201), [place] NITRITES NEGATIVE NEGATIVE MG/DL [facility] (201), [place] LEUKOCYTES (U) NEGATIVE NEGATIVE [facility] [address]), [place] URINE SPECIMEN OBTAINED BY CLEAN CATCH PROCEDURE / Unknown 07/15/2024 1:51 PM CDT Emerson Watson MD URINE ORDERABLES Final Resul t [facility] (201), [place] [address] [place] [address], * TSH W/REFLEX (07/09/2024 11:53 AM CDT) TSH 1.472 0.358 - 3.74 uIU/ML 07/09/2024 1:07 PM CDT [facility] Comment: HIGH DOSES OF BIOTIN MAY INTERFERE WITH THIS TEST RESULT. CORRELATION TO CLINICAL HISTORY AND PRESENTATION RECOMMENDED. FREE T4 NOT INDICATED 07/09/2024 11:5 3 AM CDT us Emerson Watson MD LABORATORY Final Result [facility] [address] [place] [address], [place] [phone] * HEMOGLOBIN, GLYCOSYLATED (07/09/2024 11:53 AM CDT) HGB A1C 5.5 <5.7 % 07/09/2024 9:15 PM CDT [facility] Comment: ADA GUIDELINES 2010 5.7 TO 6.4% INCREASED RISK OF DIABETES > OR = 6.5% CONSISTENT WITH DIABETES ESTIMATED AVG GLUCOSE 111 mg/dL 07/09/2024 9:15 PM CDT [facility] 07/09/2024 11:5 3 AM CDT us Emerson Watson MD LABORATORY Final Result Performing Organization Address City/[facility]/ZIP Co de Phone Number [facility] [address] [place] [address], [place] [phone] * VITAMIN B-12 (07/09/2024 11:53 AM CDT) VITAMIN B12 S/P/B 457 193 - 986 PG/ML 07/09/2024 1:07 PM CDT [facility] 07/09/2024 11:5 3 AM CDT us Emerson Watson MD LABORATORY Final Result [facility] [address] [place] [address], * LIPID PANEL (07/09/2024 11:53 AM CDT) CHOLESTEROL 146 <200 MG/DL 07/09/2024 1:07 PM CDT [facility] TRIGLYCERIDES 88 <150 MG/DL 07/09/2024 1:07 PM T [facility] HDL 62 >40.0 MG/DL 07/09/2024 1:07 PM T [facility] LDL (CALCULATED) 66 <100 MG/DL 07/10/19 1:07 PM CDT [facility] NON HDL CHOLESTEROL 84 <130 MG/DL 07/09 1:07 PM CDT [facility] Comment: NOTE: WHEN THE TRIGLYCERIDES ARE >200 mg/dL, NON HDL C IS A SECONDARY TARGET OF THERAPY, WITH A GOAL 30 mg/dL HIGHER THAN THE IDENTIFIED LDL C GOAL. CHOL/HDL RATIO 2.4 0.0 - 4.5 07/09/2024 1:07 PM T [facility] VLDL CALCULATION 18 5 - 55 MG/DL 07/09/2024 1:07 PM T [facility] LIPID INTERPRETATION 07/09/2024 1:07 PM T [facility] Comment: NIH CONCENSUS REPORT RECOMMENDATIONS: ADULT CHILD LOW RISK: CHOLESTEROL <200 <170 TRIGLYCERIDE <150 --- HDL >=60 --- LDL <100 <110 BORDERLINE: CHOLESTEROL 200-239 170-199 TRIGLYCERIDE 150-199 --- HDL 40-59 --- LDL 100-159 110-129 HIGH RISK: CHOLESTEROL >=240 >=200 TRIGLYCERIDE >=200 --- HDL <40 --- LDL >=160 >=130 07/09/2024 11:5 3 AM CDT Emerson Watson MD LABORATORY Final Result [facility] [address] [place] [address], [place] [phone] * VITAMIN D, 25 [place] (07/09/2024 11:53 AM CDT) VITAMIN D 25 HYDROXY S/P/B 40 30 - 100 NG/ML 07/09/2024 1:09 PM CDT [facility] Comment: INTERPRETATION DEFICIENT <20 INSUFFICIENT 20-29 SUFFICIENT 30-100 07/09/2024 11:5 3 AM CDT Emerson Watson MD LABORATORY Final Result [facility] [address] [place] [address], [place] [phone] * MAMMOGRAM GENERIC (SCAN ORDER) (06/29/2023) Anatomical [...] 8:34 PM 09/26/2019 8:32 PM Care Teams Dry Press Operator Relationship Specialty Start Date End Date Emerson Watson MD [address] [place] [address] [place] [address] PCP - General FAMILY PRACTICE 08/11/22 Angel Andrade MD [address] [facility] [address] [place] [address] Referring Physician GASTROENTEROLOGY 12/17/20 [place] [address] [place] [address] SURGERY 03/10/23
--- OUTSIDE RECORDS SUMMARY | 2024-10-03 20:23 | XMS_ITS | Encounter Summary ---
Author Organization [facility] Address [address] [place] [address] Care Team Providers Care Bank Manager Name Role Phone Emerson Watson MD Primary [...] on file Legal Sex Female 3:33 AM PERCUSSION TEACHER Gender Identity Not on file Sexual Orientation [...] WITH DIFFERENTIAL (10/03/2006 8:08 AM CDT) Pathologist [facility] WBC 11.0(H) 4.0 - 9.8 K/uL INTERFACE [...] Provider HEMATOLOGY ORDERABLES Edited Performing Organization Address City/State/[facility] Co de Phone Number INTERFACE SYSTEM Refer to clinic/hospital department * (ABNORMAL) CBC WITH DIFFERENTIAL (10/02/2006 12:07 PM CDT) Pathologist [facility] NEUTROPHILS 83(H) 45 - 70 % INTERFAC [...] MD HEMATOLOGY ORDERABLES Edited Performing Organization Address [facility] Phone Number INTERFACE SYSTEM Refer to clinic/hospital [...] AM CDT Ordered by an unspecified provider. [facility] Provider HEMATOLOGY ORDERABLES Edited Performing Organization Address City/[facility] de Phone Number INTERFACE SYSTEM Refer to [...] MD HEMATOLOGY ORDERABLES Edited Performing Organization Address [facility] Co de Phone Number INTERFACE SYSTEM [...] Provider HEMATOLOGY ORDERABLES Edited Performing Organization Address City/[facility] de Phone Number INTERFACE SYSTEM Refer to [...] Provider HEMATOLOGY ORDERABLES Edited Performing Organization Address [facility] Phone Number INTERFACE SYSTEM Refer to clinic/hospital [...] MD HEMATOLOGY ORDERABLES Edited Performing Organization Address City/[facility] Phone Number INTERFACE SYSTEM Refer to clinic/hospital [...] MD HEMATOLOGY ORDERABLES Edited Performing Organization Address [facility] Phone Number INTERFACE SYSTEM Refer to clinic/hospital department * (ABNORMAL) C-REACTIVE PROTEIN (10/01/2006 9:12 PM CDT) CRP 2.1(H) 0.0 - 0.8 mg/dL INTERFACE SYSTEM 10/01/2006 9:12 PM CDT Norris Perdomo MD CHEMISTRY ORDERABLES Edited Performing Organization Address [facility] Phone Number INTERFACE SYSTEM Refer to clinic/hospital [...] and non- Americans is available on the [facility] Intranet at: [email or web address] Select: Lab Policies and Procedures Select: Reference Ranges - GFR 10/01/2006 9:12 PM CDT Norris Perdomo MD CHEMISTRY ORDERABLES Edited Performing Organization Address City/[facility] Co de Phone Number INTERFACE SYSTEM Refer to clinic/hospital department * ED HOLD (10/01/2006 9:12 PM CDT) SPECIMEN HOLD, BLOOD 7 days INTERFACE SYSTEM 10/01/2006 9:12 PM CDT Norris Perdomo MD CHEMISTRY ORDERABLES Edited Performing Organization Address City/[facility] Co de Phone Number INTERFACE SYSTEM Refer to clinic/hospital department documented in this encounter Visit Diagnoses Diagnosis Abdominal pain, unspecified site- Primary documented in this encounter Care Teams Bank Manager Relationship Specialty Start Date End Date Emerson Watson MD [address] [place] [address] [place] [address] PCP - General Family Practice 09/20/22 documented as of this encounter
--- OUTSIDE RECORDS SUMMARY | 2024-10-03 20:23 | XMS_ITS | Referral Summary ---
Author Organization [facility] Address [address] [place] [address] Care Team Providers Care Paperhanger Pipe Name Role Phone Dandre Chavez MD Unavailable [phone] Danielito Irving MD Unavailable [phone] Norm Carrillo MD Primary Care Provider [phone] Allergies Active Allergy Reactions Criticality Noted Date [...] (06/18/2021): Added automatically from request for surgery [id number] Epigastric pain 05/16/2021 Epigastric abdominal pain 12/17/2020 Hepatic steatosis 12/17/2020 Intractable abdominal pain 10/16/2019 Overview (10/24/2019): Added automatically from request for surgery [id number] Gastroesophageal reflux dise ase with esophagitis without [...] (12/18/2020): Added automatically from request for surgery [id number] Acute tonsillitis due to oth er specified organisms 04/07/2018 06/28/2021 Assessment & Plan (04/07/2018 10:02 AM TAX AUDIT MANAGER): Patient demonstrates acute exudate of tonsillitis. Patient was initially seen at [facility] urgent care. I spoke with the provider [...] 07/03/201506/28 Overview (06/30/2016): Has tingling sensation Aldosteronism ([facility]/HCC) 06/29/2015 04/0 06/2021 Overview (07/02/2016): Hyperaldosteronism Fibrositis [...] week 07/06/2021 How often do you attend [facility] or episcopalian services? More than 4 times per year 07/06/2021 Do you belong to any clubs o r organizations such as episcopal groups, unions, fraternal or athletic groups, or [...] on file Legal Sex Female 5:23 PM TAX AUDIT MANAGER Gender Identity Not on file Sexual Orientation Not on file Last Filed Vital Signs Vital Sign Reading Time Taken Comments Blood Pressure 129/87 02/03/2022 5:07 PM TAX AUDIT MANAGER Pulse 60 02/03/2022 5:07 PM TAX AUDIT MANAGER Temperature 36.6 C (97.8 F) 02/03/2022 1:04 PM TAX AUDIT MANAGER Respiratory Rate 16 02/03/2022 5:07 PM TAX AUDIT MANAGER Oxygen Saturation 95% 02/03/2022 5:07 PM TAX AUDIT MANAGER Inhaled Oxygen Concentration - - Weight 103.4 kg (227 lb 15.3 oz) 02/03/2022 1:04 PM TAX AUDIT MANAGER Height 162.6 cm (5' 4) 02/03/2022 1:04 PM TAX AUDIT MANAGER Body Mass Index 39.13 02/03/2022 1:04 PM TAX AUDIT MANAGER Plan of Treatment Not on file Medical Devices Explanted Type Area Cabin Supervisor Device Identifier Shelf Expiration Date Model / Serial / Lot [employer] 6575 Shields Flexi-Stent 7fr 9cm Small Pigtail Flexible .035in Stent - [id number] Implanted:Qty : 1 on 12/18/2020 by Dandre Chavez MD at [facility] Explanted:Qty : 1 on 12/21/2020 by Dandre Chavez MD at [facility] Stent N/A: Pancreas [employer] 07/24/2025 [id number] / / [id number] Conmed Aranza [id number] [place] Viabil 10mm 8.5fr 6cm 200cm Fully Covered Self Expand Pull - [id number] - [id number] Implanted:Qty : 1 on 12/18/2020 by Dandre Chavez MD at [facility] Explanted:Qty : 1 on 12/21/2020 by Dandre Chavez MD at [facility] Stent N/A: Bile Duct Conmed Aranza 01/22/2023 [id number] / [id number] / Conmed Aranza [id number] [employer] Viabil 10mm 8.5fr 6cm 200cm Fully Covered Self Expand Pull - [id number] - [id number] Implanted:Qty : 1 on 10/23/2019 by Dandre Chavez MD at [facility] Explanted:Qty : 1 on 10/25/2019 by Dandre Chavez MD N/A: Bile Duct Conmed Aranza 06/09/2022 [id number] / [id number] / [employer] 6555 Shields Flexi-Stent 5fr 9cm Small Pigtail Flexible .035in Stent - [id number] Implanted:Qty : 1 on 10/23/2019 by Dandre Chavez MD at [facility] Explanted:Qty : 1 on 10/25/2019 by Dandre Chavez MD N/A: Pancreas [employer] 04/26/2024 [id number] / / [id number] Procedures Procedure Name Priority Date/Time Associated Diagnosis Comments COLONOSCOPY REPORT 10/22/2014 SERUM HEPATITIS PANEL Routine 04/26/2012 12:36 PM TAX AUDIT MANAGER from Last 3 Months or Most Recently Relevant to Health Maintenance Results * COLONOSCOPY REPORT (10/22/2014) Anatomical Region Laterality Modality Other Narrative 10/22/2014 Ordered by an unspecified provider. us Historical Provider MD DAVIS PROCEDURE ORDERABLES F inal Result * Serum Hepatitis panel (04/26/2012 12:36 PM TAX AUDIT MANAGER) HBV surface ag NONREAC NONREAC HISTO RICAL [...] THIS TEST. Serum 04/26/2012 12:3 6 PM TAX AUDIT MANAGER Yamilka Oropeza MD LAB BLOOD ORDERABLES Final Result HISTORICAL RESULTS from Last 3 Months or Most Recently Relevant to Health Maintenance Insurance [facility] CHO[facility] PLUS [facility] CHOICE PLUS [place] [id number] Advance Directives For more information, please contact: [phone] * Full Code (Latest Code Status on [...] 7:26 PM 12/17/2020 9:04 PM Care Teams Paperhanger Pipe Relationship Specialty Start Date End Date Norm Carrillo MD [address] [address] PCP - General Internal Medicine 01/06/22 Dandre Chavez MD [address] [facility] [address] [place] [address] Consulting Physician Gastroenterology 10/25/19 Danielito Irving MD [address] [facility] [address] [place] [address] Surgeon General Surgery 07/07/21
--- OUTSIDE RECORDS SUMMARY | 2024-10-03 20:23 | XMS_ITS | Encounter Summary ---
Author Organization [facility] Address [facility] [place] [address] Care Team Providers Care Wire Stitcher Machine Name Role Phone Angel Andrade MD Unavailable [phone] Emerson Watson MD Primary Care Provider [phone] Reji Ramirez MD Unavailable [phone] Encounter Details Date Type Department Care Team (Late st Contact Info) Description 09/19/2023 Lyftt Message Enc [facility] [address] [place] [address] Emerson Watson MD [address] [place] [address] Health Form for Work Social History [...] any clubs o r organizations such as anabaptist groups, unions, fraternal or athletic groups, or [...] Recorded Patient Health Questionnaire-2 Score 0 08/24/2023 [facility] - Occupational [...] in a fci (including now)? No 06/27/2022 Comments No Sex and Gender Information Value Date Recorded Sex Assigned at Female 04/10/2024 11:52 AM CONSULTING SOFTWARE ENGINEER Legal Sex Female 7:00 PM CDT Gender Identity Female 05/08/2024 9:04 PM CONSULTING SOFTWARE ENGINEER Sexual Orientation Straight 05/08/2024 9: 04 PM CONSULTING SOFTWARE ENGINEER documented as of this encounter Functional Status [...] Description 01/21/2025 2:20 PM CDT Office Visit [facility] [address] [place] [address] Emerson Watson MD [address] [place] [address] documented as of this encounter Visit Diagnoses Not on filedocumented in this encounter Additional Health Concerns Infection Onset Date Last Indicated Resolved Time COVID-19 Rule Out 11/24/2023 11/24/2023 11/24/2023 10:13 AM CDT COVID-19 Rule Out 03/22/2024 03/22/2024 03/22/2024 4:59 PM CONSULTING SOFTWARE ENGINEER COVID-19 Rule Out 04/30/2024 04/30/2024 04/30/2024 1:33 PM CONSULTING SOFTWARE ENGINEER Assessment Noted Time PHQ-9 Depression Total Score: 0 02/14/20 12:57 PM CONSULTING SOFTWARE ENGINEER documented as of this encounter Care Teams Wire Stitcher Machine Relationship Specialty Start Date End Date Emerson Watson MD [address] [place] [address] [place] [address] PCP - General FAMILY PRACTICE 08/11/22 Angel Andrade MD [address] [address] Referring Physician GASTROENTEROLOGY 12/17/20 [place] [address], [facility] [place] [address] SURGERY 03/10/23 documented as of this encounter
--- OUTSIDE RECORDS SUMMARY | 2024-10-03 20:23 | XMS_ITS | Encounter Summary ---
Author Organization [facility] Address [address] [place] [address] Care Team Providers Care Program Management Professional Name Role Phone Emerson Watson MD Primary Care Provider Encounter Details Date Type Department Care Team (Late st Contact Info) Description 05/11/2001 Outpatient Historical [facility] [address] [facility] [address] [id number] Henri Pina MD [address] 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
== END | disposition left against medical advice (07) ==
PROVIDERS: PCP Family Medicine
DX: R51.9 Headache, unspecified (principal)
CPT/HCPCS: 99281

== ENCOUNTER 2024-12-14 17:16 | Emergency (ER) | payer OTHER, MEDICAID, SELFPAY ==
--- NOTE | 2024-12-14 17:20 | ED_ITS ---
HPI - Female Genitourinary General Chief complaint: Urogenital-Female Stated complaint: bladder inf Time Seen by Provider: 12/14/24 17:36 Source: patient and RN notes reviewed Mode of arrival: ambulatory Limitations: no limitations History of Present Illness HPI Narrative: 54-year-old female presents with concern for dysuria, frequency, urgency, lower back. She reports incidence of. She denies fever, body aches, chills, sweats. Reports nausea but denies vomiting MD elicited complaint: UTI Related Data Home Medications ?Medication ?Instructions ?Recorded ?Confirmed ?Last Taken ?Type alprazolam 1 mg tablet mg 12/14/24 Unknown History amlodipine 5 mg tablet mg 12/14/24 Unknown History fluoxetine 40 mg capsule mg 12/14/24 Unknown History spironolactone 25 mg tablet mg 12/14/24 Unknown Histo ry trazodone 100 mg tablet mg 12/14/24 Unknown History Allergies Allergy/AdvReac Type Severity Reaction Status Date / Time azithromycin Allergy Unknown Unknown Verified 12/14/24 17:31 codeine Allergy Unknown Unknown Verified 12/14/24 17:31 Sulfa (Sulfonamide Allergy Unknown Unknown Verified 12/14/24 17:31 Antibiotics) tetracycline Allergy Unknown Unknown Verified 12/14/24 17:31 lisinopril AdvReac Intermediate Unknown Verified 12/14/24 17:31 Review of Systems Review of Systems: CONSTITUTIONAL: Denies malaise, chills, sweats, or fever. CARDIOVASCULAR: Denies chest pain, palpitations, or edema. RESPIRATORY: Denies cough or dyspnea. GASTROINTESTINAL: Denies abdominal pain, nausea, vomiting, diarrhea GENITOURINARY: Reports dysuria, frequency, urgency, suprapubic pressure. Denies flank pain or hematuria. SKIN: Denies rash or itching. MUSCULOSKELETAL: Denies back pain or myalgia. All systems reviewed & are unremarkable except as noted in HPI and below PMFSH Comments At time of signature, agree with nursing past medical, surgical, social and family history. There is no relevant family history pertinent to the presenting complaint Exam Narrative: GENERAL: Well-appearing, well-nourished, and in no acute distress. HEAD: Normocephalic. EYES: PERRLA, conjunctivae clear. NECK: Supple. No lymphadenopathy CHEST: Clear to auscultation. No respiratory distress. HEART: Regular rate and rhythm. ABDOMEN: Soft, suprapubic tenderness, otherwise nontender upon palpation, nondistended, no palpable or pulsatile masses, no guarding. No CVA tenderness SKIN: Warm, dry, no rash. NEURO: Alert and oriented x3. PSYCH: Normal mood and affect Course Course Emergency Course: Patient is aware of diagnosis, understands and agrees to treatment plan. Anticipatory guidance given. Patient agrees to follow-up as directed and is aware of reasons to seek care at the emergency department. Portions of this record may have been created with voice recognition software Level of Care: Express Care Visit Vital Signs Vital signs: Reviewed. MDM - Female Genitourinary MDM Narrative Medical decision making narrative: Exam findings and UA show no acute concerns or changes; patient is non-toxic appearing and is in no distress. Patient is appropriate for outpatient treatment and follow-up. Differential Diagnosis Differential diagnosis: Likely urinary tract infection and cystitis Critical Care Time Critical Care Time Critical Care Time: No Discharge Plan Discharge Clinical Impression: Urinary tract infection Patient Disposition: Home Condition: Stable Instructions: Antibiotic Form, Urinary Tract Infection in Women (ED) Additional Instructions: We will send a urine culture to the lab; if the culture identifies an organism that the prescribed antibiotic will not treat, you will receive a phone call from an urgent care staff member and an appropriate antibiotic will be prescribed. -Your symptoms should begin to improve within a day of starting antibiotics. But you should finish all the antibiotic pills you get. Otherwise your infection might come back. -Also recommend: increase water intake. Tylenol/ibuprofen as needed for pain or fever -Follow-up with your primary care provider for urine recheck or seek ER visit if condition worsens with high fever, nausea, vomiting and severe back pain. Patient Language: Palestinian Prescriptions: New phenazopyridine [Pyridium] 200 mg tablet 200 mg PO TID PRN (Reason: pain) Qty: 6 0RF amoxicillin-pot clavulanate 875-125 mg tablet 1 tablet PO Q12H 7 Days Qty: 14 0RF No Action fluoxetine 40 mg capsule alprazolam 1 mg tablet amlodipine 5 mg tablet spironolactone 25 mg tablet trazodone 100 mg tablet hydrocodone-acetaminophen 7.5-325 mg tablet 1 tablet PO Q6H MDD 4 tabs PRN (Reason: pain) 3 Days Qty: 12 0RF metoclopramide HCl [Reglan] 10 mg tablet 10 mg PO Q6H PRN (Reason: nausea and vomiting) Qty: 14 0RF Follow-up/Referrals: Walter,Emerson Fong MD [Primary Care Provider, Unknown] Time of Disposition: 17:46
[2024-12-14 17:32] VITALS: BP 126/82; PULSE 71; RESP 16; TEMP 36.5; O2SAT 100
[2024-12-14 17:44] LABS: EDUAAPPEAR Cloudy; EDUABILI Negative (Negative); EDUABLOOD 2+ (Negative); EDUACOLOR1 Yellow; EDUAGLUCOSE Negative (Negative); EDUAKETONE Negative (Negative); EDUALEUKO Trace (Negative); EDUANITRATE Negative (Negative); EDUAPH 5.5; EDUAPROTEIN Negative (Negative); EDUASPGRAVITY 1.030; EDUAUROBILI 0.2
== END 2024-12-14 17:50 | disposition home or self-care (01) ==
PROVIDERS: Emergency Provider Nurse Practitioner; PCP Family Medicine
DX: N39.0 Urinary tract infection, site not specified (principal); I10 Essential (primary) hypertension; F41.9 Anxiety disorder, unspecified; Z98.84 Bariatric surgery status
CPT/HCPCS: 81003; 87086; 99213; G0463

== ENCOUNTER 2024-12-25 11:10 | Emergency (ER) | payer OTHER, SELFPAY ==
[2024-12-25] VITALS (22 sets, daily range): BP systolic 112–152; BP diastolic 81–95; PULSE 62–73; RESP 10–19; TEMP 36.4; O2SAT 94–100
--- NOTE | ~2024-12-25 | XR_ITS ---
EXAMINATION: XR chest 2V, 12/25/2024 12:18 CDT HISTORY: cp COMPARISON: No comparisons available. Technique: 2 views obtained. Findings: The lungs are clear, no effusion. No pneumothorax. Heart is normal size. Mediastinal and hilar contours are within normal limits. Bony thorax no acute abnormality. Impression: No acute cardiopulmonary abnormality. Reviewed, dictated and finalized at location P. Impression: No acute cardiopulmonary abnormality.
--- NOTE | ~2024-12-25 | CT_ITS ---
Exam: CT chest with contrast Clinical History: [Chest pain. Shortness of breath. ] Comparison: CT abdomen pelvis 05/29/2023 Technique: Multiple axial CT images of the chest with IV contrast. Sagittal and coronal reformatted images were obtained. FINDINGS: Lungs and pleura: [ No pulmonary embolism.] No pleural effusion. No pneumothorax. Small to moderate-sized patchy, groundglass and bandlike opacities in the mid and lower lungs, greater on the right. Mediastinum and pulmonary christina: [ No mass or adenopathy.] Axillary/intramammary and supraclavicular: [ No mass or adenopathy.] Heart and great vessels: [ Normal heart size.[ [ No pericardial effusion.] [ No aneurysm.] Chest Wall: [ Unremarkable.] Upper Abdomen: Cholecystectomy. Prior surgical change about the stomach. Small amount of intrahepatic biliary ductal dilatation similar to the study from 05/29/2023 presumably due to a previous cholecystectomy. Osseous structures: [ No acute fracture or destructive lesion.] [ Multilevel degenerative change in the visualized spine.] Additional findings: [ None of significance.] IMPRESSION: 1. No pulmonary embolism identified. 2. Small to moderate-sized patchy, groundglass and bandlike opacities in the mid and lower lungs, greater on the right. Differential includes atelectasis/scarring and/or an inflammatory or infectious process. 3. Cholecystectomy. Reviewed, dictated and finalized at location Q. IMPRESSION: 1. No pulmonary embolism identified. 2. Small to moderate-sized patchy, groundglass and bandlike opacities in the mi d and lower lungs, greater on the right. Differential includes atelectasis/scar ring and/or an inflammatory or infectious process. 3. Cholecystectomy.
--- NOTE | 2024-12-25 11:14 | ECG_ITS ---
Test Date: 2024-12-25 11:20:50 Measurements Intervals [place] Rate: 61 P: 40 [place]: 135 QRS: -9 QRSD: 94 T: -9 QT: 405 QTc: 410 Interpretive Statements SINUS RHYTHM DELAYED PRECORDIAL R/S TRANSITION VOLTAGE CRITERIA FOR LVH BORDERLINE T WAVE ABNORMALITY- ANT/INF LEADS BASELINE ARTIFACT- I, II, III, AVR, AVL, AVF BORDERLINE ECG No previous ECG available for comparison Electronically Signed On 12-25-2024 11:33:33 CDT by Shubham Quinn D.O.
[2024-12-25 11:37] LABS: Hematocrit 43.7 % (37.0-47.0); Hemoglobin 13.9 g/dL (12.0-15.0); Immature Granulocyte Percent A 0.6 % (0-0.5); Lymphocytes Absolute Auto 1.95 K/mm3 (0.9-3.2); Mean Corpuscular HGB Conc 31.8 g/dl (32-36); Mean Corpuscular Hemoglobin 29.3 pg (26-34); Mean Corpuscular Volume 92.0 fl (80-100); Nucleated Red Blood Cells Absolute Auto 0.000 K/mm3 (0.0-0.012); Nucleated Red Blood Cells Perc 0.0 % (0.0-0.2); Platelet Count Result 282 k/mm3 (150-375); Red Blood Count 4.75 M/mm3 (4.2-5.4); White Blood Count 9.5 K/mm3 (4.5-10.0)
[2024-12-25 11:44] LABS: Add Urine Microscopic? YES; Appearance Urine Turbid (Clear); Glucose Urine UA Negative (Negative); Leukocyte Esterase Ur Negative LEU/UL (Negative); Nitrate Urine Negative (Negative); Non Pathogenic Casts 0-2; Specific Grav Ur 1.019 (1.001-1.035)
[2024-12-25 11:49] LABS: Alanine Aminotransferase 23 U/L (6-35); Albumin Level 4.4 g/dL (3.5-5.1); Alkaline Phosphatase 95 U/L (38-126); Anion Gap 10 mmol/L (4-12); Aspartate Amino Transferase 29 U/L (14-36); Bilirubin,Total 0.6 mg/dL (0.2-1.3); Blood Urea Nitrogen 14 mg/dL (7-17); Calcium 8.9 mg/dL (8.4-10.2); Carbon Dioxide 25 mmol/L (22-30); Chloride 102 mmol/L (98-107); Estimated CRCL calculation 70 ml/min; Estimated Glomerular Filt Rate > 60; Glucose 89 mg/dL (65-110); Lipase 23 U/L (23-300); Potassium 4.0 mmol/L (3.4-5.0); Sodium 137 mmol/L (137-145); Total Protein 7.6 g/dL (6.3-8.2)
--- OUTSIDE RECORDS SUMMARY | 2024-12-25 11:56 | XMS_ITS | Clinical Summary ---
Author Organization [facility] Address [address] [place] [address] Care Team Providers Care Line Out Man Name Role Phone Dandre Chavez MD Unavailable [phone] Danielito Irving MD Unavailable [phone] Norm Carrillo MD Primary Care Provider [phone] Allergies Active Allergy Reactions Criticality Noted Date [...] (06/18/2021): Added automatically from request for surgery [id number] Epigastric pain 05/16/2021 Epigastric abdominal pain 12/17/2020 Hepatic steatosis 12/17/2020 Intractable abdominal pain 10/16/2019 Overview (10/24/2019): Added automatically from request for surgery [id number] Gastroesophageal reflux dise ase with esophagitis without [...] (12/18/2020): Added automatically from request for surgery [id number] Acute tonsillitis due to oth er specified organisms 04/07/2018 06/28/2021 Assessment & Plan (04/07/2018 10:02 AM TAX ADVISOR): Patient demonstrates acute exudate of tonsillitis. Patient was initially seen at [facility] urgent care. I spoke with the [...] 07/03/201506/28 Overview (06/30/2016): Has tingling sensation Aldosteronism ([facility]/HCC) 06/29/2015 04/0 06/2021 Overview (07/02/2016): Hyperaldosteronism Fibrositis [...] pur e alcohol) socially Social Connection and Isolation Panel Answer Date Recorded In a typical week, how many times do you talk on the phone with family, friends, or neighbors? More than three times a week 07/06/2021 How often do you get togethe r with friends or relatives? Once a week 07/06/2021 How often do you attend [facility] or christian services? More than 4 times per year 07/06/2021 Do you belong to any clubs o r organizations such as nondenominational groups, unions, fraternal or athletic groups, or [...] file Legal Sex Female 5:23 PM TAX ADVISOR Gender Identity Not on file Sexual Orientation Not on file Obstetrics History Last Filed Vital Signs Vital Sign Reading Time Taken Comments Blood Pressure 129/87 02/03/2022 5:07 PM TAX ADVISOR Pulse 60 02/03/2022 5:07 PM TAX ADVISOR Temperature 36.6 C (97.8 F) 02/03/2022 1:04 PM TAX ADVISOR Respiratory Rate 16 02/03/2022 5:07 PM TAX ADVISOR Oxygen Saturation 95% 02/03/2022 5:07 PM TAX ADVISOR Inhaled Oxygen Concentration - - Weight 103.4 kg (227 lb 15.3 oz) 02/03/2022 1:04 PM TAX ADVISOR Height 162.6 cm (5' 4) 02/03/2022 1:04 PM TAX ADVISOR Body Mass Index 39.13 02/03/2022 1:04 PM TAX ADVISOR Plan of Treatment Health Maintenance Due Date Last Done Comments Breast Cancer Screening-Mammogram 1969 Hepatitis B Screening 11/05/1987 Pneumococcal vaccine <65 (1 of 2 - PCV) 1988 Zoster Vaccine (1 of 2) 11/05/2019 Depression Screening 01/24/2023 01/24/2022 Regular Well Visit/Exam 18-64 01/24/2023 01/24/2022 Colon Cancer Screening-Colonoscopy 10/22/2024 10/22/2014 Covid-19 Vaccine (4 - 2024-2 6 season) 2024 04/01/2021, 05/15/2020, 04/17/2020 Influenza Vaccine (#1) 2024 , 03/06/2020, 12/24/2015, Additional history exists DTaP/Tdap/Td Vaccine (3 - Td or Tdap) 04/26/2029 04/26/2019, 09/28/2018 Hepatitis C Screening Completed 04/26/2012 Colon Cancer Screening-CT Colonography Discontinued 10/22/2014 Colon Cancer Screening-DNA Stool Discontinued 10/23/19 15 Colon Cancer Screening-FIT Discontinued 10/22/2014 Colon Cancer Screening-Sigmoidoscopy Discontinued 10/22/2014 Medical Devices Explanted Type Area Business Project Manager Device Identifier Shelf Expiration Date Model / Serial / Lot [employer] 6575 Shields Flexi-Stent 7fr 9cm Small Pigtail Flexible .035in Stent - [id number] Implanted:Qty : 1 on 12/18/2020 by Dandre Chavez MD at [facility] Explanted:Qty : 1 on 12/21/2020 by Dandre Chavez MD at [facility] Stent N/A: Pancreas [employer] 07/24/2025 [id number] / / [id number] Conmed Aranza [id number] [place] Viabil 10mm 8.5fr 6cm 200cm Fully Covered Self Expand Pull - [id number] - [id number] Implanted:Qty : 1 on 12/18/2020 by Dandre Chavez MD at [facility] Explanted:Qty : 1 on 12/21/2020 by Dandre Chavez MD at [facility] Stent N/A: Bile Duct Conmed Aranza 01/22/2023 [id number] / [id number] / Conmed Aranza [id number] [place] Viabil 10mm 8.5fr 6cm 200cm Fully Covered Self Expand Pull - [id number] - [id number] Implanted:Qty : 1 on 10/23/2019 by Dandre Chavez MD at [facility] Explanted:Qty : 1 on 10/25/2019 by Dandre Chavez MD N/A: Bile Duct Conmed Aranza 06/09/2022 [id number] / [id number] / [employer] 6555 Shields Flexi-Stent 5fr 9cm Small Pigtail Flexible .035in Stent - [id number] Implanted:Qty : 1 on 10/23/2019 by Dandre Chavez MD at [facility] Explanted:Qty : 1 on 10/25/2019 by Dandre Chavez MD N/A: Pancreas [employer] 04/26/2024 [id number] / / [id number] Procedures Procedure Name Priority Date/Time Associated Diagnosis Comments COLONOSCOPY REPORT 10/22/2014 SERUM HEPATITIS PANEL Routine 04/26/2012 12:36 PM TAX ADVISOR from Last 3 Months or Most Recently Relevant to Health Maintenance Results * COLONOSCOPY REPORT (10/22/2014) Anatomical Region Laterality Modality Other Narrative 10/22/2014 Ordered by an unspecified provider. us Historical Provider GI PROCEDURE ORDERABLES F inal Result * Serum Hepatitis panel (04/26/2012 12:36 PM TAX ADVISOR) HBV surface ag NONREAC NONREAC HISTO RICAL [...] TEST. Serum 04/26/2012 12:3 6 PM TAX ADVISOR Yamilka Oropeza MD LAB BLOOD ORDERABLES Final Result HISTORICAL RESULTS from Last 3 Months or Most Recently Relevant to Health Maintenance Insurance [facility] Address: [address] [place] [address] [facility] Address: [address] [place] [address] Advance Directives For more information, please contact: [phone] * Full Code (Latest Code Status on [...] 7:26 PM 12/17/2020 9:04 PM Care Teams Line Out Man Relationship Specialty Start Date End Date Norm Carrillo MD [address] [facility] [address], [place] [address] PCP - General Internal Medicine 01/06/22 Dandre Chavez MD [address] [facility] [address] [place] [address] Consulting Physician Gastroenterology 10/25/19 Danielito Irving MD [address] [facility] [address] [place] [address] Surgeon General Surgery 07/07/21
--- OUTSIDE RECORDS SUMMARY | 2024-12-25 11:56 | XMS_ITS | Encounter Summary ---
Author Organization [facility] Address [address] [place] [address] Care Team Providers Care Flask Fitter Name Role Phone Emerson Watson MD Primary Care Provider Encounter Details Date Type Department Care Team (Late st Contact Info) Description 09/26/2006 Outpatient Historical HIS PATIENT IN A BED Michel Irby MD [address] [place], [place] [id number] Pelvic Peritoneal Adhesions, Female (Postoperative) (Postinfection) (Primary Dx) Social History Tobacco Use Types Packs/Day Years Used Date Smoking Tobacco: Never Assessed Comments Unknown Sex and Gender Information Value Date Recorded Sex Assigned at Not on file 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
--- OUTSIDE RECORDS SUMMARY | 2024-12-25 11:56 | XMS_ITS | Encounter Summary ---
Author Organization [employer] Address 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 Gender Identity Not on file Sexual [...] WITH DIFFERENTIAL (10/03/2006 8:08 AM CDT) Pathologist [facility] WBC 11.0(H) 4.0 - 9.8 K/uL [...] Provider HEMATOLOGY ORDERABLES Edited Performing Organization Address City/State/[facility] Co de Phone Number INTERFACE SYSTEM Refer to clinic/hospital department * (ABNORMAL) CBC WITH DIFFERENTIAL (10/02/2006 12:07 PM CDT) Pathologist [facility] NEUTROPHILS 83(H) 45 - 70 % [...] MD HEMATOLOGY ORDERABLES Edited Performing Organization Address [facility] Phone Number INTERFACE SYSTEM Refer to clinic/hospital [...] patients with mechanical heart valves or post AR. Pediatric (12 years and under): 1.5 - [...] AM CDT Ordered by an unspecified provider. [facility] Provider HEMATOLOGY ORDERABLES Edited Performing Organization Address City/[facility] de Phone Number INTERFACE SYSTEM Refer [...] MD HEMATOLOGY ORDERABLES Edited Performing Organization Address [facility] Co de Phone Number [...] Provider HEMATOLOGY ORDERABLES Edited Performing Organization Address City/[facility] de Phone Number INTERFACE SYSTEM Refer [...] Provider HEMATOLOGY ORDERABLES Edited Performing Organization Address [facility] Phone Number INTERFACE SYSTEM Refer to clinic/hospital [...] MD HEMATOLOGY ORDERABLES Edited Performing Organization Address City/[facility] Phone Number INTERFACE SYSTEM Refer to clinic/hospital [...] MD HEMATOLOGY ORDERABLES Edited Performing Organization Address [facility] Phone Number INTERFACE SYSTEM Refer to clinic/hospital department * (ABNORMAL) C-REACTIVE PROTEIN (10/01/2006 9:12 PM CDT) CRP 2.1(H) 0.0 - 0.8 mg/dL INTERFACE SYSTEM 10/01/2006 9:12 PM CDT Norris Perdomo MD CHEMISTRY ORDERABLES Edited Performing Organization Address [facility] Phone Number INTERFACE SYSTEM Refer to clinic/hospital [...] and non- Americans is available on the [facility] Intranet at: [email or web address] Select: Lab Policies and Procedures Select: Reference Ranges - GFR 10/01/2006 9:12 PM CDT Norris Perdomo MD CHEMISTRY ORDERABLES Edited Performing Organization Address City/[facility] Co de Phone Number INTERFACE SYSTEM Refer to clinic/hospital department * ED HOLD (10/01/2006 9:12 PM CDT) SPECIMEN HOLD, BLOOD 7 days INTERFACE SYSTEM 10/01/2006 9:12 PM CDT Norris Perdomo MD CHEMISTRY ORDERABLES Edited Performing Organization Address City/[facility] Co de Phone Number INTERFACE SYSTEM Refer to clinic/hospital department documented in this encounter Visit Diagnoses Diagnosis Abdominal pain, unspecified site- Primary documented in this encounter Care Teams Railroad Purchasing Agent Relationship Specialty Start Date End Date Emerson Watson MD [address] [place] [address] [place] [address] PCP - General Family Practice 09/20/22 documented as of this encounter
--- OUTSIDE RECORDS SUMMARY | 2024-12-25 11:56 | XMS_ITS | Clinical Summary ---
Author Organization [employer] Address [address] [place] [address] Care Team Providers Care Activity Therapy Specialist Name Role Phone Emerson Watson MD [...] ions:Postoperat madisyn abdominal pain,SBO (small bowel obstruction) Take 15 mL by mouth every 6 hours as needed for Pain. Max Daily Amount: 60 mL 280 mL 3 Active Active Problems Patient Care Coordination No te Formatting of this note migh t be different from the original. 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 Gender Identity Not on file Sexual Orientation [...] 04/26/2019, 09/28/2018 Medical Devices Implanted Type Area Cash Room Clerk Device Identifier Shelf Expiration Date Model / Serial / Lot Seamguard Endogia 60 Prpl [id number] - [id number] Implanted:Qt y: 1 on 09/26/2022 by Reji Ramirez MD at [facility] N/A: Stomach [employer] [id number] 05/14/2025 12BSGTRI 60P / / [id number] Seamguard Endogia 60 Blk [id number] - [id number] Implanted:Qt y: 1 on 09/26/2022 by Reji Ramirez MD at [facility] N/A: Stomach [employer] [id number] 03/01/2025 12BSGTRI 60B / / [id number] Seamguard Endogia 60 Blk [id number] - [id number] Implanted:Qt y: 1 on 09/26/2022 by Reji Ramirez MD at [facility] N/A: Stomach [employer] [id number] 03/01/2025 12BSGTRI 60B / / [id number] Seamguard Endogia 60 Prpl [id number] - [id number] Implanted:Qt y: 1 on 09/26/2022 by Reji Ramirez MD at [facility] N/A: Stomach [employer] [id number] 05/14/2025 12BSGTRI 60P / / [id number] Seamguard Endogia 60 Prpl [id number] - [id number] Implanted:Qt y: 1 on 09/26/2022 by Reji Ramirez MD at [facility] N/A: Stomach [employer] [id number] 05/14/2025 12BSGTRI 60P / / [id number] Procedures Procedure Name Priority Date/Time Associated Diagnosis [...] ASSESSMENT: BI-RADS CATEGORY 1: Negative DICTATION LOCATION: [facility] Narrative 07/16/2020 7:15 AM CDT BILATERAL DIAGNOSTIC DIGITAL MAMMOGRAM WITH 3D TOMOSYNTHESIS AND CAD AND LIMITED RIGHT BREAST SONOGRAM DATE: 07/15/2020 1:01 PM HISTORY: Abnormal outside CT report right breast. TECHNIQUE: A bilateral diagnostic tomogram was performed and is compared to outside studies from [facility] dated 09/21/2007. Low Dose full field [...] and is compared to outside studies from [facility] dated 09/21/2007. Low Dose full field [...] ASSESSMENT: BI-RADS CATEGORY 1: Negative DICTATION LOCATION: [facility] us Aleah Peraza MD MAMMO ORDERABLES Final Result from Last 3 Months or Most Recently Relevant to Health Maintenance Insurance [facility] OPTIONS PPO [id number] RX [employer] RX Member Subscriber Plan / Payer (Ef fective 2022-Present) Name:Rose Guallpa Relation to Subscriber:Spouse Payer ID:Not on file Group ID:[id number] Type:RX Commercial Address: [address] RX AGUILAR PLANS (INTERNAL) [facility] Internal Plans Advance Directives For more information, please contact: [phone] * Full Code (Latest Code Status on File) Date Activated Date Inactivated Comments 09/30/2022 1:24 AM 09/30/2022 7:01 PM * Full Code Date Activated Date Inactivated Comments 09/26/2022 3:36 PM 09/28/2022 9:04 PM * Full Code Date Activated Date Inactivated Comments 09/26/2022 8:56 AM 09/26/2022 3:36 PM * Full Code Date Activated Date Inactivated Comments 09/01/2022 11:32 AM 09/01/2022 5:31 PM Care Teams Activity Therapy Specialist Relationship Specialty Start Date End Date Emerson Watson MD [address] [place] [address] [place] [address] PCP - General Family Practice 09/20/22
--- OUTSIDE RECORDS SUMMARY | 2024-12-25 11:56 | XMS_ITS | Encounter Summary ---
Author Organization [employer] Address [address] [place] [address] Care Team Providers Care Private Branch Exchange Service Advisor Name Role Phone Emerson Watson MD Primary Care Provider [phone] Encounter Details Date Type Department Care Team (Latest Contact Info) Description 05/11/2001 Outpatient Historical [facility] Henri Chris MD [address] [facility] [address] [place] [address] HEART DISEASE NOS (Primary Dx) Social History Tobacco Use Types Packs/Day Years Used Date Smoking Tobacco: Never Assessed Comments Unknown Sex and Gender Information Value Date Recorded Sex Assigned at Not on file Legal Sex Female 3:33 AM 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
--- OUTSIDE RECORDS SUMMARY | 2024-12-25 11:56 | XMS_ITS | Encounter Summary ---
Author Organization [facility] Address [address] [place] [address] Care Team Providers Care Loaf Counter Name Role Phone Emerson Watson MD Primary Care Provider [phone] Encounter Details Date Type Department Care Team (Late st Contact Info) Description 05/11/[address] [facility] [address] [facility] [address] [address] Henri Pina MD [address] 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
--- OUTSIDE RECORDS SUMMARY | 2024-12-25 11:56 | XMS_ITS | Encounter Summary ---
Author Organization [employer] Address 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 Gender Identity Not on file Sexual Orientation [...] Negative INTERFACE SYSTEM 01/13/2005 8:30 AM CDT [facility] [employer] URINE ORDERABLES Final Result Performing Organization Address [facility] Phone Number INTERFACE SYSTEM Refer to clinic/hospital department * URINALYSIS WITH REFLEX CULTURE (01/13/2005 8:30 AM CDT) Pathologist [facility] URINE CULTURE ORDER Not indicated INTERFACE SYSTEM Comment: Criteria for a reflex culture include one or more of the following: Abn ormal nitrite, leukocyte esterase, WBCs or RBCs. Lack of qualifying criteria does not exclude the possiblity of a urinary tract infection. Dilute urine, drug interference, etc. may decrease the sensitivity of the criteria analytes. 01/13/2005 8:30 AM CDT [facility] [employer] URINE ORDERABLES Final Result Performing Organization Address [facility] Phone Number INTERFACE SYSTEM [...] ORDERABLES Final R esult Performing Organization Address City/[facility] Co de Phone Number INTERFACE [...] ORDERABLES Final R esult Performing Organization Address City/[facility] Co de Phone Number INTERFACE SYSTEM Refer to clinic/hospital department * POC , URINE (01/12/2005 8:20 AM CDT) HCG QUAL URINE Negative Negative INTER FACE SYSTEM SPECIFIC GRAVITY UA 1.015 1.001 - 1.035 INTERFACE SYSTEM 01/12/2005 8:20 AM CDT Michel Irby MD POINT OF CARE TESTING Final R esult Performing Organization Address [facility] Phone Number INTERFACE SYSTEM [...] ORDERABLES Final Re sult Performing Organization Address [facility] Phone Number INTERFACE SYSTEM Refer to clinic/hospital department * HEMOGLOBIN AND HEMATOCRIT (01/12/2005 8:05 AM CDT) HEMOGLOBIN 14.2 11.8 - 14.8 g/dL INTERFACE SYSTEM HEMATOCRIT 42.8 35.5 - 44.0 % INTERFACE SYSTEM 01/12/2005 8:05 AM CDT Michel Irby MD HEMATOLOGY ORDERABLES Final R esult Performing Organization Address [facility] Phone Number INTERFACE SYSTEM Refer to clinic/hospital department documented in this encounter Visit Diagnoses Diagnosis Dysmenorrhea- Primary documented in this encounter Care Teams Licensed Reactor Operator Relationship Specialty Start Date End Date Emerson Watson MD [address] [place] [address] [place] [address] PCP - General Family Practice 09/20/22 documented as of this encounter
--- OUTSIDE RECORDS SUMMARY | 2024-12-25 11:56 | XMS_ITS | Encounter Summary ---
Author Organization [employer] Address 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
[2024-12-25 12:00] LABS: Troponin I < 0.012 ng/mL (0.000-0.034)
--- NOTE | 2024-12-25 12:06 | ED_ITS ---
HPI - General Adult General Chief complaint: Chest Pain Stated complaint: Right chest pain-worse with deep breaths Time Seen by Provider: 12/25/24 11:25 History of Present Illness HPI narrative: 54-year-old female presenting to the emergency department for evaluation for worsening epigastric and right upper quadrant pain. Patient reports the pain initially started bothering her on Monday began as a substernal/ epigastric pain. Patient reports since that time it has spread to the right upper quadrant. Patient states pain is worse when she takes a deep breath. Patient describes the pain as sharp. Patient states the pain does radiate to her back as well. Patient denies any prior cardiac history. Patient denies any prior history of PE or DVT. Patient is not on any control or hormone replacement. Patient denies any prior history of cancer. Patient denies any recent falls or injuries and patient denies any recent coughs colds or fevers. Patient did have an outpatient x-ray at the urgent care and was referred to the emergency department for further evaluation. Related Data Home Medications ?Medication ?Instructions ?Recorded ?Confirmed ?Last Taken ?Type alprazolam 1 mg tablet mg 12/14/24 Unknown History amlodipine 5 mg tablet mg 12/14/24 Unknown History fluoxetine 40 mg capsule mg 12/14/24 Unknown History spironolactone 25 mg tablet mg 12/14/24 Unknown Histo ry trazodone 100 mg tablet mg 12/14/24 Unknown History Allergies Allergy/AdvReac Type Severity Reaction Status Date / Time azithromycin Allergy Unknown Unknown Verified 12/25/24 11:14 codeine Allergy Unknown Unknown Verified 12/25/24 11:14 Sulfa (Sulfonamide Allergy Unknown Unknown Verified 12/25/24 11:14 Antibiotics) tetracycline Allergy Unknown Unknown Verified 12/25/24 11:14 lisinopril AdvReac Intermediate Unknown Verified 12/25/24 11:14 Review of Systems 2 Review of Systems: All systems reviewed & are unremarkable except as noted in HPI and below Exam 2 Narrative: APPEARANCE: Well appearing, no pain, no distress, well-nourished. HEAD: normocephalic, atraumatic. EYES: PERRLA/EOMI, conjunctivae clear. NOSE: Normal no drainage EARS:TMS clear with good light reflex. THROAT: Pharynx clear, no exudate. NECK: Supple. No adenopathy, no masses. RESPIRATORY: Airway patent, respirations nonlabored. Clear to auscultation bilaterally, no rales, rhonchi, wheezing. CARDIOVASCULAR: Regular rate and rhythm without murmurs rubs or gallops. ABDOMINAL: Soft, nontender, nondistended, normal bowel sounds MUSCULOSKELETAL: right upper quadrant tenderness to palpation at the level of the lower ribs NEURO: Alert. Cranial nerves II through XII intact. Grossly intact SKIN: Warm, dry. Normal Color Course Vital Signs Vital signs: Vital Signs Temperature 97.6 F 12/25/24 11:15 Pulse Rate 72 12/25/24 11:15 Respiratory Rate 17 12/25/24 11:15 Blood Pressure 138/92 H 12/25/24 11:15 Pulse Oximetry 96 12/25/24 11:15 Temperature 97.6 F 12/25/24 11:15 Pulse Rate 68 12/25/24 13:31 Respiratory Rate 16 12/25/24 13:31 Blood Pressure 130/87 12/25/24 13:31 Pulse Oximetry 99 12/25/24 15:46 Medical Decision Making [facility] Narrative Medical decision making narrative: 54-year-old female present to the emergency department for evaluation for right upper quadrant /right lower rib pain. Patient is afebrile with no leukocytosis hemoglobin of 13.9. Patient has an INR of 1.0. No acute abnormalities on her CMP with normal T bili AST ALT and alk-phos. Patient's lipase was also negative. Urine was negative for infection but did have 3-5 red blood cells. Chest x-ray shows no acute cardiopulmonary abnormality. CTA was ordered and does show concern for possible underlying inflammatory versus infectious changes as at the right lower lung. Patient was started on antibiotics for concern for pneumonia. This could be the underlying cause of her pleuritic type of chest pain. Patient was initially treated with 1 mg of IV Dilaudid and patient was going to be treated with additional Toradol after the results of the imaging but patient declined the Toradol stating it does not work for her. Patient was treated with p.o. [place] at that time. Patient was advised to take Tylenol and ibuprofen for pain control at home and patient was educated on the benefits of scheduled anti-inflammatories with the treatment of pleuritic chest pain. Patient was started on Levaquin for pneumonia due to her underlying antibiotic allergies. Differential Diagnosis Differential Diagnosis: Pneumonia, ACS, pulmonary embolism, acute cholecystitis, colitis, diverticulitis, COVID, RSV, influenza, rib fracture, kidney stone, ureteral calculi Vital Signs Vital Signs: Vital Signs Temperature 97.6 F 12/25/24 11:15 Pulse Rate 72 12/25/24 11:15 Respiratory Rate 17 12/25/24 11:15 Blood Pressure 138/92 H 12/25/24 11:15 Pulse Oximetry 96 12/25/24 11:15 Temperature 97.6 F 12/25/24 11:15 Pulse Rate 68 12/25/24 13:31 Respiratory Rate 16 12/25/24 13:31 Blood Pressure 130/87 12/25/24 13:31 Pulse Oximetry 99 12/25/24 15:46 Lab Data Lab results reviewed: Yes I reviewed the patient's lab results. 12/25/24 11:22 12/25/24 11:21 Labs: Lab Results 12/25/24 12/25/24 12/25/24 Range/Units 11:21 11:22 14:19 WBC 9.5 (4.5-10.0) K/mm3 RBC 4.75 (4.2-5.4) M/mm3 Hgb 13.9 (12.0-15.0) g/dL Hct 43.7 (37.0-47.0) % MCV 92.0 (80-100) fl MCH 29.3 (26-34) pg MCHC 31.8 L (32-36) g/dl RDW 13.2 (11.5-14.5) % Plt Count 282 (150-375) k/mm3 MPV 8.2 (7.4-10.4) fl Immature Gran % (Auto) 0.6 H (0-0.5) % Neut % (Auto) 71.4 (45.5-73.1) % Lymph % (Auto) 20.5 (18.3-44.2) % Kemper % (Auto) 6.5 (2.6-8.5) % Eos % (Auto) 0.5 (0-4.4) % Baso % (Auto) 0.5 (0.2-1.2) % Lymph # (Auto) 1.95 (0.9-3.2) K/mm3 Kemper # (Auto) 0.6 (0.1-0.6) K/mm3 Eos # (Auto) 0.1 (0-0.3) K/mm3 Baso # (Auto) 0.1 (0.0-0.1) K/mm3 Abs Immat Gran (auto) 0.06 H (0.00-0.031) K/mm3 Absolute Neuts (auto) 6.8 H (1.3-6.7) K/mm3 Absolute Nucleated RBC 0.000 (0.0-0.012) K/mm3 Nucleated RBC % 0.0 (0.0-0.2) % PT 12.7 (11.1-14.7) Seconds INR 1.0 APTT 24.8 (22.3-36.8) Seconds Sodium 137 (137-145) mmol/L Potassium 4.0 (3.4-5.0) mmol/L Chloride 102 (98-107) mmol/L Carbon Dioxide 25 (22-30) mmol/L Anion Gap 10 (4-12) mmol/L BUN 14 (7-17) mg/dL Creatinine 0.67 L (0.7-1.0) mg/dL Estim Creat Clear Calc 70 ml/min Estimated GFR > 60 (59 - ) Glucose 89 (65-110) mg/dL Calcium 8.9 (8.4-10.2) mg/dL Total Bilirubin 0.6 (0.2-1.3) mg/dL AST 29 (14-36) U/L ALT 23 (6-35) U/L Alkaline Phosphatase 95 (38-126) U/L Troponin I < 0.012 < 0.012 (0.000-0.034) ng/mL Total Protein 7.6 (6.3-8.2) g/dL Albumin 4.4 (3.5-5.1) g/dL Lipase 23 (23-300) U/L Urine Color Yellow (Yellow) Urine Appearance Turbid H (Clear) Urine pH 8.0 (5.0-9.0) Ur Specific Bigelow 1.019 (1.001-1.035) Urine Protein Negative (Negative) mg/dL Urine Glucose (UA) Negative (Negative) mg/dL Urine Ketones Negative (Negative) mg/dL Ur Blood (Man) Negative (Negative) Urine Nitrate Negative (Negative) Urine Bilirubin Negative (Negative) Urine Urobilinogen 1.0 (<2.0) mg/dL Leukocyte Esterase Rfl Negative (Negative) ARVIN/UL Urine RBC 3-5 H (0-2) /hpf Urine WBC 0-5 (0-3) /hpf Ur Squamous Epith Cells None seen (Few) /hpf Urine Bacteria None seen /hpf Urine Casts 0-2 Imaging Data Radiologist's impression: Impressions Chest CTA 12/25/24 12:15 IMPRESSION: 1. No pulmonary embolism identified. 2. Small to moderate-sized patchy, groundglass and bandlike opacities in the mid and lower lungs, greater on the right. Differential includes atelectasis/scarring and/or an inflammatory or infectious process. 3. Cholecystectomy. Chest X-Ray 12/25/24 12:24 Impression: No acute cardiopulmonary abnormality. Discharge Plan Discharge Clinical Impression: Atypical chest pain, Pneumonia Patient Disposition: Home Condition: Stable Instructions: Antibiotic Form, Pneumonia (ED) Additional Instructions: Antibiotic as directed until completed. Tylenol and ibuprofen for pain control. Have close follow-up with your primary care physician. Patient Language: Czech Prescriptions: New levofloxacin 750 mg tablet 750 mg PO DAILY 7 Days Qty: 7 0RF No Action fluoxetine 40 mg capsule alprazolam 1 mg tablet amlodipine 5 mg tablet spironolactone 25 mg tablet trazodone 100 mg tablet phenazopyridine [Pyridium] 200 mg tablet 200 mg PO TID PRN (Reason: pain) Qty: 6 0RF amoxicillin-pot clavulanate 875-125 mg tablet 1 tablet PO Q12H 7 Days Qty: 14 0RF hydrocodone-acetaminophen 7.5-325 mg tablet 1 tablet PO Q6H MDD 4 tabs PRN (Reason: pain) 3 Days Qty: 12 0RF metoclopramide HCl [Reglan] 10 mg tablet 10 mg PO Q6H PRN (Reason: nausea and vomiting) Qty: 14 0RF Follow-up/Referrals: Walter,Emerson Fong MD [Primary Care Provider, Unknown] Quality HEART score for chest pain patients History: slightly suspicious ECG: normal Age: > 45 and < 65 years Risk factors: 1 or 2 risk factors Troponin: < or = to 1x normal limit Heart score: 2
[2024-12-25 12:08] LABS: INR 1.0; Prothrombin Time 12.7 Seconds (11.1-14.7)
[2024-12-25] MEDS: HYDROmorphone HCL INJ (*CRX) 1 MG/ML SYR 0.5 MG IV PUSH (12:11)
[2024-12-25 12:18] LABS: Partial Thromboplastin Time 24.8 Seconds (22.3-36.8)
--- OUTSIDE RECORDS SUMMARY | 2024-12-25 12:22 | XMS_ITS | Clinical Summary ---
Author Organization [employer] Address 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 Gender Identity Not on file Sexual Orientation [...] 04/26/2019, 09/28/2018 Medical Devices Implanted Type Area Power Washer Device Identifier Shelf Expiration Date Model / Serial / Lot Seamguard Endogia 60 Prpl [id number] - [id number] Implanted:Qt y: 1 on 09/26/2022 by Reji Ramirez MD at [facility] N/A: Stomach [employer] [id number] 05/14/2025 12BSGTRI 60P / / [id number] Seamguard Endogia 60 Blk [id number] - [id number] Implanted:Qt y: 1 on 09/26/2022 by Reji Ramirez MD at [facility] N/A: Stomach [employer] [id number] 03/01/2025 12BSGTRI 60B / / [id number] Seamguard Endogia 60 Blk [id number] - [id number] Implanted:Qt y: 1 on 09/26/2022 by Reji Ramirez MD at [facility] N/A: [employer]om[employer] [id number] 03/01/2025 12BSGTRI 60B / / [id number] Seamguard Endogia 60 Prpl [id number] - [id number] Implanted:Qt y: 1 on 09/26/2022 by Reji Ramirez MD at [facility] N/A: Stomach [employer] [id number] 05/14/2025 12BSGTRI 60P / / [id number] Seamguard Endogia 60 Prpl [id number] - [id number] Implanted:Qt y: 1 on 09/26/2022 by Reji Ramirez MD at [facility] N/A: Stomach [employer] [id number] 05/14/2025 12BSGTRI 60P / / [id number] Procedures Procedure Name Priority Date/Time Associated Diagnosis [...] ASSESSMENT: BI-RADS CATEGORY 1: Negative DICTATION LOCATION: [facility] Narrative 07/16/2020 7:15 AM CDT BILATERAL DIAGNOSTIC DIGITAL MAMMOGRAM WITH 3D TOMOSYNTHESIS AND CAD AND LIMITED RIGHT BREAST SONOGRAM DATE: 07/15/2020 1:01 PM HISTORY: Abnormal outside CT report right breast. TECHNIQUE: A bilateral diagnostic tomogram was performed and is compared to outside studies from [facility] dated 09/21/2007. Low Dose full field [...] and is compared to outside studies from [facility] dated 09/21/2007. Low Dose full field [...] ASSESSMENT: BI-RADS CATEGORY 1: Negative DICTATION LOCATION: [facility] us Aleah Peraza MD MAMMO ORDERABLES Final Result from Last 3 Months or Most Recently Relevant to Health Maintenance Insurance [facility] OPTIONS PPO [id number] RX OPTUM RX Member Subscriber Plan / Payer (Ef fective 2022-Present) Name:Rose Guallpa Relation to Subscriber:Spouse Payer ID:Not on file Group ID:[id number] Type:RX Commercial Address: [place] RX AGUILAR PLANS (INTERNAL) [facility] Internal Plans Advance Directives For more information, please contact: [phone] * Full Code (Latest Code Status on File) Date Activated Date Inactivated Comments 09/30/2022 1:24 AM 09/30/2022 7:01 PM * Full Code Date Activated Date Inactivated Comments 09/26/2022 3:36 PM 09/28/2022 9:04 PM * Full Code Date Activated Date Inactivated Comments 09/26/2022 8:56 AM 09/26/2022 3:36 PM * Full Code Date Activated Date Inactivated Comments 09/01/2022 11:32 AM 09/01/2022 5:31 PM Care Teams Neuropsychiatric Aide Relationship Specialty Start Date End Date Emerson Watson MD [address] [place] [address] [place] [address] PCP - General Family Practice 09/20/22
--- OUTSIDE RECORDS SUMMARY | 2024-12-25 12:22 | XMS_ITS | Encounter Summary ---
Author Organization [employer] Address [address] [place] [address] Care Team Providers Care Double Bass Player Name Role Phone Emerson Watson MD Primary Care Provider [phone] Encounter Details Date Type Department Care Team (Late st Contact Info) Description 09/26/2006 Outpatient Historical [facility] PATIENT IN A BED Michel Irby MD [address] [place], [place] [id number] Pelvic Peritoneal Adhesions, Female (Postoperative) (Postinfection) (Primary Dx) Social History Tobacco Use Types Packs/Day Years Used Date Smoking Tobacco: Never Assessed Comments Unknown Sex and Gender Information Value Date Recorded Sex Assigned at Not on file 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
--- OUTSIDE RECORDS SUMMARY | 2024-12-25 12:22 | XMS_ITS | Encounter Summary ---
Author Organization [employer] Address 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
--- OUTSIDE RECORDS SUMMARY | 2024-12-25 12:22 | XMS_ITS | Encounter Summary ---
Author Organization [facility] Address [address] [place] [address] Care Team Providers Care Quality Engineer Name Role Phone Emerson Watson MD Primary Care Provider [phone] Encounter Details Date Type Department Care Team (Late st Contact Info) Description 05/11/2001 Outpatient Historical [facility] [address] [address] Henri Pina MD [address] 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
--- OUTSIDE RECORDS SUMMARY | 2024-12-25 12:22 | XMS_ITS | Encounter Summary ---
Author Organization [employer] Address 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
--- OUTSIDE RECORDS SUMMARY | 2024-12-25 12:22 | XMS_ITS | Encounter Summary ---
Author Organization [employer] Address 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 Gender Identity Not on file Sexual Orientation [...] WITH DIFFERENTIAL (10/03/2006 8:08 AM CDT) Pathologist [facility] WBC 11.0(H) 4.0 - 9.8 K/uL INTERFACE [...] Provider HEMATOLOGY ORDERABLES Edited Performing Organization Address City/State/[facility] Co de Phone Number INTERFACE SYSTEM Refer to clinic/hospital department * (ABNORMAL) CBC WITH DIFFERENTIAL (10/02/2006 12:07 PM CDT) Pathologist [facility] NEUTROPHILS 83(H) 45 - 70 % INTERFAC [...] MD HEMATOLOGY ORDERABLES Edited Performing Organization Address [facility] Phone Number INTERFACE SYSTEM Refer to [...] patients with mechanical heart valves or post CA. Pediatric (12 years and under): 1.5 - [...] AM CDT Ordered by an unspecified provider. [facility] Provider HEMATOLOGY ORDERABLES Edited Performing Organization Address City/[facility] de Phone Number INTERFACE SYSTEM Refer to [...] MD HEMATOLOGY ORDERABLES Edited Performing Organization Address [facility] Co de Phone Number INTERFACE SYSTEM [...] Provider HEMATOLOGY ORDERABLES Edited Performing Organization Address City/[facility] de Phone Number INTERFACE SYSTEM Refer to [...] Provider HEMATOLOGY ORDERABLES Edited Performing Organization Address [facility] Phone Number INTERFACE SYSTEM Refer to [...] MD HEMATOLOGY ORDERABLES Edited Performing Organization Address City/[facility] Phone Number INTERFACE SYSTEM Refer to [...] MD HEMATOLOGY ORDERABLES Edited Performing Organization Address [facility] Phone Number INTERFACE SYSTEM Refer to clinic/hospital department * (ABNORMAL) C-REACTIVE PROTEIN (10/01/2006 9:12 PM CDT) CRP 2.1(H) 0.0 - 0.8 mg/dL INTERFACE SYSTEM 10/01/2006 9:12 PM CDT Norris Perdomo MD CHEMISTRY ORDERABLES Edited Performing Organization Address [facility] Phone Number INTERFACE SYSTEM Refer to [...] and non- Americans is available on the [facility] Intranet at: [email or web address] Select: Lab Policies and Procedures Select: Reference Ranges - GFR 10/01/2006 9:12 PM CDT Norris Perdomo MD CHEMISTRY ORDERABLES Edited Performing Organization Address City/[facility] Co de Phone Number INTERFACE SYSTEM Refer to clinic/hospital department * ED HOLD (10/01/2006 9:12 PM CDT) SPECIMEN HOLD, BLOOD 7 days INTERFACE SYSTEM 10/01/2006 9:12 PM CDT Norris Perdomo MD CHEMISTRY ORDERABLES Edited Performing Organization Address City/[facility] Co de Phone Number INTERFACE SYSTEM Refer to clinic/hospital department documented in this encounter Visit Diagnoses Diagnosis Abdominal pain, unspecified site- Primary documented in this encounter Care Teams Cork Painter And Grader Relationship Specialty Start Date End Date Emerson Watson MD [address] [place] [address] [place] [address] PCP - General Family Practice 09/20/22 documented as of this encounter
--- OUTSIDE RECORDS SUMMARY | 2024-12-25 12:22 | XMS_ITS | Encounter Summary ---
Author Organization [employer] Address 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 Phone Number INTERFACE SYSTEM Refer to clinic/hospital department * URINALYSIS WITH REFLEX CULTURE (01/13/2005 8:30 AM CDT) Pathologist [facility] URINE CULTURE ORDER Not indicated INTERFACE SYSTEM Comment: Criteria for a reflex culture include one or more of the following: Abn ormal nitrite, leukocyte esterase, WBCs or RBCs. Lack of qualifying criteria does not exclude the possiblity of a urinary tract infection. Dilute urine, drug interference, etc. may decrease the sensitivity of the criteria analytes. 01/13/2005 8:30 AM CDT [employer] URINE ORDERABLES Final Result Performing Organization Address [facility] Phone Number INTERFACE SYSTEM Refer [...] ORDERABLES Final R esult Performing Organization Address City/[facility] Co de Phone Number INTERFACE [...] ORDERABLES Final R esult Performing Organization Address City/[facility] Co de Phone Number INTERFACE SYSTEM Refer to clinic/hospital department * POC , URINE (01/12/2005 8:20 AM CDT) HCG QUAL URINE Negative Negative INTER FACE SYSTEM SPECIFIC GRAVITY UA 1.015 1.001 - 1.035 INTERFACE SYSTEM 01/12/2005 8:20 AM CDT Michel Irby MD POINT OF CARE TESTING Final R esult Performing Organization Address [facility] Phone Number INTERFACE SYSTEM Refer [...] ORDERABLES Final Re sult Performing Organization Address [facility] Phone Number INTERFACE SYSTEM Refer to clinic/hospital department * HEMOGLOBIN AND HEMATOCRIT (01/12/2005 8:05 AM CDT) HEMOGLOBIN 14.2 11.8 - 14.8 g/dL INTERFACE SYSTEM HEMATOCRIT 42.8 35.5 - 44.0 % INTERFACE SYSTEM 01/12/2005 8:05 AM CDT Michel Irby MD HEMATOLOGY ORDERABLES Final R esult Performing Organization Address [facility] Phone Number INTERFACE SYSTEM Refer to clinic/hospital department documented in this encounter Visit Diagnoses Diagnosis Dysmenorrhea- Primary documented in this encounter Care Teams Transformation Specialist Relationship Specialty Start Date End Date Emerson Watson MD [address] [place] [address] [place] [address] PCP - General Family Practice 09/20/22 documented as of this encounter
--- OUTSIDE RECORDS SUMMARY | 2024-12-25 12:22 | XMS_ITS | Clinical Summary ---
Author Organization [facility] Address [address] [place] [address] Care Team Providers Care Gauger Chief Name Role Phone Dandre Chavez MD Unavailable [phone] Danielito Irving MD Unavailable [phone] Norm Carrillo MD Primary Care Provider [phone] Allergies Active Allergy Reactions Criticality Noted Date [...] (06/18/2021): Added automatically from request for surgery [id number] Epigastric pain 05/16/2021 Epigastric abdominal pain 12/17/2020 Hepatic steatosis 12/17/2020 Intractable abdominal pain 10/16/2019 Overview (10/24/2019): Added automatically from request for surgery [id number] Gastroesophageal reflux dise ase with esophagitis without [...] (12/18/2020): Added automatically from request for surgery [id number] Acute tonsillitis due to oth er specified organisms 04/07/2018 06/28/2021 Assessment & Plan (04/07/2018 10:02 AM POLICE OFFICER BOOKING): Patient demonstrates acute exudate of tonsillitis. Patient [...] 07/03/201506/28 Overview (06/30/2016): Has tingling sensation Aldosteronism ([facility]) 06/29/2015 04/0 06/2021 Overview (07/02/2016): Hyperaldosteronism Fibrositis [...] week 07/06/2021 How often do you attend [facility] or [facility]? More than 4 times per year 07/06/2021 Do you belong to any clubs o r organizations such as jehovah's witness groups, unions, fraternal or athletic groups, or [...] on file Legal Sex Female 5:23 PM POLICE OFFICER BOOKING Gender Identity Not on file Sexual Orientation Not on file Obstetrics History Last Filed Vital Signs Vital Sign Reading Time Taken Comments Blood Pressure 129/87 02/03/2022 5:07 PM POLICE OFFICER BOOKING Pulse 60 02/03/2022 5:07 PM POLICE OFFICER BOOKING Temperature 36.6 C (97.8 F) 02/03/2022 1:04 PM POLICE OFFICER BOOKING Respiratory Rate 16 02/03/2022 5:07 PM POLICE OFFICER BOOKING Oxygen Saturation 95% 02/03/2022 5:07 PM POLICE OFFICER BOOKING Inhaled Oxygen Concentration - - Weight 103.4 kg (227 lb 15.3 oz) 02/03/2022 1:04 PM POLICE OFFICER BOOKING Height 162.6 cm (5' 4) 02/03/2022 1:04 PM POLICE OFFICER BOOKING Body Mass Index 39.13 02/03/2022 1:04 PM POLICE OFFICER BOOKING Plan of Treatment Health Maintenance Due Date [...] Discontinued 10/22/2014 Medical Devices Explanted Type Area Network Architect Device Identifier Shelf Expiration Date Model / Serial / Lot [employer] 6575 Shields Flexi-Stent 7fr 9cm Small Pigtail Flexible .035in Stent - [id number] Implanted:Qty : 1 on 12/18/2020 by Dandre Chavez MD at [facility] Explanted:Qty : 1 on 12/21/2020 by Dandre Chavez MD at [facility] Stent N/A: Pancreas [employer] 07/24/2025 [id number] / / [id number] [employer] [id number] Buhl Viabil 10mm 8.5fr 6cm 200cm Fully Covered Self Expand Pull - [id number] - [id number] Implanted:Qty : 1 on 12/18/2020 by Dandre Chavez MD at [facility] Explanted:Qty : 1 on 12/21/2020 by Dandre Chavez MD at [facility] Stent N/A: Bile Duct [employer] 01/22/2023 [id number] / [id number] / [employer]anza [id number] Buhl Viabil 10mm 8.5fr 6cm 200cm Fully Covered Self Expand Pull - [id number] - [id number] Implanted:Qty : 1 on 10/23/2019 by Dandre Chavez MD at [facility] Explanted:Qty : 1 on 10/25/2019 by Dandre Chavez MD N/A: Bile Duct [employer] 06/09/2022 [id number] / [id number] / [employer] [id number] Shields Flexi-Stent 5fr 9cm Small Pigtail Flexible .035in Stent - [id number] Implanted:Qty : 1 on 10/23/2019 by Dandre Chavez MD at [facility] Explanted:Qty : 1 on 10/25/2019 by Dandre Chavez MD N/A: Pancreas [employer] 04/26/2024 [id number] / / [id number] Procedures Procedure Name Priority Date/Time Associated Diagnosis Comments COLONOSCOPY REPORT 10/22/2014 SERUM HEPATITIS PANEL Routine 04/26/2012 12:36 PM POLICE OFFICER BOOKING from Last 3 Months or Most Recently Relevant to Health Maintenance Results * COLONOSCOPY REPORT (10/22/2014) Anatomical Region Laterality Modality Other Narrative 10/22/2014 Ordered by an unspecified provider. us Historical Provider GI PROCEDURE ORDERABLES F inal Result * Serum Hepatitis panel (04/26/2012 12:36 PM POLICE OFFICER BOOKING) HBV surface ag NONREAC NONREAC HISTO RICAL [...] THIS TEST. Serum 04/26/2012 12:3 6 PM POLICE OFFICER BOOKING Yamilka Oropeza MD LAB BLOOD ORDERABLES Final Result HISTORICAL RESULTS from Last 3 Months or Most Recently Relevant to Health Maintenance Insurance [facility] PL[facility] Advance Directives For more information, please contact: [phone] * Full Code (Latest Code Status on [...] 7:26 PM 12/17/2020 9:04 PM Care Teams Gauger Chief Relationship Specialty Start Date End Date Norm Carrillo MD [address] [facility] [address] [address] PCP - General Internal Medicine 01/06/22 Dandre Chavez MD [address] [facility] [address] [place] [address] Consulting Physician Gastroenterology 10/25/19 Danielito [place] MD [address] [facility] [address] [place] [address] Surgeon General Surgery 07/07/21
--- NOTE | 2024-12-25 14:00 | PC.NURSE ---
Pt requested further pain medicine. Dr. Benton was consulted and he placed an order for toradol. Pt refused this medication and asked for more dilaudid. If I am here then I want to have the medication that worked before. Toradol does not work for me. Medication was returned to the [facility] and the physician said that she was not going to recieve any more dilaudid.
--- NOTE | 2024-12-25 14:15 | ECG_ITS ---
Test Date: 2024-12-25 14:07:51 Measurements Intervals [place] Rate: 60 P: 34 AL: 143 QRS: -8 QRSD: 93 T: -4 QT: 427 QTc: 429 Interpretive Statements SINUS RHYTHM DELAYED PRECORDIAL R/S TRANSITION VOLTAGE CRITERIA FOR LVH BORDERLINE ST-T WAVE ABNORMALITY- ANT/INF LEADS BASELINE ARTIFACT- I, II, AVR, AVF, V1 BORDERLINE ECG Compared to ECG 12/25/2024 11:20:50 No significant changes Electronically Signed On 12-25-2024 15:09:35 CDT by Shubham Quinn D.O.
[2024-12-25] MEDS: HYDROcodone/acetaminophen (*CRX) 5-325 MG TABLET 1 TAB PO (14:25)
[2024-12-25 15:10] LABS: Troponin I < 0.012 ng/mL (0.000-0.034)
== END 2024-12-25 15:53 | disposition home or self-care (01) ==
PROVIDERS: Emergency Provider Emergency Medicine; PCP Family Medicine
DX: J18.9 Pneumonia, unspecified organism (principal); R07.89 Other chest pain; Z90.49 Acquired absence of other specified parts of digestive tract; R94.31 Abnormal electrocardiogram [ECG] [EKG]
CPT/HCPCS: 36415; 71046; 71275; 80053; 81001; 83690; 84484; 85025; 85610; 85730; 93005; 96374; 99284; A9270; J1171; Q9967

== ENCOUNTER 2024-12-26 13:41 | Emergency (ER) | payer OTHER, SELFPAY ==
[2024-12-26] VITALS (7 sets, daily range): BP systolic 137–146; BP diastolic 88–95; PULSE 65–72; RESP 12–20; TEMP 36.6–36.7; O2SAT 95–100
--- NOTE | ~2024-12-26 | XR_ITS ---
EXAMINATION: XR chest 2V, 12/26/2024 14:44 CDT HISTORY: right sided chest pain COMPARISON: No comparisons available. Technique: 2 views obtained. Findings: Minimal basilar infiltrates No pneumothorax. Heart is normal size. Mediastinal and hilar contours are within normal limits. Bony thorax no acute abnormality. Impression: Early bilateral pneumonia Reviewed, dictated and finalized at location P. Impression: Early bilateral pneumonia
--- OUTSIDE RECORDS SUMMARY | 2024-12-26 13:45 | XMS_ITS | Clinical Summary ---
Author Organization [employer] Address 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 Gender Identity Not on file Sexual [...] 04/26/2019, 09/28/2018 Medical Devices Implanted Type Area Farm Equipment Engine Mechanic Device Identifier Shelf Expiration Date Model / Serial / Lot Seamguard Endogia 60 Prpl [id number] - [id number] Implanted:Qt y: 1 on 09/26/2022 by Reji Ramirez MD at [facility] N/A: Stomach [employer] [id number] 05/14/2025 12BSGTRI 60P / / [id number] Seamguard Endogia 60 Blk [id number] - [id number] Implanted:Qt y: 1 on 09/26/2022 by Reji Ramirez MD at [facility] N/A: Stomach [employer] [id number] 03/01/2025 12BSGTRI 60B / / [id number] Seamguard Endogia 60 Blk [id number] - [id number] Implanted:Qt y: 1 on 09/26/2022 by Reji Ramirez MD at [facility] N/A: Stomach [employer] [id number] 03/01/2025 12BSGTRI 60B / / [id number] Seamguard Endogia 60 Prpl [id number] - [id number] Implanted:Qt y: 1 on 09/26/2022 by Reji Ramirez MD at [facility] N/A: Stomach [employer] [id number] 05/14/2025 12BSGTRI 60P / / [id number] Seamguard Endogia 60 Prpl [id number] - [id number] Implanted:Qt y: 1 on 09/26/2022 by Reji Ramirez MD at [facility] N/A: Stomach [employer] [id number] 05/14/2025 12BSGTRI 60P / / [id number] Procedures Procedure Name Priority Date/Time Associated Diagnosis [...] ASSESSMENT: BI-RADS CATEGORY 1: Negative DICTATION LOCATION: [facility] Narrative 07/16/2020 7:15 AM CDT BILATERAL DIAGNOSTIC DIGITAL MAMMOGRAM WITH 3D TOMOSYNTHESIS AND CAD AND LIMITED RIGHT BREAST SONOGRAM DATE: 07/15/2020 1:01 PM HISTORY: Abnormal outside CT report right breast. TECHNIQUE: A bilateral diagnostic tomogram was performed and is compared to outside studies from [facility] dated 09/21/2007. Low Dose full field [...] and is compared to outside studies from [facility] dated 09/21/2007. Low Dose full field [...] ASSESSMENT: BI-RADS CATEGORY 1: Negative DICTATION LOCATION: [facility] us Aleah Peraza MD MAMMO ORDERABLES Final Result from Last 3 Months or Most Recently Relevant to Health Maintenance Insurance [facility] OPTIONS PPO [id number] RX OPTUM RX Member Subscriber Plan / Payer (Ef fective 2022-Present) Name:Rsoe Guallpa Relation to Subscriber:Spouse Payer ID:Not on file Group ID:[id number] Type:RX Commercial Address: [address] RX AGUILAR PLANS (INTERNAL) [facility] Internal Plans Advance Directives For more information, please contact: [phone] * Full Code (Latest Code Status on File) Date Activated Date Inactivated Comments 09/30/2022 1:24 AM 09/30/2022 7:01 PM * Full Code Date Activated Date Inactivated Comments 09/26/2022 3:36 PM 09/28/2022 9:04 PM * Full Code Date Activated Date Inactivated Comments 09/26/2022 8:56 AM 09/26/2022 3:36 PM * Full Code Date Activated Date Inactivated Comments 09/01/2022 11:32 AM 09/01/2022 5:31 PM Care Teams Dietary Cook Relationship Specialty Start Date End Date Emerson Watson MD [address] [place] [address] [place] [address] PCP - General Family Practice 09/20/22
--- OUTSIDE RECORDS SUMMARY | 2024-12-26 13:45 | XMS_ITS | Encounter Summary ---
Author Organization [employer] Address 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 01/13/2005 8:30 AM CDT [facility] [employer] URINE ORDERABLES Final Result Performing Organization Address [facility] Phone Number INTERFACE SYSTEM Refer to [...] ORDERABLES Final R esult Performing Organization Address City/[facility] Co de Phone Number INTERFACE [...] ORDERABLES Final R esult Performing Organization Address City/[facility] Co de Phone Number INTERFACE SYSTEM Refer to clinic/hospital department * POC , URINE (01/12/2005 8:20 AM CDT) HCG QUAL URINE Negative Negative INTER FACE SYSTEM SPECIFIC GRAVITY UA 1.015 1.001 - 1.035 INTERFACE SYSTEM 01/12/2005 8:20 AM CDT Michel Irby MD POINT OF CARE TESTING Final R esult Performing Organization Address [facility] Phone Number INTERFACE SYSTEM Refer to [...] ORDERABLES Final Re sult Performing Organization Address [facility] Phone Number INTERFACE SYSTEM Refer to clinic/hospital department * HEMOGLOBIN AND HEMATOCRIT (01/12/2005 8:05 AM CDT) HEMOGLOBIN 14.2 11.8 - 14.8 g/dL INTERFACE SYSTEM HEMATOCRIT 42.8 35.5 - 44.0 % INTERFACE SYSTEM 01/12/2005 8:05 AM CDT Michel Irby MD HEMATOLOGY ORDERABLES Final R esult Performing Organization Address [facility] Phone Number INTERFACE SYSTEM Refer to clinic/hospital department documented in this encounter Visit Diagnoses Diagnosis Dysmenorrhea- Primary documented in this encounter Care Teams Bonsai Tender Relationship Specialty Start Date End Date Emerson Watson MD [address] [place] [address] [place] [address] PCP - General Family Practice 09/20/22 documented as of this encounter
--- OUTSIDE RECORDS SUMMARY | 2024-12-26 13:45 | XMS_ITS | Encounter Summary ---
Author Organization [employer] Address 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
--- OUTSIDE RECORDS SUMMARY | 2024-12-26 13:45 | XMS_ITS | Encounter Summary ---
Author Organization [employer] Address [address] [place] [address] Care Team Providers Care Returns Supervisor Name Role Phone Emerson Watson MD [...] on file Legal Sex Female 3:33 AM COORDINATOR OF EVALUATION Gender Identity Not on file Sexual Orientation Not on file documented as of this encounter Plan of Treatment Not on file documented as of this encounter Visit Diagnoses Diagnosis Abnormality in heart rate/rhythm, antepartum condition or complication- Primary documented in this encounter Care Teams Returns Supervisor Relationship Specialty Start Date End Date Emerson Watson MD [address] [place] [address] [place] [address] PCP - General Family Practice 09/20/22 documented as of this encounter
--- OUTSIDE RECORDS SUMMARY | 2024-12-26 13:45 | XMS_ITS | Patient Health Record ---
Author Organization [facility] Address [address] [place] [address] Support Name Relationship Address Phone Rose Guallpa Guarantor Unknown [phone] Reason For Referral No Information Plan Of Treatment No Information
--- OUTSIDE RECORDS SUMMARY | 2024-12-26 13:45 | XMS_ITS | Encounter Summary ---
Author Organization [employer] Address [address] [place] [address] Care Team Providers Care Medicare Compliance Auditor Name Role Phone Emerson Watson MD Primary Care Provider Encounter Details Date Type Department Care Team (Late st Contact Info) Description 09/26/2006 Outpatient Historical HIS PATIENT IN A BED Michel Irby MD [address] [place], [place] [phone] Pelvic Peritoneal Adhesions, Female (Postoperative) (Postinfection) (Primary Dx) Social History Tobacco Use Types Packs/Day Years Used Date Smoking Tobacco: Never Assessed Comments Unknown Sex and Gender Information Value Date Recorded Sex Assigned at Not on file 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
--- OUTSIDE RECORDS SUMMARY | 2024-12-26 13:45 | XMS_ITS | Patient Health Record ---
Author Organization [facility] Address [address] [place] [address] Care Team Providers Care Scarf Gluer Name Role Phone Mitali Wade Primary Care Provider Unavail able JOANN ERAZO, INOCENTE Unavailable Allergies Allergen (clinical drug ingredient) Drug/Non Drug Allergy documented on EMR Reaction Allergy Type Onset Date Status codeine Codeine Sulfate Unknown Drug Allergy A ctive lisinopril Lisinopril Unknown Drug Allergy Activ e Sulfamethoxazole Unknown Drug Allergy Active tetracycline Tetracycline HCl Unknown Drug Allergy Active Reason For Referral No Information Medications Medication SIG (Take, Route, Frequency, Duration) Notes Start Date End Date Status ALPRAZolam Active Hyoscyamine Sulfate SL 0.125 MG 1 tablet under the tongue and allow to dissolve as needed Sublingual QID; Duration: 30 days 11/25/2020 Active Protonix 40 MG 1 tablet Orally BID before meals; Duration: 30 day(s) 11/25/2020 Active oxyCODONE HCl 5 MG 1 tablet as needed Orally every 6 hrs Active Ondansetron 4 MG DISSOLVE 1 TABLET ON TONGUE 4 TIMES A DAY; Duration: 30 Active Reglan 5 MG 1 tablet before meal s Orally Twice a day Active Cyclobenzaprine HCl Not-Taking Metoprolol Tartrate 50 MG 1 tablet with food Orally Twice a day Active Bystolic Not-Taking Fluoxetine Active Dicyclomine HCl 10 MG 1 capsules Orally 3 times a day; Duration: 90 Not-Taking Aimovig Active traZODone HCl Active Ubrelvy Active SUMAtriptan Succinate 6 MG/0.5ML 0.5 ml may repeat dose after 1 hour as needed Subcutaneous Once a day Active Hyoscyamine Sulfate ER 0.375 MG TAKE 1 TABLET BY MOUTH EVERY 12 HOURS; Duration: 30 Active Dicyclomine HCl 20 MG 1 tablet Orally 3 time a day; Duration: 30 day(s) 05/24/2021 Active Ondansetron 4 MG 1 tablet on the tong ue and allow to dissolve Orally Once a day; Duration: 30 day(s) 05/24/2021 Active Social History Tobacco Use: Social History Observation Description Date Details (start date - stop date) Never Smoker NA - NA Tobacco Use/Smoking Question Answer Notes Are you a nonsmoker Problems Problem Type SNOMED Code ICD Code Onset Dates Problem Status W/U Status Risk Notes Problem Irritable bowel syndrome with diarrhea (682639160) Irritable bowel syndrome with diarrhea (K58.0) Active confirmed Problem 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 Problem Dysphagia (20083700) Dysphagia, unspecified (R13.10) Active confirmed 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
--- OUTSIDE RECORDS SUMMARY | 2024-12-26 13:45 | XMS_ITS | Encounter Summary ---
Author Organization [facility] Address [address] [place] [address] Care Team Providers Care Dietetic Aide Name Role Phone Emerson Watson MD Primary Care Provider [phone] Encounter Details Date Type Department Care Team (Late st Contact Info) Description 05/11/2001 Outpatient Historical [facility] [address] [facility] [address] [address] Henri Pina MD [address] 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
--- OUTSIDE RECORDS SUMMARY | 2024-12-26 13:45 | XMS_ITS | Encounter Summary ---
Author Organization [facility] Address 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 Pediatric (12 years and under): 1.5 - [...] AM CDT Ordered by an unspecified provider. [facility] Provider HEMATOLOGY ORDERABLES Edited Performing Organization Address City/[facility] de Phone Number INTERFACE SYSTEM Refer to [...] MD HEMATOLOGY ORDERABLES Edited Performing Organization Address [facility] Co de Phone Number INTERFACE [...] Provider HEMATOLOGY ORDERABLES Edited Performing Organization Address City/[facility] de Phone Number INTERFACE SYSTEM Refer to [...] Provider HEMATOLOGY ORDERABLES Edited Performing Organization Address [facility] Phone Number INTERFACE SYSTEM Refer [...] MD HEMATOLOGY ORDERABLES Edited Performing Organization Address [facility] Phone Number INTERFACE SYSTEM Refer [...] MD HEMATOLOGY ORDERABLES Edited Performing Organization Address [facility] Phone Number INTERFACE SYSTEM Refer to clinic/hospital department * (ABNORMAL) C-REACTIVE PROTEIN (10/01/2006 9:12 PM CDT) CRP 2.1(H) 0.0 - 0.8 mg/dL INTERFACE SYSTEM 10/01/2006 9:12 PM CDT Norris Perdomo MD CHEMISTRY ORDERABLES Edited Performing Organization Address [facility] Phone Number INTERFACE SYSTEM Refer [...] and non- Americans is available on the [facility] Intranet at: [email or web address] Select: Lab Policies and Procedures Select: Reference Ranges - GFR 10/01/2006 9:12 PM CDT Norris Perdomo MD CHEMISTRY ORDERABLES Edited Performing Organization Address [facility] Co de Phone Number INTERFACE SYSTEM Refer to clinic/hospital department * ED HOLD (10/01/2006 9:12 PM CDT) SPECIMEN HOLD, BLOOD 7 days INTERFACE SYSTEM 10/01/2006 9:12 PM CDT Norris Perdomo MD CHEMISTRY ORDERABLES Edited Performing Organization Address [facility] Co de Phone Number INTERFACE SYSTEM Refer to clinic/hospital department documented in this encounter Visit Diagnoses Diagnosis Abdominal pain, unspecified site- Primary documented in this encounter Care Teams Industrial Electrical Engineer Relationship Specialty Start Date End Date Emerson Watson MD [address] [place] [address] [place] [address] PCP - General Family Practice 09/20/22 documented as of this encounter
--- OUTSIDE RECORDS SUMMARY | 2024-12-26 13:45 | XMS_ITS | Clinical Summary ---
Author Organization [facility] Address [address] [place] [address] Care Team Providers Care Pipeline Welder Name Role Phone Dandre Chavez MD Unavailable [phone] Danielito Irving MD Unavailable [phone] Norm Carrillo MD Primary Care Provider [phone] Allergies Active Allergy Reactions Criticality Noted Date [...] (06/18/2021): Added automatically from request for surgery [id number] Epigastric pain 05/16/2021 Epigastric abdominal pain 12/17/2020 Hepatic steatosis 12/17/2020 Intractable abdominal pain 10/16/2019 Overview (10/24/2019): Added automatically from request for surgery [id number] Gastroesophageal reflux dise ase with esophagitis without [...] (12/18/2020): Added automatically from request for surgery [id number] Acute tonsillitis due to oth er specified organisms 04/07/2018 06/28/2021 Assessment & Plan (04/07/2018 10:02 AM GUEST ATTENDANT): Patient demonstrates acute exudate of tonsillitis. Patient was initially seen at [facility] urgent care. I spoke with the [...] 07/03/201506/28 Overview (06/30/2016): Has tingling sensation Aldosteronism ([facility]/H[facility]) 06/29/2015 04/0 06/2021 Overview (07/02/2016): Hyperaldosteronism Fibrositis [...] week 07/06/2021 How often do you attend [facility] or moravian services? More than 4 times per year 07/06/2021 Do you belong to any clubs o r organizations such as hoahaoism groups, unions, fraternal or athletic groups, or [...] on file Legal Sex Female 5:23 PM GUEST ATTENDANT Gender Identity Not on file Sexual Orientation Not on file Obstetrics History Last Filed Vital Signs Vital Sign Reading Time Taken Comments Blood Pressure 129/87 02/03/2022 5:07 PM GUEST ATTENDANT Pulse 60 02/03/2022 5:07 PM GUEST ATTENDANT Temperature 36.6 C (97.8 F) 02/03/2022 1:04 PM GUEST ATTENDANT Respiratory Rate 16 02/03/2022 5:07 PM GUEST ATTENDANT Oxygen Saturation 95% 02/03/2022 5:07 PM GUEST ATTENDANT Inhaled Oxygen Concentration - - Weight 103.4 kg (227 lb 15.3 oz) 02/03/2022 1:04 PM GUEST ATTENDANT Height 162.6 cm (5' 4) 02/03/2022 1:04 PM GUEST ATTENDANT Body Mass Index 39.13 02/03/2022 1:04 PM GUEST ATTENDANT Plan of Treatment Health Maintenance Due Date [...] Discontinued 10/22/2014 Medical Devices Explanted Type Area Jumpbasting Machine Operator Device Identifier Shelf Expiration Date Model / Serial / Lot [employer] 6575 Shields Flexi-Stent 7fr 9cm Small Pigtail Flexible .035in Stent - [id number] Implanted:Qty : 1 on 12/18/2020 by Dandre Chavez MD at [facility] Explanted:Qty : 1 on 12/21/2020 by Dandre Chavez MD at [facility] Stent N/A: Pancreas [employer] 07/24/2025 [id number] / / [id number] Conmed Aranza [id number] Cofield Viabil 10mm 8.5fr 6cm 200cm Fully Covered Self Expand Pull - [id number] - [id number] Implanted:Qty : 1 on 12/18/2020 by Dandre Chavez MD at [facility] Explanted:Qty : 1 on 12/21/2020 by Dandre Chavez MD at [facility] Stent N/A: Bile Duct Conmed Aranza 01/22/2023 [id number] / [id number] / Conmed Aranza [id number] Cofield Viabil 10mm 8.5fr 6cm 200cm Fully Covered Self Expand Pull - [id number] - [id number] Implanted:Qty : 1 on 10/23/2019 by Dandre Chavez MD at [facility] Explanted:Qty : 1 on 10/25/2019 by Dandre Chavez MD N/A: Bile Duct Conmed Aranza 06/09/2022 [id number] / [id number] / [employer] 6555 Hsields Flexi-Stent 5fr 9cm Small Pigtail Flexible .035in Stent - [id number] Implanted:Qty : 1 on 10/23/2019 by Dandre Chavez MD at [facility] Explanted:Qty : 1 on 10/25/2019 by Dandre Chavez MD N/A: Pancreas [employer] 04/26/2024 [id number] / / [id number] Procedures Procedure Name Priority Date/Time Associated Diagnosis Comments COLONOSCOPY REPORT 10/22/2014 SERUM HEPATITIS PANEL Routine 04/26/2012 12:36 PM GUEST ATTENDANT from Last 3 Months or Most Recently Relevant to Health Maintenance Results * COLONOSCOPY REPORT (10/22/2014) Anatomical Region Laterality Modality Other Narrative 10/22/2014 Ordered by an unspecified provider. us Historical Provider GI PROCEDURE ORDERABLES F inal Result * Serum Hepatitis panel (04/26/2012 12:36 PM GUEST ATTENDANT) HBV surface ag NONREAC NONREAC HISTO RICAL [...] THIS TEST. Serum 04/26/2012 12:3 6 PM GUEST ATTENDANT Yamilka Oropeza MD LAB BLOOD ORDERABLES Final Result HISTORICAL RESULTS from Last 3 Months or Most Recently Relevant to Health Maintenance Insurance [facility]PPO Address: [address] [place] [address] [facility]PPO Address: [address] [place] [address] Advance Directives For more information, please contact: [phone] * Full Code (Latest Code Status on [...] 7:26 PM 12/17/2020 9:04 PM Care Teams Pipeline Welder Relationship Specialty Start Date End Date Norm Carrillo MD [address] [facility] [address], [place] [address] PCP - General Internal Medicine 01/06/22 Dandre Chavez MD [address] [facility] [address] [place] [address] Consulting Physician Gastroenterology 10/25/19 Danielito Irving MD [address] [facility] [address] [place] [address] Surgeon General Surgery 07/07/21
--- NOTE | 2024-12-26 14:32 | ECG_ITS ---
Test Date: 2024-12-26 16:26:03 Measurements Intervals [place] Rate: 60 P: 35 TX: 124 QRS: -9 QRSD: 95 T: -5 QT: 418 QTc: 418 Interpretive Statements SINUS RHYTHM DELAYED PRECORDIAL R/S TRANSITION LEFT VENTRICULAR HYPERTROPHY MINIMAL Q WAVES- HIGH LATERAL LEADS BORDERLINE ST-T WAVE ABNORMALITY- ANT/INF LEADS BASELINE ARTIFACT- I, II, III, AVR, AVL, AVF BORDERLINE ECG Compared to ECG 12/25/2024 14:07:51 No significant changes Electronically Signed On 12-26-2024 16:40:58 CDT by Shubham Quinn D.O.
--- OUTSIDE RECORDS SUMMARY | 2024-12-26 14:42 | XMS_ITS | Encounter Summary ---
Author Organization [facility] Address Critical access hospital[address] [place] [address] Care Team Providers Care Setter Out Name Role Phone Delia Ozuna MD Primary Care Provider Un available None, Provider Primary Care Provider Unavaila Mitali Branch PA-C Primary Care Provider + [phone] Angel Andrade MD Unavailable [phone] Simon Hughes MD Primary Care Provider [phone] Pedro Phan MD Primary Care Provider + Simon Hughes MD Primary Care Provider [phone] Emerosn Watson MD Primary Care Provider + [phone] Emerson Watson MD Primary Care Provider [phone] Emerson Watson MD Primary Care Provider [phone] Emerson Watson MD Primary Care Provider [phone] Reji Ramirez MD Unavailable [phone] Encounter Details Date Type Department Care Team (Late st Contact Info) Description 09/26/2019 Prep for Procedure [facility] Day Services [address] [place] [address] Adeola Ng MD [address] [place] [address] [place] [address] Social History Tobacco Use Types Packs/Day Years Used Date Smoking Tobacco: Never Smokeless Tobacco: Never Alcohol Use Standard Drinks/Week Comments Yes 0 (1 standard drink = 0.6 oz pur e alcohol) socially Comments No Sex and Gender Information Value Date Recorded Sex Assigned at Female 04/10/2024 11:52 AM BREAKDOWN PERSON Legal Sex Female 7:00 PM CDT Gender Identity Female 05/08/2024 9:04 PM BREAKDOWN PERSON Sexual Orientation Straight 05/08/2024 9: 04 PM BREAKDOWN PERSON COVID-19 Exposure Response Date Recorded In the [...] Date Author Status No 09/25/2019 10:23 PM MARGIET Arcelia Ahn RN Active documented in this encounter Plan of Treatment Upcoming Encounters Date Type Department Care Team (Late st Contact Info) Description 01/21/2025 2:20 PM CDT Office Visit [address] [place] [address] Emerson Watson MD [address] [place] [address] [place] [address] documented as of this encounter Results * PRE-SURGICAL/PRE-PROCEDURE CORONAVIRUS (COVID 19) (09/28/2019 1:40 PM CDT) CORONAVIRUS SARS COV 2 PCR (RESP) NOT DETECTED NOT DETECTED 09/29/2019 8:59 PM CDT [facility] Comment: A Not Detected (negative) test [...] providers and patients using the following websites: https://www.[employer].com/home/Covid-19/HCP/QuestIVD/fact- sheet.html https://www.[employer]Inc.com/home/Covid-19/Patients/ QuestIVD/fact-sheet.html This test has been authorized by the FDA under an Emergency Use Authorization (EUA) for use by authorized laboratories. Due to the current public health emergency, [facility] is receiving a high volume of samples [...] about COVID-19 can be found at the [facility] website: www.View[employer]Inc.com/Covid19. Test performed at [facility] [address] [place] [address] Director: SKINNY MOLINA DO,MPH NASOPHARYNGEAL SWAB / Unknown 09/28/2019 1:40 PM CDT us Adeloa Ng MD MICROBIOLOGY - GENERAL ORDER KHANH Final Result [facility] [address] [address] documented in this encounter Visit Diagnoses Diagnosis [...] Rule Out 02/24/2020 02/24/2020 02/26/2020 4:47 PM BREAKDOWN PERSON COVID-19 Rule Out 04/23/2020 04/23/2020 04/24/2020 5:21 PM BREAKDOWN PERSON COVID-19 Rule Out 09/24/2020 09/24/2020 09/24/2020 9:55 PM CDT COVID-19 Rule Out 02/21/2021 02/21/2021 02/21/2021 5:22 PM BREAKDOWN PERSON COVID-19 Rule Out 03/13/2021 03/13/2021 03/13/2021 3:13 AM BREAKDOWN PERSON COVID-19 Rule Out 04/04/2021 04/04/2021 04/04/2021 2:40 PM BREAKDOWN PERSON COVID-19 Rule Out 04/04/2021 04/04/2021 04/06/2021 2:04 AM BREAKDOWN PERSON COVID-19 Rule Out 12/11/2021 12/11/2021 12/11/2021 8:30 PM CDT COVID-19 Rule Out 07/26/2022 07/26/202207/26/2022 4:24 PM CDT COVID-19 Rule Out 03/10/2023 03/10/2023 03/10/2023 2:55 PM BREAKDOWN PERSON COVID-19 Rule Out 03/18/2023 03/18/2023 03/18/2023 2:42 PM BREAKDOWN PERSON RSV 03/18/2023 03/18/2023 03/28/2023 12:3 2 AM BREAKDOWN PERSON Influenza - Seasonal 03/18/2023 03/18/2023 024 12:32 AM BREAKDOWN PERSON COVID-19 Rule Out 11/24/2023 11/24/2023 11/24/2023 10:13 AM CDT COVID-19 Rule Out 03/22/2024 03/22/2024 03/22/2024 4:59 PM BREAKDOWN PERSON COVID-19 Rule Out 04/30/2024 04/30/2024 04/30/2024 1:33 PM BREAKDOWN PERSON documented as of this encounter Care Teams Setter Out Relationship Specialty Start Date End Date Delia Ozuna MD PCP - General INTERNAL MEDICINE 09/16/19 03/25/20 None, MD Verito PCP - General 03/27/20 04/22/20 Mitali Mcdowell, PA-C [address] [facility] [address] [place] [address] PCP - General PHYSICIAN CLIP ON SUNGLASSES INSPECTOR 04/23/20 02/07/21 Simno Hughes MD [address] [facility] [place] [address] PCP - General INTERNAL MEDICINE 02/08/21 08/03/21 Pedro Phan MD [address] [place] [address] PCP - General FAMILY PRACTICE 08/04/21 09/09/21 Simon Hughes MD [facility] [facility] [address] PCP - General INTERNAL MEDICINE 09/10/21 06/15/22 Emerson Watson MD [address] [facility] [place] [address] PCP - General FAMILY PRACTICE 06/16/22 08/01/22 Emerson Watson MD [address] [facility] [place] [address] PCP - General FAMILY PRACTICE 08/03/22 08/07/22 Emerson Watson MD [address] [facility] [place] [address] PCP - General FAMILY PRACTICE 08/02/22 08/02/22 Emerson Watson MD [address] [facility] [place] [address] PCP - General FAMILY PRACTICE 08/11/22 Angel Andrade MD [address] [address] Referring Physician GASTROENTEROLOGY 12/17/20 [place] [address], [place] [address] SURGERY 03/10/23 documented as of this encounter
--- OUTSIDE RECORDS SUMMARY | 2024-12-26 14:42 | XMS_ITS | Clinical Summary ---
Author Organization [facility] Address 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 Gender Identity Not on file Sexual Orientation [...] 04/26/2019, 09/28/2018 Medical Devices Implanted Type Area Cold Header Device Identifier Shelf Expiration Date Model / Serial / Lot Seamguard Endogia 60 Prpl [id number] - [id number] Implanted:Qt y: 1 on 09/26/2022 by Reji Ramirez MD at [facility] N/A: Stomach [employer] [id number] 05/14/2025 [id number] 60P / / [id number] Seamguard Endogia 60 Blk [id number] - [id number] Implanted:Qt y: 1 on 09/26/2022 by Reji Ramirez MD at [facility] N/A: Stomach [employer] [id number] 03/01/2025 12BSGTRI 60B / / [id number] Seamguard Endogia 60 Blk [id number] - [id number] Implanted:Qt y: 1 on 09/26/2022 by Reji Ramirez MD at [facility] N/A: Stomach [employer] [id number] 03/01/2025 12BSGTRI 60B / / [id number] Seamguard Endogia 60 Prpl [id number] - [id number] Implanted:Qt y: 1 on 09/26/2022 by Reji Ramirez MD at [facility] N/A: Stomach [employer] [id number] 05/14/2025 12BSGTRI 60P / / [id number] Seamguard Endogia 60 Prpl [id number] - [id number] Implanted:Qt y: 1 on 09/26/2022 by Reji Ramirez MD at [facility] N/A: Stomach [employer] [id number] 05/14/2025 12BSGTRI 60P / / [id number] Procedures Procedure Name Priority Date/Time Associated Diagnosis [...] is compared to outside studies from [facility] dated 09/21/2007. Low Dose full field [...] is compared to outside studies from [facility] dated 09/21/2007. Low Dose full field [...] Relevant to Health Maintenance Insurance [facility] OPTIONS PPO [id number] RX OPTUM RX Member Subscriber Plan / Payer (Ef fective 2022-Present) Name:Rose Guallpa Relation to Subscriber:Spouse Payer ID:Not on file Group ID:[id number] Type:RX Commercial Address: [address]IE [address] RX AGUILAR PLANS (INTERNAL) [facility] Internal Plans Advance Directives For more information, please contact: [phone] * Full Code (Latest Code Status on File) Date Activated Date Inactivated Comments 09/30/2022 1:24 AM 09/30/2022 7:01 PM * Full Code Date Activated Date Inactivated Comments 09/26/2022 3:36 PM 09/28/2022 9:04 PM * Full Code Date Activated Date Inactivated Comments 09/26/2022 8:56 AM 09/26/2022 3:36 PM * Full Code Date Activated Date Inactivated Comments 09/01/2022 11:32 AM 09/01/2022 5:31 PM Care Teams Possum Trapper Relationship Specialty Start Date End Date Emerson Watson MD [address] [place] [address] [place] [address] PCP - General Family Practice 09/20/22
--- OUTSIDE RECORDS SUMMARY | 2024-12-26 14:42 | XMS_ITS | Encounter Summary ---
Author Organization [facility] Address [facility] [place] [address] Care Team Providers Care [employer] Special Education Teacher Name Role Phone Angel Andrade MD Unavailable [phone] Emerson Watson MD Primary Care Provider [phone] Reji Ramirez MD Unavailable [phone] Encounter Details Date Type Department Care Team (Late st Contact Info) Description 09/19/2023 Mohivet Message Enc [facility] [address] [place] [address] Emerson Watson MD [address] [place] [address] Health Form for Work Social History [...] How often do you attend chur or congregational services? More than 4 times per year [...] Recorded Patient Health Questionnaire-2 Score 0 08/24/2023 [facility] - Occupational Stress [...] Sex Assigned at Female 04/10/2024 11:52 AM CIRCUIT RIDER Legal Sex Female 7:00 PM CDT Gender Identity Female 05/08/2024 9:04 PM CIRCUIT RIDER Sexual Orientation Straight 05/08/2024 9: 04 PM CIRCUIT RIDER documented as of this encounter Functional Status [...] Description 01/21/2025 2:20 PM CDT Office Visit [facility] [address] [place] [address] Emerson Watson MD [address] [place] [address] documented as of this encounter Visit Diagnoses Not on filedocumented in this encounter Additional Health Concerns Infection Onset Date Last Indicated Resolved Time COVID-19 Rule Out 11/24/2023 11/24/2023 11/24/2023 10:13 AM CDT COVID-19 Rule Out 03/22/2024 03/22/2024 03/22/2024 4:59 PM CIRCUIT RIDER COVID-19 Rule Out 04/30/2024 04/30/2024 04/30/2024 1:33 PM CIRCUIT RIDER Assessment Noted Time PHQ-9 Depression Total Score: 0 02/14/20 12:57 PM CIRCUIT RIDER documented as of this encounter Care Teams [employer] Special Education Teacher Relationship Specialty Start Date End Date Emerson Watson MD [address] [place] [address] [place] [address] PCP - General FAMILY PRACTICE 08/11/22 Angel Andrade MD [address] [address] Referring Physician GASTROENTEROLOGY 12/17/20 [place] [address], [facility] [address] SURGERY 03/10/23 documented as of this encounter
--- OUTSIDE RECORDS SUMMARY | 2024-12-26 14:42 | XMS_ITS | Encounter Summary ---
Author Organization [facility] Address 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 01/13/2005 8:30 AM CDT [facility] GetO2 URINE ORDERABLES Final Result Performing Organization Address [facility] Phone Number INTERFACE SYSTEM Refer to clinic/hospital [...] ORDERABLES Final R esult Performing Organization Address [facility] Co de Phone Number INTERFACE [...] ORDERABLES Final R esult Performing Organization Address [facility] Co de Phone Number INTERFACE SYSTEM Refer to clinic/hospital department * POC , URINE (01/12/2005 8:20 AM CDT) HCG QUAL URINE Negative Negative INTER FACE SYSTEM SPECIFIC GRAVITY UA 1.015 1.001 - 1.035 INTERFACE SYSTEM 01/12/2005 8:20 AM CDT Michel Irby MD POINT OF CARE TESTING Final R esult Performing Organization Address [facility] Phone Number INTERFACE SYSTEM Refer to clinic/hospital [...] ORDERABLES Final Re sult Performing Organization Address [facility] Phone Number INTERFACE SYSTEM Refer to clinic/hospital department * HEMOGLOBIN AND HEMATOCRIT (01/12/2005 8:05 AM CDT) HEMOGLOBIN 14.2 11.8 - 14.8 g/dL INTERFACE SYSTEM HEMATOCRIT 42.8 35.5 - 44.0 % INTERFACE SYSTEM 01/12/2005 8:05 AM CDT Michel Irby MD HEMATOLOGY ORDERABLES Final R esult Performing Organization Address [facility] Phone Number INTERFACE SYSTEM Refer to clinic/hospital department documented in this encounter Visit Diagnoses Diagnosis Dysmenorrhea- Primary documented in this encounter Care Teams Scientist Propagator Relationship Specialty Start Date End Date Emerson Watson MD [address] [place] [address] [place] [address] PCP - General Family Practice 09/20/22 documented as of this encounter
--- OUTSIDE RECORDS SUMMARY | 2024-12-26 14:42 | XMS_ITS | Encounter Summary ---
Author Organization [facility] Address [facility] [place] [address] Care Team Providers Care Plumbing And Heating Mechanic Name Role Phone Angel Andrade MD Unavailable [phone] Simon Hughes MD Primary Care Provider [phone] Emerson Watson MD Primary Care Provider [phone] Emerson Watson MD Primary Care Provider [phone] Emerson Watson MD Primary Care Provider [phone] Emerson Watson MD Primary Care Provider [phone] Reji Ramirez MD Unavailable [phone] Encounter Details Date Type Department Care Team (Late st Contact Info) Description 04/13/2022 MyChart Message Enc [facility] [address] [place] [address] Emerson Watson MD [address] [place] [id number] Recent blood pressures Social History Tobacco Use [...] Sex Assigned at Female 04/10/2024 11:52 AM SUPERVISOR SHED WORKERS Legal Sex Female 7:00 PM CDT Gender Identity Female 05/08/2024 9:04 PM SUPERVISOR SHED WORKERS Sexual Orientation Straight 05/08/2024 9: 04 PM SUPERVISOR SHED WORKERS COVID-19 Exposure Response Date Recorded In the last 10 days, have yo u been in contact with someone who was confirmed or suspected to have Coronavirus/COVID-19? No / Unsure 04/01/2022 4:19 PM SUPERVISOR SHED WORKERS documented as of this encounter Functional Status [...] next week. No changes at this time RVISOR SHED WORKERS documented in this encounter Plan of Treatment Upcoming Encounters Date Type Department Care Team (Late st Contact Info) Description 01/21/2025 2:20 PM CDT Office Visit [address] [place] [address] Emerson Watson MD [address] [place] [address] documented as of this encounter Visit Diagnoses Not on filedocumented in this encounter Additional Health Concerns Infection Onset Date Last Indicated Resolved Time COVID-19 Rule Out 07/26/2022 07/26/2022 07/26/2022 4:24 PM CDT COVID-19 Rule Out 03/10/2023 03/10/2023 03/10/2023 2:55 PM SUPERVISOR SHED WORKERS COVID-19 Rule Out 03/18/2023 03/18/2023 03/18/2023 2:42 PM SUPERVISOR SHED WORKERS RSV 03/18/2023 03/18/2023 03/28/2023 12:3 2 AM SUPERVISOR SHED WORKERS Influenza - Seasonal 03/18/2023 03/18/2023 024 12:32 AM SUPERVISOR SHED WORKERS COVID-19 Rule Out 11/24/2023 11/24/2023 11/24/2023 10:13 AM CDT COVID-19 Rule Out 03/22/2024 03/22/2024 03/22/2024 4:59 PM SUPERVISOR SHED WORKERS COVID-19 Rule Out 04/30/2024 04/30/2024 04/30/2024 1:33 PM SUPERVISOR SHED WORKERS Assessment Noted Time PHQ-9 Depression Total Score: 0 10/02/19 2:26 PM CDT documented as of this encounter Care Teams Plumbing And Heating Mechanic Relationship Specialty Start Date End Date Simon Hughes MD [address] [place] [address] [place] [address] PCP - General INTERNAL MEDICINE 09/10/21 06/15/22 Emerson Watson MD [address] [place] [address] PCP - General FAMILY PRACTICE 06/16/22 08/01/22 Emerson Watson MD [address] [place] [address] PCP - General FAMILY PRACTICE 08/03/22 08/07/22 Emerson Watson MD [address] [place] [address] PCP - General FAMILY PRACTICE 08/02/22 08/02/22 Emerson Watson MD [address] [place] [address] [place] [address] PCP - General FAMILY PRACTICE 08/11/22 Angel Andrade MD [address] [address] Referring Physician GASTROENTEROLOGY 12/17/20 [place] [address], [place] [address] SURGERY 03/10/23 documented as of this encounter
--- OUTSIDE RECORDS SUMMARY | 2024-12-26 14:42 | XMS_ITS | Encounter Summary ---
Author Organization [facility] Address [facility] [place] [address] Care Team Providers Care Meter Tester Polyphase Name Role Phone Angel Andrade MD Unavailable [phone] Simon Hughes MD Primary Care Provider [phone] Emerson Watson MD Primary Care Provider [phone] Emerson Watson MD Primary Care Provider [phone] Emerson Watson MD Primary Care Provider [phone] Emerson Watson MD Primary Care Provider [phone] Reji Ramirez MD Unavailable [phone] Encounter Details Date Type Department Care Team (Late st Contact Info) Description 03/25/2022 MyChart Message Enc [facility] [address] [place] [address] Emerson Watson MD [address] [place], [place] [id number] Rose Guallpa 1970 Social History Tobacco Use [...] Sex Assigned at Female 04/10/2024 11:52 AM DIRECTOR DECISION SUPPORT Legal Sex Female 7:00 PM CDT Gender Identity Female 05/08/2024 9:04 PM DIRECTOR DECISION SUPPORT Sexual Orientation Straight 05/08/2024 9: 04 PM DIRECTOR DECISION SUPPORT COVID-19 Exposure Response Date Recorded In the last 10 days, have yo u been in contact with someone who was confirmed or suspected to have Coronavirus/COVID-19? No / Unsure 03/23/2022 10:57 AM DIRECTOR DECISION SUPPORT documented as of this encounter Functional Status [...] need OV to assess and med changes CTOR DECISION SUPPORT documented in this encounter Plan of Treatment Upcoming Encounters Date Type Department Care Team (Late st Contact Info) Description 01/21/2025 2:20 PM CDT Office Visit [address] [place] [address] Emerson Watson MD [address] [place] [address] documented as of this encounter Visit Diagnoses Not on filedocumented in this encounter Additional Health Concerns Infection Onset Date Last Indicated Resolved Time COVID-19 Rule Out 07/26/2022 07/26/2022 07/26/2022 4:24 PM CDT COVID-19 Rule Out 03/10/2023 03/10/2023 03/10/2023 2:55 PM DIRECTOR DECISION SUPPORT COVID-19 Rule Out 03/18/2023 03/18/2023 03/18/2023 2:42 PM DIRECTOR DECISION SUPPORT RSV 03/18/2023 03/18/2023 03/28/2023 12:3 2 AM DIRECTOR DECISION SUPPORT Influenza - Seasonal 03/18/2023 03/18/2023 024 12:32 AM DIRECTOR DECISION SUPPORT COVID-19 Rule Out 11/24/2023 11/24/2023 11/24/2023 10:13 AM CDT COVID-19 Rule Out 03/22/2024 03/22/2024 03/22/2024 4:59 PM DIRECTOR DECISION SUPPORT COVID-19 Rule Out 04/30/2024 04/30/2024 04/30/2024 1:33 PM DIRECTOR DECISION SUPPORT Assessment Noted Time PHQ-9 Depression Total Score: 0 10/02/19 2:26 PM CDT documented as of this encounter Care Teams Meter Tester Polyphase Relationship Specialty Start Date End Date Simon Hughes MD [address] [place] [address] [place] [address] PCP - General INTERNAL MEDICINE 09/10/21 06/15/22 Emerson Watson MD [facility] [place] [address] PCP - General FAMILY PRACTICE 06/16/22 08/01/22 Emerson Watson MD [address] [place] [address] PCP - General FAMILY PRACTICE 08/03/22 08/07/22 Emerson Watson MD [address] [facility] [place] [address] PCP - General FAMILY PRACTICE 08/02/22 08/02/22 Emerson Watson MD [address] [place] [address] [place] [address] PCP - General FAMILY PRACTICE 08/11/22 Angel Andrade MD [address] [address] Referring Physician GASTROENTEROLOGY 12/17/20 [place] [address] [place] [address] SURGERY 03/10/23 documented as of this encounter
--- OUTSIDE RECORDS SUMMARY | 2024-12-26 14:42 | XMS_ITS | Clinical Summary ---
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 Vitamin D deficiency 02/15/2023 Prediabetes 02/13/2023 Nausea and vomiting 09/30/2022 SBO (small bowel obstruction) ([facility]) 09/30/2022 Colitis 08/03/2022 Overview (08/03/2022): Added automatically from request for surgery [id number] Postoperative abdominal pain 08/03/2022 Overview (09/14/2023): Added automatically from request for surgery [id number] Skin lesion 08/03/2022 Overview (09/06/2022): Added automatically from request for surgery [id number] Stage 2 chronic kidney disease 03/23/2022 Post-operative [...] (09/14/2023): Added automatically from request for surgery [id number] Added automatically from request for surgery [id number] Gastritis and duodenitis 10/11/2019 Migraine without aura [...] (08/03/2022): Added automatically from request for surgery [id number] Chest pain 05/16/2022 02/03/2023 Encounter for health-related screening 10/12/2020 09/18/2023 Atypical chest pain 09/25/2019 08/17/19 Acute tonsillitis due to oth er specified organisms 04/07/2018 09/19/2019 Overview (09/11/2019): Last Assessment & Plan: Patient demonstrates acute exudate of tonsillitis. Patient was initially seen at [facility] urgent care. I spoke with the [...] Encounters Date Type Department Care Team Description 10/03/2024 Scan [facility] INFO SRVCS Scanned, Doc Med Group from Last 3 Months Immunizations Immunization Administration [...] from your doctor or pharmacy? Never 07/02/2024 [facility] Utilities Answer Date Recorded In the past 12 months has th e electric, gas, oil, or water company threatened to shut off services in your [...] How often do you attend chur or gnosticist services? More than 4 times per year 05/16/2022 Do you belong to any clubs o r organizations such as christianity groups, unions, fraternal or athletic groups, or [...] Recorded Patient Health Questionnaire-2 Score 0 07/05/2024 [facility] - Occupational Stress Questionnaire Answer Date Recorded [...] place to sleep or slept in a penitentiary (including now)? No 06/27/2022 Housing Stability Vital Sign Answer Gregory e Recorded In the last 12 months, was t here a time when you were not able to pay the mortgage or rent on time? No 07/02/2024 In the past 12 months, how m any times have you moved where you were living? 0 07/02/2024 At any time in the past 12 m [facility], were you homeless or living in a penitentiary (including now)? No 07/02/2024 Comments No Sex and Gender Information Value Date Recorded Sex Assigned at Female 04/10/2024 11:52 AM SOIL TESTER Legal Sex Female 7:00 PM CDT Gender Identity Female 05/08/2024 9:04 PM SOIL TESTER Sexual Orientation Straight 05/08/2024 9: 04 PM SOIL TESTER Last Filed Vital Signs Vital Sign Reading [...] Description 01/21/2025 2:20 PM CDT Office Visit [facility] [address] [place] [id number] Emerson Watson MD [address] [place] [address] Health Maintenance Due Date Last Done Comments Annual Physical 1972 Hepatitis C 11/05/1987 Hepatitis B Vaccines (1 of 3 - 19+ 3-dose series) 1988 Pneumococcal Vaccine: 50+ Years (1 of 1 - PCV) 11/05/2019 Zoster Vaccines (1 of 2) 11/05/2019 Colorectal Cancer Screening Colonoscopy (10 Years) 10/22/2024 10/22/2014 COVID-19 Vaccine ( season) 2024 02/13/2023, 04/01/2021, 05/15/2020, Additional history exists Influenza Adult (#1) 2024 01/01/2024, 02/13/2023, 01/24/2022, Additional history exists Mammogram Screening 06/28/2025 06/29/2023, 07/15/2020, 02/01/2016 DTaP, Tdap and Td Vaccines (3 - Td or Tdap) 04/26/2029 04/26/2019, 09/28/2018 PHQ-2 (Physician [place]) Completed 07/05/2024 Meningococcal B Vaccine Aged Out [...] in ADLs upon discharge from hospital Lifestyle No 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 us Documents Scanned SCANNING Final Result from Last 3 Months or Most Recently Relevant to Health Maintenance Insurance [place] [employer] Advance Directives * Full Code (Latest Code [...] 8:34 PM 09/26/2019 8:32 PM Care Teams Architecture Drafter Relationship Specialty Start Date End Date Emerson Watson MD [address] [place] [address] PCP - General FAMILY PRACTICE 08/11/22 Angel Andrade MD [address] [facility] [address], [place] [address] Referring Physician GASTROENTEROLOGY 12/17/20 [place] [address], [place] [address] SURGERY 03/10/23
--- OUTSIDE RECORDS SUMMARY | 2024-12-26 14:42 | XMS_ITS | Clinical Summary ---
Author Organization [facility] Address [address] [place] [address] Care Team Providers Care Tape Folding Machine Operator Name Role Phone Dandre Chavez MD Unavailable [phone] Danielito Irving MD Unavailable [phone] Norm Carrillo MD Primary Care Provider Allergies Active Allergy [...] (06/18/2021): Added automatically from request for surgery [id number] Epigastric pain 05/16/2021 Epigastric abdominal pain 12/17/2020 Hepatic steatosis 12/17/2020 Intractable abdominal pain 10/16/2019 Overview (10/24/2019): Added automatically from request for surgery [id number] Gastroesophageal reflux dise ase with esophagitis without [...] (12/18/2020): Added automatically from request for surgery [id number] Acute tonsillitis due to oth er specified organisms 04/07/2018 06/28/2021 Assessment & Plan (04/07/2018 10:02 AM POWERTRAIN DESIGN ENGINEER): Patient demonstrates acute exudate of tonsillitis. Patient was initially seen at [facility] urgent care. I spoke with [...] 07/03/201506/28 Overview (06/30/2016): Has tingling sensation Aldosteronism ([facility]) 06/29/2015 04/0 06/2021 Overview (07/02/2016): Hyperaldosteronism [...] week 07/06/2021 How often do you attend [facility] or hinduism services? More than 4 times per year 07/06/2021 Do you belong to any clubs o r organizations such as confucianist groups, unions, fraternal or athletic groups, or [...] on file Legal Sex Female 5:23 PM POWERTRAIN DESIGN ENGINEER Gender Identity Not on file Sexual Orientation Not on file Obstetrics History Last Filed Vital Signs Vital Sign Reading Time Taken Comments Blood Pressure 129/87 02/03/2022 5:07 PM POWERTRAIN DESIGN ENGINEER Pulse 60 02/03/2022 5:07 PM POWERTRAIN DESIGN ENGINEER Temperature 36.6 C (97.8 F) 02/03/2022 1:04 PM POWERTRAIN DESIGN ENGINEER Respiratory Rate 16 02/03/2022 5:07 PM POWERTRAIN DESIGN ENGINEER Oxygen Saturation 95% 02/03/2022 5:07 PM POWERTRAIN DESIGN ENGINEER Inhaled Oxygen Concentration - - Weight 103.4 kg (227 lb 15.3 oz) 02/03/2022 1:04 PM POWERTRAIN DESIGN ENGINEER Height 162.6 cm (5' 4) 02/03/2022 1:04 PM POWERTRAIN DESIGN ENGINEER Body Mass Index 39.13 02/03/2022 1:04 PM POWERTRAIN DESIGN ENGINEER Plan of Treatment Health Maintenance Due Date [...] Discontinued 10/22/2014 Medical Devices Explanted Type Area Hand Mexican Food Maker Device Identifier Shelf Expiration Date Model / Serial / Lot [employer] Inc 6575 Shields Flexi-Stent 7fr 9cm Small Pigtail Flexible .035in Stent - [id number] Implanted:Qty : 1 on 12/18/2020 by Dandre Chavez MD at [facility] Explanted:Qty : 1 on 12/21/2020 by Dandre Chavez MD at [facility] Stent N/A: Pancreas [employer] 07/24/2025 [id number] / / [id number] Conmed Aranza [id number] Wilbur Viabil 10mm 8.5fr 6cm 200cm Fully Covered Self Expand Pull - [id number] - [id number] Implanted:Qty : 1 on 12/18/2020 by Dandre Chavez MD at [facility] Explanted:Qty : 1 on 12/21/2020 by Dandre Chavez MD at [facility] Stent N/A: Bile Duct Conmed Aranza 01/22/2023 [id number] / [id number] / Conmed Aranza [id number] Wilbur Viabil 10mm 8.5fr 6cm 200cm Fully Covered Self Expand Pull - [id number] - [id number] Implanted:Qty : 1 on 10/23/2019 by Dandre Chavez MD at [facility] Explanted:Qty : 1 on 10/25/2019 by Dandre Chavez MD N/A: Bile Duct Conmed Aranza 06/09/2022 [id number] / [id number] / [employer] 6555 Shields Flexi-Stent 5fr 9cm Small Pigtail Flexible .035in Stent - [id number] Implanted:Qty : 1 on 10/23/2019 by Dandre Chavez MD at [facility] Explanted:Qty : 1 on 10/25/2019 by Dandre Chavez MD N/A: Pancreas [employer] 04/26/2024 [id number] / / [id number] Procedures Procedure Name Priority Date/Time Associated Diagnosis Comments COLONOSCOPY REPORT 10/22/2014 SERUM HEPATITIS PANEL Routine 04/26/2012 12:36 PM POWERTRAIN DESIGN ENGINEER from Last 3 Months or Most Recently Relevant to Health Maintenance Results * COLONOSCOPY REPORT (10/22/2014) Anatomical Region Laterality Modality Other Narrative 10/22/2014 Ordered by an unspecified provider. us Historical Provider GI PROCEDURE ORDERABLES F inal Result * Serum Hepatitis panel (04/26/2012 12:36 PM POWERTRAIN DESIGN ENGINEER) HBV surface ag NONREAC NONREAC HISTO RICAL [...] THIS TEST. Serum 04/26/2012 12:3 6 PM POWERTRAIN DESIGN ENGINEER Yamilka Oropeza MD LAB BLOOD ORDERABLES Final Result HISTORICAL RESULTS from Last 3 Months or Most Recently Relevant to Health Maintenance Insurance [facility] Advance Directives For more information, please contact: [phone] * Full Code (Latest Code Status on [...] 7:26 PM 12/17/2020 9:04 PM Care Teams Tape Folding Machine Operator Relationship Specialty Start Date End Date Norm Carrillo MD [address] [facility] [address], [place] [address] PCP - General Internal Medicine 01/06/22 Dandre Chavez MD [address] [facility] [address] [place] [address] Consulting Physician Gastroenterology 10/25/19 Danielito Irving MD [address] [facility] [address] [place] [address] Surgeon General Surgery 07/07/21
--- OUTSIDE RECORDS SUMMARY | 2024-12-26 14:42 | XMS_ITS | Encounter Summary ---
Author Organization [facility] Address [facility] [place] [address] Care Team Providers Care Chamber [employer] Division Manager Name Role Phone Angel Andrade MD Unavailable [phone] Emerson Watson MD Primary Care Provider [phone] Reji Ramirez MD Unavailable [phone] Encounter Details Date Type Department Care Team (Late st Contact Info) Description 10/31/2023 [email or web address] Message Enc [facility] [address] [place] [address] Emerson Watson MD [address] [place] [address] Medication Options for neck pain Social [...] How often do you attend chur or jehovah's witness services? More than 4 times per year 05/16/2022 Do you belong to any clubs o r organizations such as zoroastrian groups, unions, fraternal or athletic groups, or [...] Recorded Patient Health Questionnaire-2 Score 0 08/24/2023 [facility] - Occupational [...] place to sleep or slept in a prison (including now)? No 06/27/2022 Comments No Sex and Gender Information Value Date Recorded Sex Assigned at Female 04/10/2024 11:52 AM MECHANICAL MAINTENANCE ENGINEER Legal Sex Female 7:00 PM CDT Gender Identity Female 05/08/2024 9:04 PM MECHANICAL MAINTENANCE ENGINEER Sexual Orientation Straight 05/08/2024 9: 04 PM MECHANICAL MAINTENANCE ENGINEER documented as of this encounter Functional [...] 2:20 PM CDT Office Visit [facility] [address] [place] [address] Emerson Watson MD [address] [place] [address] documented as of this encounter Visit Diagnoses Not on filedocumented in this encounter Additional Health Concerns Infection Onset Date Last Indicated Resolved Time COVID-19 Rule Out 11/24/2023 11/24/2023 11/24/2023 10:13 AM CDT COVID-19 Rule Out 03/22/2024 03/22/2024 03/22/2024 4:59 PM MECHANICAL MAINTENANCE ENGINEER COVID-19 Rule Out 04/30/2024 04/30/2024 04/30/2024 1:33 PM MECHANICAL MAINTENANCE ENGINEER Assessment Noted Time PHQ-9 Depression Total Score: 0 02/14/20 12:57 PM MECHANICAL MAINTENANCE ENGINEER documented as of this encounter Care Teams [employer] Division Manager Relationship Specialty Start Date End Date Emerson Watson MD [address] [place] [address] PCP - General FAMILY PRACTICE 08/11/22 Angel Andrade MD [address] [facility] [address], [place] [address] Referring Physician GASTROENTEROLOGY 12/17/20 [place] [address] [place] [address] SURGERY 03/10/23 documented as of this encounter
--- OUTSIDE RECORDS SUMMARY | 2024-12-26 14:42 | XMS_ITS | Encounter Summary ---
Author Organization [facility] Address [address] [place] [address] Care Team Providers Care Naval Aircrewman Name Role Phone Emerson Watson MD Primary Care Provider [phone] Encounter Details Date Type Department Care Team (Late st Contact Info) Description 05/11/2001 Outpatient Historical [facility] [address] [facility] [address] [id number] Henri Pina MD [address] [facility] [address] [place] [address] Social History Tobacco Use Types Packs/Day Years Used Date Smoking Tobacco: Never Assessed Comments Unknown Sex and Gender Information Value Date Recorded Sex Assigned at Not on file Legal Sex Female 3:33 AM HAND SPINNER Gender Identity Not on file Sexual Orientation Not on file documented as of this encounter Plan of Treatment Not on file documented as of this encounter Visit Diagnoses Not on filedocumented in this encounter Care Teams Naval Aircrewman Relationship Specialty Start Date End Date Emerson Watson MD [address] [place] [address] [place] [address] PCP - General Family Practice 09/20/22 documented as of this encounter
--- OUTSIDE RECORDS SUMMARY | 2024-12-26 14:42 | XMS_ITS | Encounter Summary ---
Author Organization [employer] Address [address] [place] [address] Care Team Providers Care Metal Sheet Roller Operator Name Role Phone Emerson Watson MD Primary Care Provider [phone] Encounter Details Date Type Department Care Team (Late st Contact Info) Description 09/26/2006 Outpatient Historical HIS PATIENT IN A BED Michel Irby MD [address] [facility] [address] [place], [place] [id number] Pelvic Peritoneal Adhesions, Female (Postoperative) (Postinfection) (Primary Dx) Social History Tobacco Use Types Packs/Day Years Used Date Smoking Tobacco: Never Assessed Comments Unknown Sex and Gender Information Value Date Recorded Sex Assigned at Not on file Legal Sex Female 3:33 AM SPAR MACHINE OPERATOR Gender Identity Not on file [...] Primary documented in this encounter Care Teams Metal Sheet Roller Operator Relationship Specialty Start Date End Date Emerson Watson MD [address] [place] [address] [place] [address] PCP - General Family Practice 09/20/22 documented as of this encounter
--- OUTSIDE RECORDS SUMMARY | 2024-12-26 14:42 | XMS_ITS | Encounter Summary ---
Author Organization [employer] Address [address] [place] [address] Care Team Providers Care Bulk Plant Operator Name Role Phone Emerson Watson MD [...] on file Legal Sex Female 3:33 AM MEAT CARVER Gender Identity Not on file Sexual Orientation Not on file documented as of this encounter Plan of Treatment Not on file documented as of this encounter Visit Diagnoses Diagnosis Abnormality in heart rate/rhythm, antepartum condition or complication- Primary documented in this encounter Care Teams Bulk Plant Operator Relationship Specialty Start Date End Date Emerson Watson MD [address] [place] [address] [place] [address] PCP - General Family Practice 09/20/22 documented as of this encounter
--- OUTSIDE RECORDS SUMMARY | 2024-12-26 14:42 | XMS_ITS | Encounter Summary ---
Author Organization [employer] Address [address] [place] [address] Care Team Providers Care Police Stenographer Name Role Phone Emerson Watson MD Primary Care Provider [phone] Encounter Details Date Type Department Care Team (Latest Contact Info) Description 05/11/2001 Outpatient Historical [facility] Henri Chris MD [address] [facility] [address] [place] [address] HEART DISEASE NOS (Primary Dx) Social History Tobacco Use Types Packs/Day Years Used Date Smoking Tobacco: Never Assessed Comments Unknown Sex and Gender Information Value Date Recorded Sex Assigned at Not on file Legal Sex Female 3:33 AM PUTTER IN Gender Identity Not on file Sexual Orientation Not on file documented as of this encounter Plan of Treatment Not on file documented as of this encounter Visit Diagnoses Diagnosis Heart disease, unspecified- Primary documented in this encounter Care Teams Police Stenographer Relationship Specialty Start Date End Date Emerson Watson MD [facility] [place] [address] PCP - General Family Practice 09/20/22 documented as of this encounter
--- OUTSIDE RECORDS SUMMARY | 2024-12-26 14:42 | XMS_ITS | Encounter Summary ---
Author Organization [employer] Address 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 Gender Identity Not on file Sexual Orientation [...] WITH DIFFERENTIAL (10/03/2006 8:08 AM CDT) Pathologist [facility] WBC 11.0(H) 4.0 - 9.8 K/uL INTERFACE [...] Provider HEMATOLOGY ORDERABLES Edited Performing Organization Address City/State/[facility] Co de Phone Number INTERFACE SYSTEM Refer to clinic/hospital department * (ABNORMAL) CBC WITH DIFFERENTIAL (10/02/2006 12:07 PM CDT) Pathologist [facility] NEUTROPHILS 83(H) 45 - 70 % INTERFAC [...] MD HEMATOLOGY ORDERABLES Edited Performing Organization Address [facility] Phone Number INTERFACE [...] patients with mechanical heart valves or post [place]. Pediatric (12 years and under): 1.5 - [...] AM CDT Ordered by an unspecified provider. [facility] Provider HEMATOLOGY ORDERABLES Edited Performing Organization Address City/[facility] de Phone Number INTERFACE SYSTEM [...] MD HEMATOLOGY ORDERABLES Edited Performing Organization Address [facility] Co de Phone Number INTERFACE SYSTEM Refer [...] Provider HEMATOLOGY ORDERABLES Edited Performing Organization Address City/[facility] de Phone Number INTERFACE SYSTEM [...] Provider HEMATOLOGY ORDERABLES Edited Performing Organization Address [facility] Phone Number INTERFACE [...] MD HEMATOLOGY ORDERABLES Edited Performing Organization Address City/[facility] Phone Number INTERFACE [...] MD HEMATOLOGY ORDERABLES Edited Performing Organization Address [facility] Phone Number INTERFACE SYSTEM Refer to clinic/hospital department * (ABNORMAL) C-REACTIVE PROTEIN (10/01/2006 9:12 PM CDT) CRP 2.1(H) 0.0 - 0.8 mg/dL INTERFACE SYSTEM 10/01/2006 9:12 PM CDT Norris Perdomo MD CHEMISTRY ORDERABLES Edited Performing Organization Address [facility] Phone Number INTERFACE [...] and non- Americans is available on the [facility] Intranet at: [email or web address] Select: Lab Policies and Procedures Select: Reference Ranges - GFR 10/01/2006 9:12 PM CDT Norris Perdomo MD CHEMISTRY ORDERABLES Edited Performing Organization Address City/[facility] Co de Phone Number INTERFACE SYSTEM Refer to clinic/hospital department * ED HOLD (10/01/2006 9:12 PM CDT) SPECIMEN HOLD, BLOOD 7 days INTERFACE SYSTEM 10/01/2006 9:12 PM CDT Norris Perdomo MD CHEMISTRY ORDERABLES Edited Performing Organization Address City/[facility] Co de Phone Number INTERFACE SYSTEM Refer to clinic/hospital department documented in this encounter Visit Diagnoses Diagnosis Abdominal pain, unspecified site- Primary documented in this encounter Care Teams Concrete Gun Operator Relationship Specialty Start Date End Date Emerson Watson MD [address] [place] [address] [place] [address] PCP - General Family Practice 09/20/22 documented as of this encounter
[2024-12-26] MEDS: IPRATROPIUM 0.5 MG/ALBUTEROL SULFATE 2.5 MG (BASE) AMPUL.NEB 3 ML INHALATION (14:52)
--- NOTE | 2024-12-26 15:03 | ED.GENADULT ---
HPI - General Adult General Chief complaint: Upper Respiratory Infection Stated complaint: pneumonia and pleurisy diag yesterday, c/o pain Time Seen by Provider: 12/26/24 14:18 History of Present Illness HPI narrative: Rose Guallpa is a 54-year-old female who was here yesterday and diagnosed with pneumonia and pleurisy pain. She states that she was given a dose of Dilaudid and hydrocodone here and was discharged home on ibuprofen. She states that she has been home and trying ibuprofen her pain has been getting worse she does not feel that ibuprofen is helping her right-sided pleurisy pain. She denies shortness of breath but states the pain is worse with breathing in and out. Related Data Home Medications ?Medication ?Instructions ?Recorded ?Confirmed ?Last Taken ?Type alprazolam 1 mg tablet mg 12/14/24 Unknown History amlodipine 5 mg tablet mg 12/14/24 Unknown History fluoxetine 40 mg capsule mg 12/14/24 Unknown History spironolactone 25 mg tablet mg 12/14/24 Unknown History trazodone 100 mg tablet mg 12/14/24 Unknown History Allergies Allergy/AdvReac Type Severity Reaction Status Date / Time azithromycin Allergy Unknown Unknown Verified 12/26/24 13:46 codeine Allergy Unknown Unknown Verified 12/26/24 13:46 Sulfa (Sulfonamide Allergy Unknown Unknown Verified 12/26/24 13:46 Antibiotics) tetracycline Allergy Unknown Unknown Verified 12/26/24 13:46 lisinopril AdvReac Intermediate Unknown Verified 12/26/24 13:46 Review of Systems Review of Systems: All systems reviewed & are unremarkable except as noted in HPI and below Exam Narrative: GENERAL: Well-appearing, well-nourished, and in no acute distress. HEAD: Normocephalic, atraumatic. EYES: PERRLA and EOMI. ENT: Nares clear, no rhinorrhea or epistaxis. Mucous membranes moist. Oropharynx without tonsillar hypertrophy exudate or other lesions. NECK: Supple. No adenopathy or masses. No carotid bruits or JVD CHEST: Clear to auscultation. No respiratory distress. No wheezes rales or rhonchi HEART: Regular rate and rhythm. No murmur heard. Normal peripheral pulses. ABDOMEN: Soft, nontender, nondistended, normal active bowel sounds. EXTREMITIES: Normal range of motion. No edema. SKIN: Warm, dry, no rash. NEURO: No focal deficits. Alert and oriented x3. PSYCH: Normal mood and affect. Course Vital Signs Vital signs: Vital Signs Temperature 36.6 C 12/26/24 13:46 Pulse Rate 66 12/26/24 13:46 Respiratory Rate 20 12/26/24 13:46 Blood Pressure 137/90 12/26/24 13:46 Pulse Oximetry 97 12/26/24 13:46 Oxygen Delivery Room Air 12/26/24 13:46 Temperature 36.7 C 12/26/24 14:22 Pulse Rate 70 12/26/24 17:04 Respiratory Rate 13 12/26/24 17:04 Blood Pressure 146/95 H 12/26/24 17:04 Pulse Oximetry 100 12/26/24 17:04 Oxygen Delivery Room Air 12/26/24 14:30 Medical Decision Making MDM Narrative Medical decision making narrative: 54-year-old female was diagnosed with pneumonia yesterday started on Levaquin she did take her medication dose today presents with continued possibly worsening right chest wall pain that she had yesterday but feels worse today Patient's lung sounds clear slightly diminished in the bases concern for pneumo/ worsening pneumonia/ she was ruled out for a PE yesterday and not hypoxic here today sating 97% on RA plan to check cardiac work up try a duo neb Patient states that the DuoNeb might have helped a little bit with taking deep breath she was still having pain. I explained to her that we wanted to check lab work to ensure there was not anything new no or worsening findings today since she says that she was having worsening right-sided pain. I wanted to make sure she did end up following up or have rib fracture or worsening pneumonia or cardiac ischemia or dehydration her findings have anything on her labs that would require admission for her pneumonia infection. Her CBC shows mild leukocytosis of 10.3 otherwise unremarkable her CMP shows sodium 136 otherwise unremarkable with a negative troponin and unchanged EKG from yesterday. I updated her that after research I found that has been recommended to try indomethacin for her pleuritic pain which may be our beneficial than the ibuprofen that she was taking at home. Will give her a dose here and I will send her home with a prescription of indomethacin to take at home along with albuterol inhaler if helps at home. Medical Records Medical records reviewed: Yes I reviewed the external patient's medical records. Vital Signs Vital Signs: Vital Signs Temperature 36.6 C 12/26/24 13:46 Pulse Rate 66 12/26/24 13:46 Respiratory Rate 20 12/26/24 13:46 Blood Pressure 137/90 12/26/24 13:46 Pulse Oximetry 97 12/26/24 13:46 Oxygen Delivery Room Air 12/26/24 13:46 Temperature 36.7 C 12/26/24 14:22 Pulse Rate 70 12/26/24 17:04 Respiratory Rate 13 12/26/24 17:04 Blood Pressure 146/95 H 12/26/24 17:04 Pulse Oximetry 100 12/26/24 17:04 Oxygen Delivery Room Air 12/26/24 14:30 Lab Data 12/26/24 15:58 12/26/24 15:58 Labs: Lab Results 12/26/24 Range/Units 15:58 WBC 10.3 H (4.5-10.0) K/mm3 RBC 4.68 (4.2-5.4) M/mm3 Hgb 13.8 (12.0-15.0) g/dL Hct 43.0 (37.0-47.0) % MCV 91.9 (80-100) fl MCH 29.5 (26-34) pg MCHC 32.1 (32-36) g/dl RDW 13.4 (11.5-14.5) % Plt Count 271 (150-375) k/mm3 MPV 8.2 (7.4-10.4) fl Immature Gran % (Auto) 0.5 (0-0.5) % Neut % (Auto) 79.6 H (45.5-73.1) % Lymph % (Auto) 13.6 L (18.3-44.2) % [place] % (Auto) 4.9 (2.6-8.5) % Eos % (Auto) 0.8 (0-4.4) % Baso % (Auto) 0.6 (0.2-1.2) % Lymph # (Auto) 1.40 (0.9-3.2) K/mm3 [place] # (Auto) 0.5 (0.1-0.6) K/mm3 Eos # (Auto) 0.1 (0-0.3) K/mm3 Baso # (Auto) 0.1 (0.0-0.1) K/mm3 Abs Immat Gran (auto) 0.05 H (0.00-0.031) K/mm3 Absolute Neuts (auto) 8.2 H (1.3-6.7) K/mm3 Absolute Nucleated RBC 0.000 (0.0-0.012) K/mm3 Nucleated RBC % 0.0 (0.0-0.2) % Sodium 136 L (137-145) mmol/L Potassium 3.7 (3.4-5.0) mmol/L Chloride 104 (98-107) mmol/L Carbon Dioxide 25 (22-30) mmol/L Anion Gap 7 (4-12) mmol/L BUN 12 (7-17) mg/dL Creatinine 0.65 L (0.7-1.0) mg/dL Estim Creat Clear Calc 72 ml/min Estimated GFR > 60 (59 - ) Glucose 104 (65-110) mg/dL Calcium 8.7 (8.4-10.2) mg/dL Total Bilirubin 0.4 (0.2-1.3) mg/dL AST 25 (14-36) U/L ALT 19 (6-35) U/L Alkaline Phosphatase 92 (38-126) U/L Troponin I < 0.012 (0.000-0.034) ng/mL Total Protein 7.2 (6.3-8.2) g/dL Albumin 4.0 (3.5-5.1) g/dL ECG Data EKG #1: ECG completion date: 12/26/24 ECG completion time: 16:26 Prior ECG tracings: available for review Interpretation: Rate 60 ID 124 QRSd 95 QT 418 QTc 418 --[place]-- P 35 QRS -9 T -5 SINUS RHYTHM VOLTAGE CRITERIA FOR LVH [MEETS CRITERIA IN ONE OF: R(aVL), S(V1), R(V5), R(V5/V6)+S(V1)] Compared to ECG 12/25/2024 14:07:51 No significant changes Discharge Plan Discharge Clinical Impression: Pneumonia Qualifiers: Pneumonia type: due to unspecified organism Laterality: bilateral Lung location: unspecified part of lung Qualified Code(s): J18.9 - Pneumonia, unspecified organism Patient Disposition: Home Condition: Stable Instructions: Antibiotic Form Additional Instructions: continue the Levofloxacin as ordered, Continue to take the Indomethacin as ordered for pain. You may take Tylenol with this, do not take any additional ibuprofen with this medication. You may also use the albuterol inhaler as ordered if this helps with taking deep breaths Please follow up with your PCP in the next 5-7 days to ensure you are improving If you should devleop any new or worsening symptoms return to the ER Patient Language: Romanian Prescriptions: New indomethacin 50 mg capsule 50 mg PO TID 5 Days Qty: 15 0RF Rx Instructions: administer with food or milk albuterol sulfate [Ventolin HFA] 90 mcg/actuation HFA aerosol inhaler 2 puff inhalation QID PRN (Reason: shortness of breath or wheezing) Qty: 8.5 0RF No Action fluoxetine 40 mg capsule alprazolam 1 mg tablet amlodipine 5 mg tablet spironolactone 25 mg tablet trazodone 100 mg tablet phenazopyridine [Pyridium] 200 mg tablet 200 mg PO TID PRN (Reason: pain) Qty: 6 0RF amoxicillin-pot clavulanate 875-125 mg tablet 1 tablet PO Q12H 7 Days Qty: 14 0RF hydrocodone-acetaminophen 7.5-325 mg tablet 1 tablet PO Q6H MDD 4 tabs PRN (Reason: pain) 3 Days Qty: 12 0RF levofloxacin 750 mg tablet 750 mg PO DAILY 7 Days Qty: 7 0RF metoclopramide HCl [Reglan] 10 mg tablet 10 mg PO Q6H PRN (Reason: nausea and vomiting) Qty: 14 0RF Follow-up/Referrals: Walter,Emerson Fong MD [Primary Care Provider, Unknown] - 3 Days Stand Alone Forms: Work/School Release IP Time of Disposition: 16:46
[2024-12-26 16:05] LABS: Hematocrit 43.0 % (37.0-47.0); Hemoglobin 13.8 g/dL (12.0-15.0); Immature Granulocyte Percent A 0.5 % (0-0.5); Lymphocytes Absolute Auto 1.40 K/mm3 (0.9-3.2); Mean Corpuscular HGB Conc 32.1 g/dl (32-36); Mean Corpuscular Hemoglobin 29.5 pg (26-34); Mean Corpuscular Volume 91.9 fl (80-100); Nucleated Red Blood Cells Absolute Auto 0.000 K/mm3 (0.0-0.012); Nucleated Red Blood Cells Perc 0.0 % (0.0-0.2); Platelet Count Result 271 k/mm3 (150-375); Red Blood Count 4.68 M/mm3 (4.2-5.4); White Blood Count 10.3 K/mm3 (4.5-10.0)
[2024-12-26 16:17] LABS: Alanine Aminotransferase 19 U/L (6-35); Albumin Level 4.0 g/dL (3.5-5.1); Alkaline Phosphatase 92 U/L (38-126); Anion Gap 7 mmol/L (4-12); Aspartate Amino Transferase 25 U/L (14-36); Bilirubin,Total 0.4 mg/dL (0.2-1.3); Blood Urea Nitrogen 12 mg/dL (7-17); Calcium 8.7 mg/dL (8.4-10.2); Carbon Dioxide 25 mmol/L (22-30); Chloride 104 mmol/L (98-107); Estimated CRCL calculation 72 ml/min; Estimated Glomerular Filt Rate > 60; Glucose 104 mg/dL (65-110); Potassium 3.7 mmol/L (3.4-5.0); Sodium 136 mmol/L (137-145); Total Protein 7.2 g/dL (6.3-8.2)
[2024-12-26 16:45] LABS: Troponin I < 0.012 ng/mL (0.000-0.034)
[2024-12-26] MEDS: INDOMETHACIN 25 MG CAPSULE 50 MG PO (16:56)
== END 2024-12-26 17:04 | disposition home or self-care (01) ==
PROVIDERS: Emergency Provider Nurse Practitioner Family; PCP Family Medicine
DX: J18.9 Pneumonia, unspecified organism (principal); R94.31 Abnormal electrocardiogram [ECG] [EKG]; I51.7 Cardiomegaly
CPT/HCPCS: 36415; 71046; 80053; 84484; 85025; 93005; 94640; 99284; A9270